=== PATIENT | female | born 1940 | race Caucasian/White ===

== ENCOUNTER 2017-03-03 08:24 | Inpatient (IN) | payer MEDICARE, BC ==
[2017-03-03] MEDS ORDERED: Sodium Chloride 0.9% 10 ML Syringe FLUSH PRN (08:52)
--- NOTE | 2017-03-03 08:55 | EDM.PDOC ---
ED HPI GENERAL MEDICAL PROBLEM - General Chief Complaint: Syncope Stated Complaint: DIZZY,NAUSEA,UNSTABLE Time Seen by Provider: 03/03/17 08:50 Source of Information: Reports: Patient History Limitations: Reports: No Limitations - History of Present Illness INITIAL COMMENTS - FREE TEXT/NARRATIVE: 76-year-old female presents to the ED due to increasing shortness of breath and dizziness. Started about 3 days ago. She developed right shoulder pain with inspiration over the last day. No cough or sputum production. He is running a low-grade fever but 11 in the ED. Denies any genitourinary complaints other than frequency which is normal for her. She was up most of the night due to dyspnea. She has not taken her normal meds today yet. No change in her medications recently. On arrival O2 sats were in the low 80s and even on 4 L she 's only 91%. Feeling very weak and dizzy and near-syncopal when she stands up. Reports she has been eating and drinking not too badly. Onset: Gradual (Over the last 3-4 days per) Onset Date: 02/28/17 Duration: Day(s): Location: Reports: Chest (Right shoulder discomfort shortness of breath) Quality: Reports: Other (No chest pain.) Severity: Moderate Improves with: Reports: None Worsens with: Reports: Other (Standing and movement make things worse.) Context: Denies: Activity, Exercise, Lifting, Sick Contact, Trauma, Other Associated Symptoms: Reports: Chest Pain (Right shoulder pain), Cough, Fever/ Chills (Fever appreciated at 11), Loss of Appetite, Malaise, Shortness of Breath , Weakness (Generalized the). 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.) Right Shoulder Pain Score (Numeric/FACES): 5 - Related Data Allergies Allergy/AdvReac Type Severity Reaction Status Date / Time codeine Allergy Hives Verified 03/03/17 09:04 moxifloxacin [From Avelox] Allergy Itching Verified 03/03/17 09:04 Penicillins Allergy Hives Verified 03/03/17 09:04 Home Meds: Home Meds Albuterol [Ventolin HFA] 2 puff INH Q4HR PRN 03/03/17 [History] Bisacodyl [Dulcolax] 5 mg PO DAILY PRN 03/03/17 [History] Calcium Carbonate/Vitamin D3 [Calcium 500 + Vit D 400] 2 tab PO BID 03/03/17 [ History] Clemastine Fumarate 1 tab PO BID 03/03/17 [History] Fluticasone/Salmeterol [Advair Diskus 500-50] 1 puff INH BID 03/03/17 [History] Furosemide [Lasix] 40 mg PO ASDIRECTED PRN 03/03/17 [History] Ibuprofen 600 mg PO TID 03/03/17 [History] Levothyroxine [Synthroid] 100 mcg PO QAM 03/03/17 [History] Magnesium Oxide 500 mg PO BID 03/03/17 [History] Montelukast [Singulair] 10 mg PO QAM 03/03/17 [History] Omeprazole 20 mg PO QAM 03/03/17 [History] Valsartan/Hydrochlorothiazide [Valsartan-Hctz 80-12.5 mg Tab] 1 tab PO QAM 03/03 [History] Zolpidem [Ambien] 5 mg PO QPM 03/03/17 [History] amLODIPine [Norvasc] 5 mg PO QAM 03/03/17 [History] traMADol [Ultram] 50 mg PO Q4HR PRN 03/03/17 [History] Past Medical History Cardiovascular History: Reports: Heart Failure, SOB on Exertion Respiratory History: Reports: Asthma, COPD Genitourinary History: Reports: Urinary Incontinence (Urge incontinence) - Past Surgical History HEENT Surgical History: Reports: Adenoidectomy, Tonsillectomy GI Surgical History: Reports: Cholecystectomy Female Surgical History: Reports: Hysterectomy, Salpingo-Oophorectomy Social & Family History - Living Situation & Occupation Living situation: Reports: Single 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 Denies: Weight Loss Respiratory: Reports: Shortness of Breath, Wheezing, Cough. Denies: Pleuritic Chest Pain, Sputum, Hemoptysis, Other Cardiovascular: Reports: Blood Pressure Problem, Dyspnea on Exertion, Lightheadedness, Orthopnea, Palpitations. Denies: Chest Pain, Claudication ( Usually runs a little low.), Edema Endocrine: Reports: Fatigue (Occasional.) GI/Abdominal: Denies: Abdominal Pain : Reports: Frequency, Urgency Musculoskeletal: Reports: Joint Pain Skin: Reports: No Symptoms (Sometimes knees hips and low back.) Neurological: Reports: Dizziness, Difficulty Walking, Weakness. Denies: Headache (Often feels like she's going to pass out the last few days when she standing.), Numbness, Paresthesia, Pre-Existing Deficit, Seizure, Syncope, Tingling, Tremors, Trouble Speaking, Change in Speech Psychiatric: Reports: No Symptoms Hematologic/Lymphatic: Reports: No Symptoms Immunologic: Reports: No Symptoms ED EXAM, DIZZINESS - Physical Exam Exam: See Below Exam Limited By: No Limitations General Appearance: Alert, WD/WN, Mild Distress Eye Exam: Bilateral Eye: Normal Inspection Ears: Normal External Exam, Normal Canal, Hearing Grossly Normal Nose: Normal Inspection, Normal Mucosa Throat/Mouth: Normal Inspection, Normal Lips, Normal Oropharynx Head Exam: Atraumatic, Normocephalic Neck: Normal Inspection, Supple, Non-Tender, Full Range of Motion, Other ( Increased jugular venous pulsations.). No: Lymphadenopathy (L), Lymphadenopathy (R) Respiratory/Chest: Respiratory Distress (Mild tachypnea), Crackles (Both bases worse on the right as compared to the left.), Wheezing (Scattered wheezes.) Cardiovascular: Normal Peripheral Pulses, Regular Rate, Rhythm, No Edema, No Gallop, No Murmur, No Rub, JVD (3 cm from the angle of the mandible.) GI/Abdominal: Normal Bowel Sounds, Soft, Non-Tender, No Organomegaly, Distended (Tympany to percussion upper abdomen compatible with aerophagia.) Neurological: Alert, Normal Mood/Affect, Normal Dorsiflexion, CN II-XII Intact, Normal Plantar Flexion, Oriented x 3. No: Normal Gait Back Exam: Normal Inspection, Full Range of Motion Extremities: Normal Inspection, Normal Range of Motion, Non-Tender, No Pedal Edema, Normal Capillary Refill Psychiatric: Normal Affect, Normal Mood Skin Exam: Warm, Dry, Intact, Normal Color, No Rash EKG INTERPRETATION EKG Date: 03/03/17 Time: 08:55 Rhythm: NSR Rate (beats/min): 98 [place]: LAD-left axis deviation (mild LAD -5 degrees.) P-wave: present QRS: other (There are Q waves in leads 3 and aVF questionable old inferior wall myocardial infarction. Decreased both in short the limb leads.) ST-T: other (T waves are flat inverted in one and aVL.) QT: prolonged (Mildly prolonged at 393.) Course - Vital Signs Last Recorded V/S: Last Vital Signs Temp 38.1 C 03/03/17 08:47 Pulse 102 H 03/03/17 08:47 Resp 18 03/03/17 08:47 BP 93/46 L 03/03/17 08:47 Pulse Ox 91 L 03/03/17 09:27 Orthostatic Blood Pressure [ 110/50 Standing] Orthostatic Blood Pressure [ 102/48 Sitting] Orthostatic Blood Pressure [ 96/46 Supine] - Orders/Labs/Meds Orders: Active Orders 24 hr Category Date Time Status EKG Documentation Completion [RC] STAT Care 03/03/17 08:50 Active Orthostatic Vital Signs [RC] ASDIRECTED Care 03/03/17 08:55 Active Oxygen Therapy [RC] ASDIRECTED Care 03/03/17 08:51 Active Peripheral IV Care [RC] . DIRECTED Care 03/03/17 08:53 Active RT Aerosol Therapy [RC] ASDIRECTED Care 03/03/17 09:03 Active Chest 1V Frontal [CR] Stat Exams 03/03/17 08:50 Taken CULTURE BLOOD [BC] Stat Lab 03/03/17 09:12 Received CULTURE BLOOD [BC] Stat Lab 03/03/17 09:19 Received Azithromycin [Zithromax] 500 mg Med 03/03/17 10:42 Ordered Sodium Chloride 0.9% [Normal Saline] 250 ml IV ONETIME Sodium Chloride 0.9% [Saline Flush] Med 03/03/17 08:52 Active 10 ml FLUSH ASDIRECTED PRN cefTRIAXone [Rocephin] 2 gm Med 03/03/17 10:30 Active Sodium Chloride 0.9% [Normal Saline] 100 ml IV Q24H Blood Culture x2 Reflex Set [OM.PC] Stat Oth 03/03/17 08:53 Ordered Peripheral IV Insertion Adult [OM.PC] Stat Oth 03/03/17 08:53 Ordered Medication Orders Ceftriaxone Sodium 2 gm/ (Sodium Chloride) 100 mls @ 200 mls/hr IV Q24H [facility] Last Admin: 03/03/17 10:29 Dose: 200 mls/hr Sodium Chloride (Saline Flush) 10 ml FLUSH ASDIRECTED PRN PRN Reason: Keep Vein Open Last Admin: 03/03/17 09:59 Dose: 10 ml Labs: Laboratory Tests 03/03/17 03/03/17 03/03/17 Range/Units 08:51 09:05 09:05 WBC 26.67 H (3.98-10.04) K/mm3 RBC 4.87 (3.98-5.22) M/mm3 Hgb 12.8 (11.2-15.7) gm/L Hct 39.8 (34.1-44.9) % MCV 81.7 (79.4-94.8) fl MCH 26.3 (25.6-32.2) pg MCHC 32.2 (32.2-35.5) g/dl RDW Std Deviation 45.1 (36.4-46.3) fL Plt Count 249 (182-369) K/mm3 MPV 11.0 (9.4-12.3) fl Neutrophils % (Manual) 87 H (40-60) % Band Neutrophils % 0 (0-10) % Lymphocytes % (Manual) 8 L (20-40) % Atypical Lymphs % 0 % Monocytes % (Manual) 4 (2-10) % Eosinophils % (Manual) 1 (0.7-5.8) % Basophils % (Manual) 0 L (0.1-1.2) Platelet Estimate Adequate RBC Morph Comment Normal PT 13.3 H (8.0-13.0) SECONDS INR 1.21 Puncture Site Rt radial ABG pH 7.43 (7.35-7.45) ABG pCO2 36.3 (35.0-45.0) mmHg ABG pO2 55.0 L (80.0-100.0) mmHg ABG HCO3 23.7 (22.0-26.0) meq/L ABG O2 Saturation 92.2 L (96.0-97.0) % ABG Base Excess 0.3 (-2-2.0) Lei Test Positive A-a Gradient 130 mmHg O2 Delivery Device Nasal cannula Oxygen Flow Rate 4.0 FiO2 36.00 (21.00-100.00) % Sodium (136-145) mEq/L Potassium (3.5-5.1) mEq/L Chloride (98-107) mEq/L Carbon Dioxide (21-32) mEq/L Anion Gap (5-15) BUN (7-18) mg/dL Creatinine (0.55-1.02) mg/dL Est Cr Clr Drug Dosing mL/min Estimated GFR (MDRD) (>60) mL/min BUN/Creatinine Ratio (14-18) Glucose (83-115) mg/dL Calcium (8.5-10.1) mg/dL Magnesium (1.8-2.4) mg/dl Total Bilirubin (0.2-1.0) mg/dL AST (15-37) U/L ALT (14-59) U/L Alkaline Phosphatase (46-116) U/L CK-MB (CK-2) (0-3.6) ng/ml Troponin I (0.00-0.056) ng/mL C-Reactive Protein (<1.0) mg/dL B-Natriuretic Peptide (0-100) pg/mL Total Protein (6.4-8.2) g/dl Albumin (3.4-5.0) g/dl Globulin gm/dL Albumin/Globulin Ratio (1-2) Urine Color (Yellow) Urine Appearance (Clear) Urine pH (5.0-8.0) Ur Specific [place] (1.005-1.030) Urine Protein (Negative) Urine Glucose (UA) (Negative) Urine Ketones (Negative) Urine Occult Blood (Negative) Urine Nitrite (Negative) Urine Bilirubin (Negative) Urine Urobilinogen (0.2-1.0) Ur Leukocyte Esterase (Negative) Urine RBC (0-5) /hpf Urine WBC (0-5) /hpf Ur Epithelial Cells (0-5) /hpf Urine Bacteria (FEW) /hpf Hyaline Casts (0-5) /lpf Urine Mucus (FEW) /hpf 03/03/17 03/03/17 03/03/17 Range/Units 09:05 09:05 09:50 WBC (3.98-10.04) K/mm3 RBC (3.98-5.22) M/mm3 Hgb (11.2-15.7) gm/L Hct (34.1-44.9) % MCV (79.4-94.8) fl MCH (25.6-32.2) pg MCHC (32.2-35.5) g/dl RDW Std Deviation (36.4-46.3) fL Plt Count (182-369) K/mm3 MPV (9.4-12.3) fl Neutrophils % (Manual) (40-60) % Band Neutrophils % (0-10) % Lymphocytes % (Manual) (20-40) % Atypical Lymphs % % Monocytes % (Manual) (2-10) % Eosinophils % (Manual) (0.7-5.8) % Basophils % (Manual) (0.1-1.2) Platelet Estimate RBC Morph Comment PT (8.0-13.0) SECONDS INR Puncture Site ABG pH (7.35-7.45) ABG pCO2 (35.0-45.0) mmHg ABG pO2 (80.0-100.0) mmHg ABG HCO3 (22.0-26.0) meq/L ABG O2 Saturation (96.0-97.0) % ABG Base Excess (-2-2.0) Lei Test A-a Gradient mmHg O2 Delivery Device Oxygen Flow Rate FiO2 (21.00-100.00) % Sodium 137 (136-145) mEq/L Potassium 3.7 (3.5-5.1) mEq/L Chloride 101 (98-107) mEq/L Carbon Dioxide 25 (21-32) mEq/L Anion Gap 14.7 (5-15) BUN 30 H (7-18) mg/dL Creatinine 1.2 H (0.55-1.02) mg/dL Est Cr Clr Drug Dosing 38.18 mL/min Estimated GFR (MDRD) 44 (>60) mL/min BUN/Creatinine Ratio 25.0 H (14-18) Glucose 109 (83-115) mg/dL Calcium 8.2 L (8.5-10.1) mg/dL Magnesium 1.8 (1.8-2.4) mg/dl Total Bilirubin 1.0 (0.2-1.0) mg/dL AST 17 (15-37) U/L ALT 16 (14-59) U/L Alkaline Phosphatase 69 (46-116) U/L CK-MB (CK-2) 0.6 (0-3.6) ng/ml Troponin I < 0.017 (0.00-0.056) ng/mL C-Reactive Protein 37.4 H* (<1.0) mg/dL B-Natriuretic Peptide 600 H (0-100) pg/mL Total Protein 6.1 L (6.4-8.2) g/dl Albumin 3.0 L (3.4-5.0) g/dl Globulin 3.1 gm/dL Albumin/Globulin Ratio 1.0 (1-2) Urine Color Dark yellow (Yellow) Urine Appearance Clear (Clear) Urine pH 6.0 (5.0-8.0) Ur Specific [place] 1.025 (1.005-1.030) Urine Protein 1+ H (Negative) Urine Glucose (UA) Negative (Negative) Urine Ketones Negative (Negative) Urine Occult Blood Negative (Negative) Urine Nitrite Negative (Negative) Urine Bilirubin 1+ H (Negative) Urine Urobilinogen 0.2 (0.2-1.0) Ur Leukocyte Esterase Trace H (Negative) Urine RBC 0-5 (0-5) /hpf Urine WBC 5-10 H (0-5) /hpf Ur Epithelial Cells 0-5 (0-5) /hpf Urine Bacteria Few (FEW) /hpf Hyaline Casts 0-5 (0-5) /lpf Urine Mucus Moderate H (FEW) /hpf Meds: Medications Generic Name Dose Route Start Last Admin Trade Name Maris PRN Reason Stop Dose Admin Ceftriaxone Sodium 2 gm/ 100 mls @ 200 mls/hr 03/03/17 10:30 03/03/17 10:29 Sodium Chloride IV 200 mls/hr Q24H [facility] Administration Sodium Chloride 10 ml 03/03/17 08:52 03/03/17 09:59 Saline Flush FLUSH 10 ml ASDIRECTED PRN Administration Keep Vein Open Discontinued Medications Generic Name Dose Route Start Last Admin Trade Name Freq PRN Reason Stop Dose Admin Albuterol/Ipratropium 3 ml 03/03/17 09:03 03/03/17 09:26 Duoneb 3.0-0.5 Mg/3 Ml NEB 03/03/17 09:04 3 ml ONETIME ONE Administration Furosemide 40 mg 03/03/17 09:04 03/03/17 09:59 Lasix IVPUSH 03/03/17 09:05 40 mg NOW ONE Administration - Radiology Interpretation Free Text/Narrative:: 76-year-old nazia Eason presents the ED due to gradually worsening dyspnea over the last 2-3 days with a nonproductive cough. She was found to be febrile in the ED which was new to her. She is complaining of pain in her right shoulder and being very dizzy and lightheaded when she standing. BP at rest was 93/54. Heart rate is sinus. She does have a temperature 100. Crackles heard in both bases worse on the right as compared to the left. O2 sats were only 82% on room air. On 4 L she is 91-92%. She does have a history of COPD/asthma. She of congestive failure. No recent changes to her medications. Clinically has experienced an exacerbation of congestive failure. Fever needs to be investigated and blood cultures x2 were ordered. Possible infection in lower right lobe of lung. - Re-Assessments/Exams Free Text/Narrative Re-Assessment/Exam: 03/03/17 10:09 portable chest x-ray reveals right-sided pleural effusion with irregularities in the base of the lung suggestive of likely infection as well. There is an infiltrate in the right lower lobe compatible with a pneumonia. Will go ahead and start her on Rocephin 2 g IV and she will also require Zithromax 500mg IV as well. She has an allergy listed to moxifloxacin and therefore Levaquin is relatively contraindicated. She also lists an allergy to penicillin but she did not have any anaphylaxis and was more rash.. 03/03/17 10:12 labs reveal a markedly elevated white count at 26.67 with 87% neutrophils and no band cells reported hemoglobin 12.8 hematocrit 39.8. Platelets were normal at 249,000. Chemistry shows a sodium of 137 potassium of 3.7 anion gap is 14.7. BUN is mildly elevated at 30 creatinine is 1.2 EGFR is 44. Blood gases revealed a pH of 7.43 with a PCO2 of 36.3. PO2 of 55%. Bicarbonate is elevated at 36.3 indicating she is a CO2 retainer. Sats are 92%. Glucose was 109 BNP is elevated at 600. Coags reveal a PT of 13.3 and INR of 1.21. Of note her med list is not suggests she's on any Coumadin. Reason for auto anticoagulation is unclear. 03/03/17 10:30: Case discussed with Dr. Love and she will see the patient in the ED with a view to admission to the hospital med surgery on telemetry. Departure - Departure Time of Disposition: 10:46 Disposition: Admitted As Inpatient 65 Condition: fair Clinical Impression: Hypoxia Acute exacerbation of congestive heart failure Qualifiers: Congestive heart failure type: unspecified congestive heart failure type Qualified Code(s): I50.9 - Heart failure, unspecified Pneumonia Qualifiers: Pneumonia type: due to unspecified organism Laterality: right Lung location: lower lobe of lung Qualified Code(s): J18.1 - Lobar pneumonia, unspecified organism Hypotension Qualifiers: Hypotension type: unspecified hypotension type Qualified Code(s): I95.9 - Hypotension, unspecified - Discharge Information Referrals: Zuleyma Birmingham NP [Primary Care Provider] - - My Orders Last 24 Hours: My Active Orders 03/03/17 08:50 EKG Documentation Completion [RC] STAT Chest 1V Frontal [CR] Stat 03/03/17 08:51 Oxygen Therapy [RC] ASDIRECTED 03/03/17 08:52 Sodium Chloride 0.9% [Saline Flush] 10 ml FLUSH ASDIRECTED PRN 03/03/17 08:53 Peripheral IV Care [RC] . DIRECTED Blood Culture x2 Reflex Set [OM.PC] Stat Peripheral IV Insertion Adult [OM.PC] Stat 03/03/17 08:55 Orthostatic Vital Signs [RC] ASDIRECTED 03/03/17 09:03 RT Aerosol Therapy [RC] ASDIRECTED 03/03/17 09:12 CULTURE BLOOD [BC] Stat 03/03/17 09:19 CULTURE BLOOD [BC] Stat 03/03/17 10:30 cefTRIAXone [Rocephin] 2 gm Sodium Chloride 0.9% [Normal Saline] 100 ml IV Q24H 03/03/17 10:42 Azithromycin [Zithromax] 500 mg Sodium Chloride 0.9% [Normal Saline] 250 ml IV ONETIME - Assessment/Plan Last 24 Hours: My Active Orders 03/03/17 08:50 EKG Documentation Completion [RC] STAT Chest 1V Frontal [CR] Stat 03/03/17 08:51 Oxygen Therapy [RC] ASDIRECTED 03/03/17 08:52 Sodium Chloride 0.9% [Saline Flush] 10 ml FLUSH ASDIRECTED PRN 03/03/17 08:53 Peripheral IV Care [RC] . DIRECTED Blood Culture x2 Reflex Set [OM.PC] Stat Peripheral IV Insertion Adult [OM.PC] Stat 03/03/17 08:55 Orthostatic Vital Signs [RC] ASDIRECTED 03/03/17 09:03 RT Aerosol Therapy [RC] ASDIRECTED 03/03/17 09:12 CULTURE BLOOD [BC] Stat 03/03/17 09:19 CULTURE BLOOD [BC] Stat 03/03/17 10:30 cefTRIAXone [Rocephin] 2 gm Sodium Chloride 0.9% [Normal Saline] 100 ml IV Q24H 03/03/17 10:42 Azithromycin [Zithromax] 500 mg Sodium Chloride 0.9% [Normal Saline] 250 ml IV ONETIME
[2017-03-03] MEDS ORDERED: Albuterol/Ipratropium 3.0-0.5 MG/3 ML Neb Soln NEB ONE (09:03)
[2017-03-03] MEDS ORDERED: Furosemide 40 MG/4 ML VIAL IVPUSH ONE (09:04)
[2017-03-03] MEDS ORDERED: cefTRIAXone 2 GM in Sodium Chloride 0.9% 100 ML IV SCH (10:30)
[2017-03-03] MEDS ORDERED: Azithromycin 500 MG in Sodium Chloride 0.9% 250 ML IV ONE (10:42)
[2017-03-03] MEDS ORDERED: Pneumococcal Polyvalent-23 Vaccine 0.5 ML SDV IM ONE (12:20)
--- NOTE | 2017-03-03 13:24 | PCM.HP ---
H&P History of Present Illness - General Date of Service: 03/03/17 Admit Problem/Dx: Admission Diagnosis/Problem Admission Diagnosis/Problem Pneumonia Source of Information: Patient, Provider History Limitations: Reports: No Limitations - History of Present Illness Initial Comments - Free Text/Narative: 76 year old female with history of COPD, presents shortness of breath that is associated with minimal cough. She had pleritic chest pain, and a low grade fever. Difficulty sleeping was noted without orthopnea. On arrival to the ED, the patient was hypoxic, after 4 liters via NC, the saturation increased to 91% . Vital signs on initial evaluation in the ED: HR 102, RR 18, BP 93/46, pulse ox 91%. Onset of Symptoms: Reports: Gradual Symptom Onset Date: 02/28/17 Duration of Symptoms: Reports: Day(s):, Getting Worse Location: Reports: Chest, Generalized Quality: Reports: Same as Previous Episode Severity: Moderate Worsens with: Reports: Breathing Associated Symptoms: Reports: Cough, Shortness of Breath, Weakness Right Shoulder Pain Score (Numeric/FACES): 3 - Related Data Allergies/Adverse Reactions: Allergies Allergy/AdvReac Type Severity Reaction Status Date / Time codeine Allergy Hives Verified 03/03/17 12:22 moxifloxacin [From Avelox] Allergy Itching Verified 03/03/17 12:22 Penicillins Allergy Hives Verified 03/03/17 12:22 Home Medications: Home Meds Albuterol [Ventolin HFA] 2 puff INH Q4HR PRN 03/03/17 [History] Bisacodyl [Dulcolax] 5 mg PO DAILY PRN 03/03/17 [History] Calcium Carbonate/Vitamin D3 [Calcium 500 + Vit D 400] 2 tab PO BID 03/03/17 [ History] Clemastine Fumarate 1 tab PO BID 03/03/17 [History] Fluticasone/Salmeterol [Advair Diskus 500-50] 1 puff INH BID 03/03/17 [History] Furosemide [Lasix] 40 mg PO ASDIRECTED PRN 03/03/17 [History] Ibuprofen 600 mg PO TID 03/03/17 [History] Levothyroxine [Synthroid] 100 mcg PO QAM 03/03/17 [History] Magnesium Oxide 500 mg PO BID 03/03/17 [History] Montelukast [Singulair] 10 mg PO QAM 03/03/17 [History] Omeprazole 20 mg PO QAM 03/03/17 [History] Valsartan/Hydrochlorothiazide [Valsartan-Hctz 80-12.5 mg Tab] 1 tab PO QAM 03/03 [History] Zolpidem [Ambien] 5 mg PO QPM 03/03/17 [History] amLODIPine [Norvasc] 5 mg PO QAM 03/03/17 [History] traMADol [Ultram] 50 mg PO Q4HR PRN 03/03/17 [History] Past Medical History Cardiovascular History: Reports: Heart Failure, Hypertension, SOB on Exertion Respiratory History: Reports: Asthma, COPD Gastrointestinal History: Reports: Hiatal Hernia Genitourinary History: Reports: Urinary Incontinence (Urge incontinence) Musculoskeletal History: Reports: Arthritis Endocrine/Metabolic History: Reports: Hypothyroidism Dermatologic History: Reports: Eczema - Infectious Disease History Infectious Disease History: Reports: Chicken Pox, Measles, Mumps, Shingles - Past Surgical History HEENT Surgical History: Reports: Adenoidectomy, Tonsillectomy Cardiovascular Surgical History: Reports: None Respiratory Surgical History: Reports: Other (See Below) Other Respiratory Surgeries/Procedures: Removed phlem from lung, post pneumonia GI Surgical History: Reports: Cholecystectomy, Hernia, Abdominal Female Surgical History: Reports: Hysterectomy, Salpingo-Oophorectomy Endocrine Surgical History: Reports: None Neurological Surgical History: Reports: Laminectomy, Other (See Below) Other Neurological Surgeries/Procedures: mata, and six screws in back 2016 Musculoskeletal Surgical History: Reports: Hip Replacement, Knee Replacement Other Musculoskeletal Surgeries/Procedures:: problems with left hip dislocations , R-knee, and bilat hip Dermatological Surgical History: Reports: None Social & Family History - Family History Family Medical History: Noncontributory - Tobacco Use Smoking Status *Q: Never Smoker Second Hand Smoke Exposure: No - Caffeine Use Caffeine Use: Reports: Coffee Other Caffeine Use: 4 cups a day - Recreational Drug Use Recreational Drug Use: No - Living Situation & Occupation Living situation: Reports: Single 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.) H&P Review of Systems - Review of Systems: Review Of Systems: See Below General: Reports: Fever, Chills, Malaise, Weakness HEENT: Reports: No Symptoms Pulmonary: Reports: Shortness of Breath, Wheezing, Pleuritic Chest Pain Cardiovascular: Reports: No Symptoms Gastrointestinal: Reports: No Symptoms Genitourinary: Reports: No Symptoms Musculoskeletal: Reports: No Symptoms Skin: Reports: No Symptoms Psychiatric: Reports: No Symptoms Neurological: Reports: No Symptoms Hematologic/Lymphatic: Reports: No Symptoms Immunologic: Reports: No Symptoms Exam - Exam Exam: See Below - Vital Signs Vital Signs: Last Vital Signs Temp 36.8 C 03/03/17 11:39 Pulse 93 03/03/17 11:39 Resp 21 H 03/03/17 11:39 BP 109/45 L 03/03/17 11:39 Pulse Ox 93 L 03/03/17 11:39 Weight: 72.303 kg - Exam Quality Assessment: Supplemental Oxygen General: Alert, Oriented, Cooperative HEENT: Conjunctiva Clear, Nares Patent, Normal Nasal Septum, Pupils Equal, Pupils Reactive Neck: Supple, Trachea Midline Lungs: Normal Respiratory Effort Cardiovascular: Regular Rate, Regular Rhythm Abdomen: Normal Bowel Sounds, Soft (Female) Exam: Deferred Rectal (Female) Exam: Deferred Back Exam: Normal Inspection Extremities: Normal Pulses Skin: Warm Neurological: Cranial Nerves Intact Neuro Extensive - Mental Status: Alert, Oriented x3, Normal Mood/Affect, Normal Cognition, Memory Intact Neuro Extensive - Motor, Sensory, Reflexes: CN II-XII Intact Psychiatric: Alert, Normal Affect, Normal Mood - Patient Data Result Diagrams: 03/03/17 09:05 03/03/17 09:05 *Q Meaningful Use (ADM) - VTE *Q VTE Criteria *Q: - Stroke *Q Stroke Criteria *Q: - AMI *Q AMI Criteria *Q: - Problem List (1) Acute exacerbation of congestive heart failure SNOMED Code(s): 36624142 ICD Code: I50.9 - HEART FAILURE, UNSPECIFIED Status: Acute Current Visit : Yes Qualifiers: Congestive heart failure type: unspecified congestive heart failure type Qualified Code(s): I50.9 - Heart failure, unspecified (2) Hypotension SNOMED Code(s): 04275509 ICD Code: I95.9 - HYPOTENSION, UNSPECIFIED Status: Acute Current Visit: Yes Qualifiers: Hypotension type: unspecified hypotension type Qualified Code(s): I95.9 - Hypotension, unspecified (3) Hypoxia SNOMED Code(s): 154200202, 217014314 ICD Code: R09.02 - HYPOXEMIA Status: Acute Current Visit: Yes (4) Pneumonia SNOMED Code(s): 552347287 ICD Code: J18.9 - PNEUMONIA, UNSPECIFIED ORGANISM Status: Acute Current Visit: Yes Qualifiers: Pneumonia type: due to unspecified organism Laterality: right Lung location: lower lobe of lung Qualified Code(s): J18.1 - Lobar pneumonia, unspecified organism Problem List Initiated/Reviewed/Updated: Yes Orders Last 24hrs: Active Orders 24 hr Category Date Time Status Clear Liquid Diet [DIET] Diet 03/03/17 Dinner Active Pneumococcal Polyvalent-23 Vac [Pneumovax 23] Med 03/03/17 12:20 Pending 0.5 ml IM .ONCE ONE Medication Orders Ceftriaxone Sodium 2 gm/ (Sodium Chloride) 100 mls @ 200 mls/hr IV Q24H [facility] Last Admin: 03/03/17 10:29 Dose: 200 mls/hr Pneumococcal Polyvalent Vaccine (Pneumovax 23) 0.5 ml IM .ONCE ONE Stop: 03/03/17 12:21 Sodium Chloride (Saline Flush) 10 ml FLUSH ASDIRECTED PRN PRN Reason: Keep Vein Open Last Admin: 03/03/17 09:59 Dose: 10 ml Assessment/Plan Comment:: Impression: CAP, no recent exposure Hypoxic Febrile Marked elevation of CRP/WBCs History of COPD Chronic CHF, unknown HTN Plan: IVF Zithromax/Rocephin Nebs Home meds IV Steroids DVT/GI prophylaxis Consult SW/PT/OT
[2017-03-03] MEDS: methylPREDNISolone Sodium Succinate 40 MG/1 ML SDV IVPUSH SCH (14:49)
[2017-03-03] MEDS: traMADol 50 MG Tab PO PRN (14:49)
[2017-03-03] MEDS: Sodium Chloride 0.9% 1,000 ML IV SCH (16:05)
[2017-03-03] MEDS ORDERED: Zolpidem 5 MG Tab PO SCH (18:00)
[2017-03-03] MEDS: Fluticasone/Salmeterol 500-50 MCG Inhalation Powder 14/Diskus INH SCH (20:17)
[2017-03-03] MEDS: Magnesium Oxide 400 MG Tab PO SCH (20:27)
[2017-03-03] MEDS: Zolpidem 5 MG Tab PO SCH (20:27)
[2017-03-03] MEDS: Bisacodyl 5 MG Tab PO PRN (20:27)
[2017-03-04] MEDS: diphenhydrAMINE 25 MG Cap PO SCH ×3 (01:26→10:41)
[2017-03-04] MEDS ORDERED: Diltiazem 125 MG in Sodium Chloride 0.9% 100 ML IV SCH (02:00)
[2017-03-04] MEDS ORDERED: Sodium Chloride 0.9% 100 ML ONE (02:05)
[2017-03-04] MEDS: Levothyroxine 100 MCG Tab PO SCH (05:30)
[2017-03-04] MEDS: Sodium Chloride 0.9% 1,000 ML IV SCH (05:30)
[2017-03-04] MEDS: Pantoprazole 40 MG Tab.CR PO SCH (06:20)
[2017-03-04] MEDS: Calcium Carbonate/Vitamin D3 1500 MG-200 Units Tab PO SCH ×3 (07:26→21:25)
[2017-03-04] MEDS ORDERED: Sodium Chloride 0.9% 10 ML Syringe FLUSH PRN (07:34)
--- NOTE | 2017-03-04 07:50 | CR ---
Chest: Portable view of the chest was obtained. Comparison: No previous study. Increased density within the right base is seen. Minimal atelectasis within the left base is noted. Upper lungs are clear. Heart size and mediastinum are normal. Degenerative change is noted within both shoulders. Impression: 1. Increased density within right lung base most likely representing pneumonia. 2. Other findings which are felt to be incidental as described above. Diagnostic code #3
[2017-03-04] MEDS: Montelukast 10 MG Tab PO SCH (08:00)
[2017-03-04] MEDS: Magnesium Oxide 400 MG Tab PO SCH ×2 (08:00→21:26)
[2017-03-04] MEDS: Hydrochlorothiazide 12.5 MG Cap PO SCH (08:00)
[2017-03-04] MEDS: methylPREDNISolone Sodium Succinate 40 MG/1 ML SDV IVPUSH SCH (08:01)
[2017-03-04] MEDS: Losartan 25 MG Tab PO SCH (08:18)
[2017-03-04] MEDS: amLODIPine 5 MG Tab PO SCH (08:18)
[2017-03-04] MEDS: Fluticasone/Salmeterol 500-50 MCG Inhalation Powder 14/Diskus INH SCH ×2 (08:23→20:24)
[2017-03-04] MEDS ORDERED: Azithromycin 500 MG in Sodium Chloride 0.9% 250 ML IV SCH (09:00)
[2017-03-04] MEDS ORDERED: Enoxaparin 40 MG/0.4 ML Syringe SUBCUT SCH (09:00)
[2017-03-04] MEDS ORDERED: cefTRIAXone 2 GM in Sodium Chloride 0.9% 100 ML IV SCH (10:30)
[2017-03-04] MEDS: Saccharomyces Boulardii (Probiotic) 250 MG Cap PO SCH ×2 (10:39→21:25)
[2017-03-04] MEDS: Levofloxacin/Dextrose 5%-Water 750 MG in Premix Bag 1 BAG IV SCH (13:01)
[2017-03-04] MEDS: Metoprolol Tartrate 25 MG Tab PO SCH ×2 (13:01→21:43)
[2017-03-04] MEDS: Potassium Chloride 10% 20 MEQ/15 ML Soln 30 ML UD Cup PO SCH ×2 (13:01→21:25)
--- NOTE | 2017-03-04 19:35 | PCM.PN ---
- General Info Date of Service: 03/04/17 Functional Status: Reports: tolerating diet, ambulating - Review of Systems General: Reports: No Symptoms HEENT: Reports: no symptoms Pulmonary: Reports: shortness of breath (improved) Cardiovascular: Reports: No Symptoms Gastrointestinal: Reports: No symptoms Genitourinary: Reports: no symptoms Musculoskeletal: Reports: no symptoms Skin: Reports: no symptoms Neurological: Reports: No Symptoms Psychiatric: Reports: no symptoms - Patient Data Vitals - most recent: Last Vital Signs Temp 36.2 C 03/04/17 16:00 Pulse 75 03/04/17 13:01 Resp 14 03/04/17 16:00 BP 102/57 L 03/04/17 16:00 Pulse Ox 2 L 03/04/17 16:00 Weight - most recent: 72.983 kg I&O - last 24 hours: Intake & Output 03/04/17 03/04/17 03/04/17 06:59 14:59 22:59 Intake Total 696 1976 Output Total 300 500 Balance 396 1476 Lab Results last 24 hrs: Laboratory Results - last 24 hr 03/04/17 03/04/17 Range/Units 06:25 06:25 WBC 22.05 H (3.98-10.04) K/mm3 RBC 4.47 (3.98-5.22) M/mm3 Hgb 11.7 (11.2-15.7) gm/L Hct 36.6 (34.1-44.9) % MCV 81.9 (79.4-94.8) fl MCH 26.2 (25.6-32.2) pg MCHC 32.0 L (32.2-35.5) g/dl RDW Std Deviation 43.8 (36.4-46.3) fL Plt Count 229 (182-369) K/mm3 MPV 11.3 (9.4-12.3) fl Neut % (Auto) 95.4 H (34.0-71.1) % Lymph % (Auto) 1.6 L (19.3-51.7) % Blaine % (Auto) 2.2 L (4.7-12.5) % Eos % (Auto) 0 L (0.7-5.8) Baso % (Auto) 0.1 (0.1-1.2) % Neut # (Auto) 21.03 H (1.56-6.13) K/mm3 Lymph # (Auto) 0.36 L (1.18-3.74) K/mm3 Blaine # (Auto) 0.49 H (0.24-0.36) K/mm3 Eos # (Auto) 0.00 L (0.04-0.36) K/mm3 Baso # (Auto) 0.02 (0.01-0.08) K/mm3 Manual Slide Review Abnormal smear Sodium 138 (136-145) mEq/L Potassium 3.4 L (3.5-5.1) mEq/L Chloride 104 (98-107) mEq/L Carbon Dioxide 27 (21-32) mEq/L Anion Gap 10.4 (5-15) BUN 34 H (7-18) mg/dL Creatinine 0.9 (0.55-1.02) mg/dL Est Cr Clr Drug Dosing 50.90 mL/min Estimated GFR (MDRD) > 60 (>60) mL/min BUN/Creatinine Ratio 37.8 H (14-18) Glucose 156 H (83-115) mg/dL Calcium 7.9 L (8.5-10.1) mg/dL Magnesium 2.2 (1.8-2.4) mg/dl C-Reactive Protein 38.4 H* (<1.0) mg/dL Mycoplasma pneumon IgM Negative (NEGATIVE) Med Orders - Current: Current Medications Amlodipine Besylate (Norvasc) 5 mg PO QAM [facility] Last Admin: 03/04/17 08:18 Dose: Not Given Bisacodyl (Dulcolax) 5 mg PO DAILY PRN PRN Reason: Constipation Last Admin: 03/03/17 20:27 Dose: 5 mg Calcium Carbonate (Calcium Carbonate/Vitamin D 1500 Mg-200 Unit) 1 tab PO BID [facility] Last Admin: 03/04/17 08:00 Dose: 1 tab Enoxaparin Sodium (Lovenox) 40 mg SUBCUT DAILY [facility] Last Admin: 03/04/17 08:01 Dose: 40 mg Hydrochlorothiazide (Hydrochlorothiazide) 12.5 mg PO QAM [facility] Last Admin: 03/04/17 08:00 Dose: 12.5 mg Diltiazem HCl 125 mg/ Sodium (Chloride) 125 mls @ 5 mls/hr IV TITRATE [facility]; 5 MG /HR PRN Reason: Protocol Last Titration: 03/04/17 11:23 Dose: 0 mg/hr, 0 mls/hr Levofloxacin/Dextrose 750 mg/ (Premix) 150 mls @ 100 mls/hr IV Q24H [facility] Last Admin: 03/04/17 13:01 Dose: 100 mls/hr Levothyroxine Sodium (Synthroid) 100 mcg PO ACBREAKFAST [facility] Last Admin: 03/04/17 05:30 Dose: 100 mcg Losartan Potassium (Cozaar) 50 mg PO QAM [facility] Last Admin: 03/04/17 08:18 Dose: Not Given Magnesium Oxide (Magnesium Oxide) 400 mg PO BID [facility] Last Admin: 03/04/17 08:00 Dose: 400 mg Methylprednisolone Sodium Succinate (Solu-Medrol) 40 mg IVPUSH DAILY [facility] Last Admin: 03/04/17 08:01 Dose: 40 mg Metoprolol Tartrate (Lopressor) 12.5 mg PO Q8H [facility] Last Admin: 03/04/17 13:01 Dose: 12.5 mg Montelukast Sodium (Singulair) 10 mg PO QAM [facility] Last Admin: 03/04/17 08:00 Dose: 10 mg Pantoprazole Sodium (Protonix) 40 mg PO DAILY@0700 [facility] Last Admin: 03/04/17 06:20 Dose: 40 mg Potassium Chloride (Potassium Chloride) 40 meq PO BID [facility] Stop: 03/04/17 21:01 Last Admin: 03/04/17 13:01 Dose: 40 meq Saccharomyces Boulardii (Florastor) 250 mg PO BID [facility] Last Admin: 03/04/17 10:39 Dose: 250 mg Fluticasone/Salmeterol (Advair Diskus 500-50) 1 puff INH BID [facility] Last Admin: 03/04/17 08:23 Dose: 1 puff Sodium Chloride (Saline Flush) 10 ml FLUSH ASDIRECTED PRN PRN Reason: Keep Vein Open Tramadol HCl (Ultram) 50 mg PO Q4HR PRN PRN Reason: Pain Last Admin: 03/03/17 14:49 Dose: 50 mg Zolpidem Tartrate (Ambien) 5 mg PO BEDTIME [facility] Last Admin: 03/03/17 20:27 Dose: 5 mg Discontinued Medications Albuterol/Ipratropium (Duoneb 3.0-0.5 Mg/3 Ml) 3 ml NEB ONETIME ONE Stop: 03/03/17 09:04 Last Admin: 03/03/17 09:26 Dose: 3 ml Diphenhydramine HCl (Benadryl) 25 mg PO Q6H [facility] Last Admin: 03/04/17 10:41 Dose: Not Given Furosemide (Lasix) 40 mg IVPUSH NOW ONE Stop: 03/03/17 09:05 Last Admin: 03/03/17 09:59 Dose: 40 mg Ceftriaxone Sodium 2 gm/ (Sodium Chloride) 100 mls @ 200 mls/hr IV Q24H [facility] Last Admin: 03/03/17 10:29 Dose: 200 mls/hr Azithromycin 500 mg/ Sodium (Chloride) 250 mls @ 250 mls/hr IV ONETIME ONE Stop: 03/03/17 11:41 Last Admin: 03/03/17 11:01 Dose: 250 mls/hr Azithromycin 500 mg/ Sodium (Chloride) 250 mls @ 250 mls/hr IV Q24H [facility] Last Admin: 03/04/17 08:01 Dose: 250 mls/hr Sodium Chloride (Normal Saline) 1,000 mls @ 75 mls/hr IV ASDIRECTED [facility] Last Admin: 03/04/17 05:30 Dose: 75 mls/hr Sodium Chloride (Normal Saline) Confirm Administered Dose 100 mls @ as directed .ROUTE .STK-MED ONE Stop: 03/04/17 02:06 Last Admin: 03/04/17 02:43 Dose: Not Given Ceftriaxone Sodium 2 gm/ (Sodium Chloride) 100 mls @ 200 mls/hr IV Q24H [facility] Last Admin: 03/04/17 10:39 Dose: 200 mls/hr Pneumococcal Polyvalent Vaccine (Pneumovax 23) 0.5 ml IM .ONCE ONE Stop: 03/03/17 12:21 Sodium Chloride (Saline Flush) 10 ml FLUSH ASDIRECTED PRN PRN Reason: Keep Vein Open Last Admin: 03/03/17 09:59 Dose: 10 ml Zolpidem Tartrate (Ambien) 5 mg PO QPM [facility] - Exam Quality Assessment: supplemental oxygen, DVT prophylaxis General: alert, oriented, cooperative HEENT: Pupils equal, Pupils reactive, EOMI Neck: supple, trachea midline, no JVD Lungs: Normal respiratory effort Cardiovascular: Regular Rate, Irregular Rhythm Abdomen: bowel sounds present, soft, no tenderness, no distension (Female) Exam: Deferred Back Exam: Normal Inspection Extremities: normal pulses Skin: warm Neurological: no new focal deficit Psy/Mental Status: alert, normal affect, normal mood - Problem List & Annotations (1) Acute exacerbation of congestive heart failure SNOMED Code(s): 59600113 Status: Acute Current Visit: Yes Qualifiers: Qualified Code(s): I50.9 - Heart failure, unspecified (2) Hypotension SNOMED Code(s): 40930867 Status: Acute Current Visit: Yes Qualifiers: Qualified Code(s): I95.9 - Hypotension, unspecified (3) Hypoxia SNOMED Code(s): 065956653, 982226264 Status: Acute Current Visit: Yes (4) Pneumonia SNOMED Code(s): 717440547 Status: Acute Current Visit: Yes Qualifiers: Qualified Code(s): J18.1 - Lobar pneumonia, unspecified organism - Problem List Review Problem List Initiated/Reviewed/Updated: Yes - My Orders Last 24 Hours: My Active Orders 03/03/17 21:00 Calcium Carbonate/Vitamin D3 [Calcium Carbonate/Vitamin D 1500 MG-200 Unit] 1 tab PO BID Fluticasone/Salmeterol [Advair Diskus 500-50] 1 puff INH BID Magnesium Oxide 400 mg PO BID Zolpidem [Ambien] 5 mg PO BEDTIME 03/04/17 01:49 Patient Status [ADT] Routine 03/04/17 02:00 Diltiazem 125 mg Sodium Chloride 0.9% [Normal Saline] 100 ml IV TITRATE 03/04/17 06:00 Levothyroxine [Synthroid] 100 mcg PO ACBREAKFAST 03/04/17 07:00 Pantoprazole [ProTONIX] 40 mg PO DAILY@0700 03/04/17 07:34 Sodium Chloride 0.9% [Saline Flush] 10 ml FLUSH ASDIRECTED PRN 03/04/17 08:00 Consult to Physical Therapy [PT Evaluation and Treatment] [CONS] Routine Hydrochlorothiazide 12.5 mg PO QAM Losartan [Cozaar] 50 mg PO QAM Montelukast [Singulair] 10 mg PO QAM amLODIPine [Norvasc] 5 mg PO QAM 03/04/17 09:00 Consult to Occupational Therapy [OT Evaluation and Treatment] [CONS] Routine Enoxaparin [Lovenox] 40 mg SUBCUT DAILY 03/04/17 09:20 Acapella [RT Chest Physiotherapy] [RC] .PRN 03/04/17 10:30 Saccharomyces Boulardii [Florastor] 250 mg PO BID 03/04/17 12:15 Levofloxacin/Dextrose 5%-Water [Levaquin in D5W 750 MG/150 ML] 750 mg Premix Bag 1 bag IV Q24H 03/04/17 12:45 Metoprolol Tartrate [Lopressor] 12.5 mg PO Q8H Potassium Chloride 40 meq PO BID 03/04/17 Lunch Heart Healthy Diet [DIET] 03/05/17 05:00 BASIC METABOLIC PANEL,BMP [CHEM] DAILY CBC WITH AUTO DIFF [HEME] DAILY CRP [C-REACTIVE PROTEIN] [CHEM] DAILY MAGNESIUM [CHEM] DAILY 03/05/17 15:01 CXR [Chest 2V] [CR] Routine 03/06/17 05:00 BASIC METABOLIC PANEL,BMP [CHEM] DAILY CBC WITH AUTO DIFF [HEME] DAILY CRP [C-REACTIVE PROTEIN] [CHEM] DAILY MAGNESIUM [CHEM] DAILY 03/07/17 05:00 BASIC METABOLIC PANEL,BMP [CHEM] DAILY CBC WITH AUTO DIFF [HEME] DAILY CRP [C-REACTIVE PROTEIN] [CHEM] DAILY MAGNESIUM [CHEM] DAILY 03/07/17 07:00 CBC W/O DIFF,HEMOGRAM [HEME] MOTH@0700 03/11/17 07:00 CBC W/O DIFF,HEMOGRAM [HEME] MOTH@0700 03/14/17 07:00 CBC W/O DIFF,HEMOGRAM [HEME] MOTH@0700 03/18/17 07:00 CBC W/O DIFF,HEMOGRAM [HEME] MOTH@0700 03/21/17 07:00 CBC W/O DIFF,HEMOGRAM [HEME] MOTH@0700 - Plan Plan:: Impression: CAP, no recent exposure Hypoxic Febrile Marked elevation of CRP/WBCs History of COPD PAF, transferred to ICU on cardizem gtt Chronic CHF, unknown HTN Plan: IVF Zithromax/Rocephin Nebs Home meds IV Steroids Start Lovenox today, coumadin 03/05/17 DVT/GI prophylaxis Consult SW/PT/OT LOS<96 hours expected, will need Lovenox bridge if not therapeutic. (Is very comfortable with coumadin therapy; required for Hip as well as PE in the past).
[2017-03-04] MEDS ORDERED: Furosemide 40 MG Tab PO PRN (19:36)
[2017-03-04] MEDS ORDERED: Fluticasone/Salmeterol 250-50 MCG Inhalation Powder 14/Diskus INH SCH (21:00)
[2017-03-04] MEDS: Docusate Sodium 100 MG Cap PO SCH (21:25)
[2017-03-04] MEDS: Zolpidem 5 MG Tab PO SCH (21:25)
[2017-03-04] MEDS: Enoxaparin 80 MG/0.8 ML Syringe SUBCUT SCH (21:26)
[2017-03-05] MEDS: Bisacodyl 5 MG Tab PO PRN (05:54)
[2017-03-05] MEDS: Levothyroxine 100 MCG Tab PO SCH (05:54)
[2017-03-05] MEDS: Metoprolol Tartrate 25 MG Tab PO SCH ×3 (05:54→20:51)
[2017-03-05] MEDS: Pantoprazole 40 MG Tab.CR PO SCH (05:59)
[2017-03-05] MEDS: Fluticasone/Salmeterol 500-50 MCG Inhalation Powder 14/Diskus INH SCH ×2 (08:40→20:42)
[2017-03-05] MEDS: amLODIPine 5 MG Tab PO SCH (08:50)
[2017-03-05] MEDS: Docusate Sodium 100 MG Cap PO SCH ×2 (08:50→20:50)
[2017-03-05] MEDS: Saccharomyces Boulardii (Probiotic) 250 MG Cap PO SCH ×2 (08:50→20:49)
[2017-03-05] MEDS: Magnesium Oxide 400 MG Tab PO SCH (08:50)
[2017-03-05] MEDS: Montelukast 10 MG Tab PO SCH (08:50)
[2017-03-05] MEDS: Hydrochlorothiazide 12.5 MG Cap PO SCH (08:51)
[2017-03-05] MEDS: Calcium Carbonate/Vitamin D3 1500 MG-200 Units Tab PO SCH ×2 (08:51→20:50)
[2017-03-05] MEDS: Losartan 25 MG Tab PO SCH (08:51)
[2017-03-05] MEDS: methylPREDNISolone Sodium Succinate 40 MG/1 ML SDV IVPUSH SCH (08:52)
[2017-03-05] MEDS: Enoxaparin 80 MG/0.8 ML Syringe SUBCUT SCH ×2 (08:54→20:54)
--- NOTE | 2017-03-05 09:13 | PCM.PN ---
- General Info Date of Service: 03/05/17 Admission Dx/Problem (Free Text): Admission Diagnosis/Problem Admission Diagnosis/Problem Pneumonia Subjective Update: Follow Up Functional Status: Reports: pain controlled, tolerating diet, ambulating, urinating, new symptoms (She did nto sleep well due to restless leg overnight) - Review of Systems General: Denies: Fever, Fatigue, Chills HEENT: Reports: no symptoms Pulmonary: Reports: cough, sputum. Denies: shortness of breath Cardiovascular: Denies: Chest Pain Gastrointestinal: Denies: Abdominal pain, Nausea, Vomiting Genitourinary: Reports: no symptoms Musculoskeletal: Reports: no symptoms Skin: Denies: mottled, pruritis, rash Neurological: Denies: Dizziness, Difficulty Walking, Weakness, Gait Disturbance Psychiatric: Denies: depression, anxiety, hallucinations Systems Review Comment:: No overnight or acute issues. She feels better. She still coughing up yellowish sputum (brownish in color yesterday). - Patient Data Vitals - most recent: Last Vital Signs Temp 36.7 C 03/05/17 07:39 Pulse 68 03/05/17 07:39 Resp 20 03/05/17 07:39 BP 116/71 03/05/17 08:51 Pulse Ox 95 03/05/17 08:40 Weight - most recent: 74.208 kg I&O - last 24 hours: Intake & Output 03/04/17 03/05/17 03/05/17 22:59 06:59 14:59 Intake Total 2056 175 Output Total 500 Balance 1556 175 Lab Results last 24 hrs: Laboratory Results - last 24 hr 03/05/17 03/05/17 Range/Units 06:07 06:07 WBC 18.22 H (3.98-10.04) K/mm3 RBC 4.29 (3.98-5.22) M/mm3 Hgb 11.3 (11.2-15.7) gm/L Hct 35.0 (34.1-44.9) % MCV 81.6 (79.4-94.8) fl MCH 26.3 (25.6-32.2) pg MCHC 32.3 (32.2-35.5) g/dl RDW Std Deviation 43.5 (36.4-46.3) fL Plt Count 226 (182-369) K/mm3 MPV 11.9 (9.4-12.3) fl Neut % (Auto) 93.5 H (34.0-71.1) % Lymph % (Auto) 2.0 L (19.3-51.7) % [place] % (Auto) 4.0 L (4.7-12.5) % Eos % (Auto) 0 L (0.7-5.8) Baso % (Auto) 0.1 (0.1-1.2) % Neut # (Auto) 17.04 H (1.56-6.13) K/mm3 Lymph # (Auto) 0.37 L (1.18-3.74) K/mm3 [place] # (Auto) 0.73 H (0.24-0.36) K/mm3 Eos # (Auto) 0.00 L (0.04-0.36) K/mm3 Baso # (Auto) 0.01 (0.01-0.08) K/mm3 Manual Slide Review Abnormal smear Sodium 138 (136-145) mEq/L Potassium 4.5 (3.5-5.1) mEq/L Chloride 106 (98-107) mEq/L Carbon Dioxide 24 (21-32) mEq/L Anion Gap 12.5 (5-15) BUN 32 H (7-18) mg/dL Creatinine 0.8 (0.55-1.02) mg/dL Est Cr Clr Drug Dosing 57.27 mL/min Estimated GFR (MDRD) > 60 (>60) mL/min BUN/Creatinine Ratio 40.0 H (14-18) Glucose 162 H (83-115) mg/dL Calcium 8.5 (8.5-10.1) mg/dL Magnesium 2.3 (1.8-2.4) mg/dl C-Reactive Protein 19.0 H* (<1.0) mg/dL [place] Results last 24 hrs: Microbiology 03/03/17 15:00 Streptococcus pneumoniae Antigen (M - Final Urine - Clean Catch Midstream Med Orders - Current: Current Medications Amlodipine Besylate (Norvasc) 5 mg PO QAM [facility] Last Admin: 03/05/17 08:50 Dose: 5 mg Bisacodyl (Dulcolax) 5 mg PO DAILY PRN PRN Reason: Constipation Last Admin: 03/05/17 05:54 Dose: 5 mg Calcium Carbonate (Calcium Carbonate/Vitamin D 1500 Mg-200 Unit) 1 tab PO BID [facility] Last Admin: 03/05/17 08:51 Dose: 1 tab Docusate Sodium (Colace) 100 mg PO BID [facility] Last Admin: 03/05/17 08:50 Dose: 100 mg Enoxaparin Sodium (Lovenox) 70 mg SUBCUT Q12HR [facility] Last Admin: 03/05/17 08:54 Dose: 70 mg Furosemide (Lasix) 40 mg PO DAILY PRN PRN Reason: Edema Hydrochlorothiazide (Hydrochlorothiazide) 12.5 mg PO QAM [facility] Last Admin: 03/05/17 08:51 Dose: 12.5 mg Levofloxacin/Dextrose 750 mg/ (Premix) 150 mls @ 100 mls/hr IV Q24H [facility] Last Admin: 03/04/17 13:01 Dose: 100 mls/hr Levothyroxine Sodium (Synthroid) 100 mcg PO ACBREAKFAST [facility] Last Admin: 03/05/17 05:54 Dose: 100 mcg Losartan Potassium (Cozaar) 50 mg PO QAM [facility] Last Admin: 03/05/17 08:51 Dose: 50 mg Magnesium Oxide (Magnesium Oxide) 400 mg PO BID [facility] Last Admin: 03/05/17 08:50 Dose: 400 mg Methylprednisolone Sodium Succinate (Solu-Medrol) 40 mg IVPUSH DAILY [facility] Last Admin: 03/05/17 08:52 Dose: 40 mg Metoprolol Tartrate (Lopressor) 12.5 mg PO Q8H [facility] Last Admin: 03/05/17 05:54 Dose: 12.5 mg Montelukast Sodium (Singulair) 10 mg PO QAM [facility] Last Admin: 03/05/17 08:50 Dose: 10 mg Pantoprazole Sodium (Protonix) 40 mg PO DAILY@0700 [facility] Last Admin: 03/05/17 05:59 Dose: 40 mg Saccharomyces Boulardii (Florastor) 250 mg PO BID [facility] Last Admin: 03/05/17 08:50 Dose: 250 mg Fluticasone/Salmeterol (Advair Diskus 500-50) 1 puff INH BID [facility] Last Admin: 03/05/17 08:40 Dose: 1 puff Sodium Chloride (Saline Flush) 10 ml FLUSH ASDIRECTED PRN PRN Reason: Keep Vein Open Tramadol HCl (Ultram) 50 mg PO Q4HR PRN PRN Reason: Pain Last Admin: 03/03/17 14:49 Dose: 50 mg Zolpidem Tartrate (Ambien) 5 mg PO BEDTIME [facility] Last Admin: 03/04/17 21:25 Dose: 5 mg Discontinued Medications Albuterol/Ipratropium (Duoneb 3.0-0.5 Mg/3 Ml) 3 ml NEB ONETIME ONE Stop: 03/03/17 09:04 Last Admin: 03/03/17 09:26 Dose: 3 ml Diphenhydramine HCl (Benadryl) 25 mg PO Q6H [facility] Last Admin: 03/04/17 10:41 Dose: Not Given Enoxaparin Sodium (Lovenox) 40 mg SUBCUT DAILY [facility] Last Admin: 03/04/17 08:01 Dose: 40 mg Furosemide (Lasix) 40 mg IVPUSH NOW ONE Stop: 03/03/17 09:05 Last Admin: 03/03/17 09:59 Dose: 40 mg Ceftriaxone Sodium 2 gm/ (Sodium Chloride) 100 mls @ 200 mls/hr IV Q24H [facility] Last Admin: 03/03/17 10:29 Dose: 200 mls/hr Azithromycin 500 mg/ Sodium (Chloride) 250 mls @ 250 mls/hr IV ONETIME ONE Stop: 03/03/17 11:41 Last Admin: 03/03/17 11:01 Dose: 250 mls/hr Azithromycin 500 mg/ Sodium (Chloride) 250 mls @ 250 mls/hr IV Q24H [facility] Last Admin: 03/04/17 08:01 Dose: 250 mls/hr Sodium Chloride (Normal Saline) 1,000 mls @ 75 mls/hr IV ASDIRECTED [facility] Last Admin: 03/04/17 05:30 Dose: 75 mls/hr Diltiazem HCl 125 mg/ Sodium (Chloride) 125 mls @ 5 mls/hr IV TITRATE [facility]; 5 MG /HR PRN Reason: Protocol Last Titration: 03/04/17 11:23 Dose: 0 mg/hr, 0 mls/hr Sodium Chloride (Normal Saline) Confirm Administered Dose 100 mls @ as directed .ROUTE .STK-MED ONE Stop: 03/04/17 02:06 Last Admin: 03/04/17 02:43 Dose: Not Given Ceftriaxone Sodium 2 gm/ (Sodium Chloride) 100 mls @ 200 mls/hr IV Q24H [facility] Last Admin: 03/04/17 10:39 Dose: 200 mls/hr Levothyroxine Sodium (Levothyroxine) 112 mcg PO ACBRK [facility] Alendronate 70mg 70 mg PO Q7D@0600 [facility] Pneumococcal Polyvalent Vaccine (Pneumovax 23) 0.5 ml IM .ONCE ONE Stop: 03/03/17 12:21 Potassium Chloride (Potassium Chloride) 40 meq PO BID [facility] Stop: 03/04/17 21:01 Last Admin: 03/04/17 21:25 Dose: 40 meq Fluticasone/Salmeterol (Advair Diskus 250-50) 1 puff INH BID [facility] Sodium Chloride (Saline Flush) 10 ml FLUSH ASDIRECTED PRN PRN Reason: Keep Vein Open Last Admin: 03/03/17 09:59 Dose: 10 ml Zolpidem Tartrate (Ambien) 5 mg PO QPM [facility] - Exam Quality Assessment: No: supplemental oxygen General: alert, oriented, cooperative, no acute distress HEENT: Pupils equal, Pupils reactive, EOMI, Mucous membr. moist/pink Neck: supple, trachea midline, no JVD, no thyromegaly Lungs: Normal respiratory effort, Decreased breath sounds Cardiovascular: Irregular Rhythm Abdomen: bowel sounds present, soft, no tenderness, no distension (Female) Exam: Deferred Back Exam: Normal Inspection, Decreased Range of Motion Extremities: no edema, normal pulses, no tenderness/swelling, no clubbing, no cyanosis, no calf tenderness Peripheral Pulses: 2+: Dorsalis Pedis (L), Dorsalis Pedis (R) Skin: warm, dry, intact Neurological: no new focal deficit Psy/Mental Status: alert, normal affect, normal mood - Problem List Review Problem List Initiated/Reviewed/Updated: Yes - Plan Plan:: Assessment/Plan: Community Acquired Pneumonia - Mycoplasma Ag Neg - Continue IV Levaquin 750 mg daily - IS/FV use as directed - Check for Strep - Serial CXR Bacteremia - Strep Species x 1 bottle - Staph Coag Negative- likely contamination - Will repeat Blood Culture in AM Paroxysmal Atrial Fibrillation - S/p transferred to ICU on cardizem gtt - Currently on SR - Currently om Metoprolol 12.5 po Q8, will change to BID - Lovenox Sub Q for Stroke Prophylaxis - CHAsDS2-VASc Score: 4 (High risk and carries 4% yearly risk of stroke) - On Warfarin protocol for stroke prophylaxis Resolved: S/p Hypoxic S/p Febrile Chronic ? CHF, unknown-pending 2D echo HTN COPD HLD Constipation Seasonal Allergies/AR Hypothyroidism Plan: She feels much better Still coughing up phlegm Continue current treatment Restoril PRN for Insomnia Aspiration precaution Mucinex 1200 BID first dose now Now on IV Levaquin 750 mg daily DVT/GI prophylaxis Continue RT/PT/OT LOS<96 hours expected, will need Lovenox bridge if not therapeutic. (Is very comfortable with coumadin therapy; required for Hip as well as PE in the past).
--- NOTE | 2017-03-05 09:38 | CR ---
Chest: Two views of the chest were obtained. Comparison: Previous chest x-ray of 03/03/17. Patchy areas of increased density within both lung bases, worse on the right side. Mild increased density appearing more mass-like noted within the left upper lung. Heart size appears within normal limits. Tortuous thoracic aorta is seen. Scoliosis noted within the spine. Impression: 1. Slight decreasing density within the right lung base. Mild increasing density within the left base. Increasing density within the left upper lung is also seen. Findings could represent areas of worsening pneumonia versus scattered areas of increased atelectasis. 2. Area of presumed pneumonia within the right base seen on prior study shows improvement on current exam. Diagnostic code #3
[2017-03-05] MEDS ORDERED: Bisacodyl 10 MG Supp RECTAL ONE (10:28)
[2017-03-05] MEDS: Levothyroxine 112 MCG Tab PO SCH (12:22)
[2017-03-05] MEDS: Levofloxacin/Dextrose 5%-Water 750 MG in Premix Bag 1 BAG IV SCH (12:30)
[2017-03-05] MEDS ORDERED: Metoprolol Tartrate 5 MG/5 ML SDV IVPUSH PRN (15:14)
[2017-03-05] MEDS ORDERED: hydrALAZINE 20 MG/ML SDV IVPUSH PRN (15:14)
[2017-03-05] MEDS: Temazepam 7.5 MG Cap PO PRN (20:50)
[2017-03-05] MEDS: guaiFENesin 600 MG Tab.ER PO SCH (20:51)
[2017-03-06] MEDS: Pantoprazole 40 MG Tab.CR PO SCH (06:34)
[2017-03-06] MEDS: Levothyroxine 100 MCG Tab PO SCH (06:34)
[2017-03-06] MEDS: Fluticasone/Salmeterol 500-50 MCG Inhalation Powder 14/Diskus INH SCH ×2 (08:11→20:27)
[2017-03-06] MEDS: methylPREDNISolone Sodium Succinate 40 MG/1 ML SDV IVPUSH SCH (08:54)
[2017-03-06] MEDS: Saccharomyces Boulardii (Probiotic) 250 MG Cap PO SCH ×2 (08:54→20:49)
[2017-03-06] MEDS: Enoxaparin 80 MG/0.8 ML Syringe SUBCUT SCH ×2 (08:55→20:50)
[2017-03-06] MEDS: guaiFENesin 600 MG Tab.ER PO SCH ×2 (08:55→20:49)
[2017-03-06] MEDS: Calcium Carbonate/Vitamin D3 1500 MG-200 Units Tab PO SCH ×2 (08:55→20:49)
[2017-03-06] MEDS: Docusate Sodium 100 MG Cap PO SCH ×2 (08:56→20:49)
[2017-03-06] MEDS: Montelukast 10 MG Tab PO SCH (08:56)
[2017-03-06] MEDS: amLODIPine 5 MG Tab PO SCH (08:56)
[2017-03-06] MEDS: Hydrochlorothiazide 12.5 MG Cap PO SCH (08:56)
[2017-03-06] MEDS: Losartan 25 MG Tab PO SCH (08:56)
[2017-03-06] MEDS: Rosuvastatin 10 MG Tab PO SCH (08:56)
[2017-03-06] MEDS: Metoprolol Tartrate 25 MG Tab PO SCH ×2 (08:57→20:50)
[2017-03-06] MEDS: Linaclotide [Linzess] 145 MCG PO SCH (08:57)
[2017-03-06] MEDS: Levofloxacin/Dextrose 5%-Water 750 MG in Premix Bag 1 BAG IV SCH (11:39)
[2017-03-06] MEDS: Magnesium Oxide 400 MG Tab PO SCH (12:28)
--- NOTE | 2017-03-06 14:14 | PCM.PN ---
- General Info Date of Service: 03/06/17 Admission Dx/Problem (Free Text): Admission Diagnosis/Problem Admission Diagnosis/Problem Pneumonia Patient is seen this afternoon. Doing very well. No concerns. Denies pain, palpitations, SOB, CP, dizziness, cough is minimal. Afebrile, no n/v/d. She is on coumadin now for paroxysmal afib; has converted to NSR, tele continues with NSR. Functional Status: Reports: pain controlled, tolerating diet, ambulating, urinating. Denies: new symptoms - Review of Systems General: Reports: No Symptoms. Denies: Fever HEENT: Reports: no symptoms Pulmonary: Reports: no symptoms, cough (minimal--improved). Denies: shortness of breath, pleuritic chest pain Cardiovascular: Reports: No Symptoms. Denies: Chest Pain, Palpitations, Dyspnea on Exertion, Edema, Lightheadedness Gastrointestinal: Reports: No symptoms Genitourinary: Reports: no symptoms Musculoskeletal: Reports: no symptoms Skin: Reports: no symptoms Neurological: Reports: No Symptoms Psychiatric: Reports: no symptoms - Patient Data Vitals - most recent: Last Vital Signs Temp 98.6 F 03/06/17 12:24 Pulse 69 03/06/17 12:24 Resp 14 03/06/17 12:24 BP 109/58 L 03/06/17 12:24 Pulse Ox 95 03/06/17 12:24 Weight - most recent: 161 lb 4.8 oz I&O - last 24 hours: Intake & Output 03/05/17 03/06/17 03/06/17 22:59 06:59 14:59 Intake Total 1190 350 200 Output Total 1500 Balance -310 350 200 Lab Results last 24 hrs: Laboratory Results - last 24 hr 03/06/17 03/06/17 03/06/17 Range/Units 06:19 06:19 06:19 WBC 11.97 H (3.98-10.04) K/mm3 RBC 4.64 (3.98-5.22) M/mm3 Hgb 12.1 (11.2-15.7) gm/L Hct 37.5 (34.1-44.9) % MCV 80.8 (79.4-94.8) fl MCH 26.1 (25.6-32.2) pg MCHC 32.3 (32.2-35.5) g/dl RDW Std Deviation 43.3 (36.4-46.3) fL Plt Count 241 (182-369) K/mm3 MPV 11.6 (9.4-12.3) fl Neut % (Auto) 87.0 H (34.0-71.1) % Lymph % (Auto) 4.3 L (19.3-51.7) % [place] % (Auto) 7.9 (4.7-12.5) % Eos % (Auto) 0.1 L (0.7-5.8) Baso % (Auto) 0.1 (0.1-1.2) % Neut # (Auto) 10.41 H (1.56-6.13) K/mm3 Lymph # (Auto) 0.52 L (1.18-3.74) K/mm3 [place] # (Auto) 0.95 H (0.24-0.36) K/mm3 Eos # (Auto) 0.01 L (0.04-0.36) K/mm3 Baso # (Auto) 0.01 (0.01-0.08) K/mm3 Manual Slide Review Abnormal smear PT 10.3 (8.0-13.0) SECONDS INR 0.95 Sodium 142 (136-145) mEq/L Potassium 3.6 (3.5-5.1) mEq/L Chloride 107 (98-107) mEq/L Carbon Dioxide 26 (21-32) mEq/L Anion Gap 12.6 (5-15) BUN 23 H (7-18) mg/dL Creatinine 0.7 (0.55-1.02) mg/dL Est Cr Clr Drug Dosing 65.45 mL/min Estimated GFR (MDRD) > 60 (>60) mL/min BUN/Creatinine Ratio 32.9 H (14-18) Glucose 99 (83-115) mg/dL Calcium 8.5 (8.5-10.1) mg/dL Magnesium 1.7 L (1.8-2.4) mg/dl C-Reactive Protein 8.1 H* (<1.0) mg/dL Med Orders - Current: Current Medications Amlodipine Besylate (Norvasc) 5 mg PO [facility] Last Admin: 03/06/17 08:56 Dose: 5 mg Bisacodyl (Dulcolax) 5 mg PO DAILY PRN PRN Reason: Constipation Last Admin: 03/05/17 05:54 Dose: 5 mg Calcium Carbonate (Calcium Carbonate/Vitamin D 1500 Mg-200 Unit) 1 tab PO BID [facility] Last Admin: 03/06/17 08:55 Dose: 1 tab Docusate Sodium (Colace) 100 mg PO BID [facility] Last Admin: 03/06/17 08:56 Dose: 100 mg Enoxaparin Sodium (Lovenox) 70 mg SUBCUT Q12HR [facility] Last Admin: 03/06/17 08:55 Dose: 70 mg Furosemide (Lasix) 40 mg PO DAILY PRN PRN Reason: Edema Guaifenesin (Mucinex) 1,200 mg PO BID [facility] Last Admin: 03/06/17 08:55 Dose: 1,200 mg Hydralazine HCl (Apresoline) 20 mg IVPUSH Q4H PRN PRN Reason: Hypertension Hydrochlorothiazide (Hydrochlorothiazide) 12.5 mg PO QAM [facility] Last Admin: 03/06/17 08:56 Dose: 12.5 mg Levofloxacin/Dextrose 750 mg/ (Premix) 150 mls @ 100 mls/hr IV Q24H [facility] Last Admin: 03/06/17 11:39 Dose: 100 mls/hr Levothyroxine Sodium (Synthroid) 100 mcg PO ACBREAKFAST [facility] Last Admin: 03/06/17 06:34 Dose: 100 mcg Losartan Potassium (Cozaar) 50 mg PO QAM [facility] Last Admin: 03/06/17 08:56 Dose: 50 mg Magnesium Oxide (Magnesium Oxide) 400 mg PO DAILY [facility] Last Admin: 03/06/17 12:28 Dose: 400 mg Metoprolol Tartrate (Lopressor) 5 mg IVPUSH Q4H PRN PRN Reason: Tachycardia Metoprolol Tartrate (Lopressor) 25 mg PO Q12HR [facility] Last Admin: 03/06/17 08:57 Dose: 25 mg [facility]el[facility]) [facility] Admin: 03/06/17 08:56 Dose: 10 mg Pantoprazole Sodium (Protonix) 40 mg PO DAILY@0700 [facility] Last Admin: 03/06/17 06:34 Dose: 40 mg Linaclotide [Linzess (] 145 Mcg) 0 each PO DAILY [facility] Last Admin: 03/06/17 08:57 Dose: Not Given Prednisone (Prednisone) 40 mg PO DAILY [facility] Stop: 03/09/17 09:01 Prednisone (Prednisone) 30 mg PO DAILY [facility] Stop: 03/12/17 09:01 Prednisone (Prednisone) 20 mg PO DAILY [facility] Stop: 03/15/17 09:01 Prednisone (Prednisone) 10 mg PO DAILY [facility] Stop: 03/18/17 09:01 Rosuvastatin Calcium (Crestor) 5 mg PO DAILY [facility] Last Admin: 03/06/17 08:56 Dose: 5 mg Saccharomyces Boulardii (Florastor) 250 mg PO BID [facility] Last Admin: 03/06/17 08:54 Dose: 250 mg Fluticasone/Salmeterol (Advair Diskus 500-50) 1 puff INH BID [facility] Last Admin: 03/06/17 08:11 Dose: 1 puff Sodium Chloride (Saline Flush) 10 ml FLUSH ASDIRECTED PRN PRN Reason: Keep Vein Open Temazepam (Restoril) 7.5 mg PO BEDTIME PRN PRN Reason: Insomnia Last Admin: 03/05/17 20:50 Dose: 7.5 mg Tramadol HCl (Ultram) 50 mg PO Q4HR PRN PRN Reason: Pain Last Admin: 03/03/17 14:49 Dose: 50 mg Warfarin Sodium (Pharmacy To Dose - Warfarin) 1 dose .XX ASDIRECTED [facility] Warfarin Sodium (Coumadin) 5 mg PO ONETIME@1800 ONE Stop: 03/06/17 18:01 Discontinued Medications Albuterol/Ipratropium (Duoneb 3.0-0.5 Mg/3 Ml) 3 ml NEB ONETIME [facility] Stop: 03/03/17 09:04 Last Admin: 03/03/17 09:26 Dose: 3 ml Bisacodyl (Dulcolax) 10 mg RECTAL ONETIME ONE Stop: 03/05/17 10:29 Last Admin: 03/05/17 12:30 Dose: 10 mg Diphenhydramine HCl (Benadryl) 25 mg PO Q6H [facility] Last Admin: 03/04/17 10:41 Dose: Not Given Enoxaparin Sodium (Lovenox) 40 mg SUBCUT DAILY [facility] Last Admin: 03/04/17 08:01 Dose: 40 mg Furosemide (Lasix) 40 mg IVPUSH NOW ONE Stop: 03/03/17 09:05 Last Admin: 03/03/17 09:59 Dose: 40 mg Ceftriaxone Sodium 2 gm/ (Sodium Chloride) 100 mls @ 200 mls/hr IV Q24H [facility] Last Admin: 03/03/17 10:29 Dose: 200 mls/hr Azithromycin 500 mg/ Sodium (Chloride) 250 mls @ 250 mls/hr IV ONETIME ONE Stop: 03/03/17 11:41 Last Admin: 03/03/17 11:01 Dose: 250 mls/hr Azithromycin 500 mg/ Sodium (Chloride) 250 mls @ 250 mls/hr IV Q24H [facility] Last Admin: 03/04/17 08:01 Dose: 250 mls/hr Sodium Chloride (Normal Saline) 1,000 mls @ 75 mls/hr IV ASDIRECTED [facility] Last Admin: 03/04/17 05:30 Dose: 75 mls/hr Diltiazem HCl 125 mg/ Sodium (Chloride) 125 mls @ 5 mls/hr IV TITRATE [facility]; 5 MG /HR PRN Reason: Protocol Last Titration: 03/04/17 11:23 Dose: 0 mg/hr, 0 mls/hr Sodium Chloride (Normal Saline) Confirm Administered Dose 100 mls @ as directed .ROUTE .STK-MED [facility] Stop: 03/04/17 02:06 Last Admin: 03/04/17 02:43 Dose: Not Given Ceftriaxone Sodium 2 gm/ (Sodium Chloride) 100 mls @ 200 mls/hr IV Q24H [facility] Last Admin: 03/04/17 10:39 Dose: 200 mls/hr Levothyroxine Sodium (Levothyroxine) 112 mcg PO ACBRK [facility] Last Admin: 03/05/17 12:22 Dose: Not Given Magnesium Oxide (Magnesium Oxide) 400 mg PO BID [facility] Last Admin: 03/05/17 08:50 Dose: 400 mg Methylprednisolone Sodium Succinate (Solu-Medrol) 40 mg IVPUSH DAILY [facility] Last Admin: 03/06/17 08:54 Dose: 40 mg Metoprolol Tartrate (Lopressor) 12.5 mg PO Q8H [facility] Last Admin: 03/05/17 20:51 Dose: 12.5 mg Alendronate 70mg 70 mg PO Q7D@0600 [facility] Pneumococcal Polyvalent Vaccine (Pneumovax 23) 0.5 ml IM .ONCE [facility] Stop: 03/03/17 12:21 Potassium Chloride (Potassium Chloride) 40 meq PO BID [facility] Stop: 03/04/17 21:01 Last Admin: 03/04/17 21:25 Dose: 40 meq Fluticasone/Salmeterol (Advair Diskus 250-50) 1 puff INH BID [facility] Sodium Chloride (Saline Flush) 10 ml FLUSH ASDIRECTED PRN PRN Reason: Keep Vein Open Last Admin: 03/03/17 09:59 Dose: 10 ml Warfarin Sodium (Coumadin Sliding Scale) 1 each PO DAILY [facility] Zolpidem Tartrate (Ambien) 5 mg PO QPM [facility] Zolpidem Tartrate (Ambien) 5 mg PO BEDTIME [facility] Last Admin: 03/04/17 21:25 Dose: 5 mg - Exam Quality Assessment: DVT prophylaxis. No: supplemental oxygen General: alert, oriented, cooperative, no acute distress HEENT: Pupils equal, Pupils reactive, EOMI, Mucous membr. moist/pink Neck: supple Lungs: Clear to auscultation, Normal respiratory effort Cardiovascular: Regular Rate, Regular Rhythm Abdomen: bowel sounds present, soft, no tenderness, no distension (Female) Exam: Deferred Extremities: no edema, no calf tenderness Peripheral Pulses: 1+: Dorsalis Pedis (L), Dorsalis Pedis (R) Neurological: no new focal deficit Psy/Mental Status: alert, normal affect, normal mood - Problem List & Annotations (1) Pneumonia SNOMED Code(s): 432479393 Status: Acute Priority: High Current Visit: Yes Qualifiers: Laterality: right Lung location: lower lobe of lung Qualified Code(s): J18.1 - Lobar pneumonia, unspecified organism (2) Paroxysmal a-fib SNOMED Code(s): 275369147 Code(s): I48.0 - PAROXYSMAL ATRIAL FIBRILLATION Status: Resolved Priority : High Current Visit: Yes (3) Hypotension SNOMED Code(s): 77164178 Status: Resolved Priority: High Current Visit: Yes Qualifiers: Qualified Code(s): I95.9 - Hypotension, unspecified (4) Hypoxia SNOMED Code(s): 180851565, 967505814 Status: Resolved Priority: High Current Visit: Yes - Problem List Review Problem List Initiated/Reviewed/Updated: Yes - My Orders Last 24 Hours: My Active Orders 03/06/17 13:00 Magnesium Oxide 400 mg PO DAILY 03/06/17 13:58 CULTURE BLOOD [BC] Stat CULTURE BLOOD [BC] Stat Blood Culture x2 Reflex Set [OM.PC] Stat 03/07/17 09:00 predniSONE 40 mg PO DAILY 03/10/17 09:00 predniSONE 30 mg PO DAILY 03/13/17 09:00 predniSONE 20 mg PO DAILY 03/16/17 09:00 predniSONE 10 mg PO DAILY - Plan Plan:: Assessment/Plan: Community Acquired Pneumonia -S.Pneumonia + - Mycoplasma Ag Neg - Continue IV Levaquin 750 mg daily - IS/FV use as directed - Serial CXR Bacteremia - Strep Species x 1 bottle - Staph Coag Negative- likely contamination - Will repeat Blood Culture today Paroxysmal Atrial Fibrillation - S/p transferred to ICU on cardizem gtt - Currently in SR - Currently on Metoprolol 12.5 po Q8, will change to BID - Lovenox Sub Q for Stroke Prophylaxis, until Coumadin therapeutic- INR 0.95 today - CHAsDS2-VASc Score: 4 (High risk and carries 4% yearly risk of stroke) Resolved: S/p Hypoxic S/p Febrile Chronic ? CHF, unknown-pending 2D echo HTN COPD HLD Constipation Seasonal Allergies/AR Hypothyroidism Plan: She feels much better Still coughing up phlegm Continue current treatment Restoril PRN for Insomnia Aspiration precaution Mucinex 1200 BID first dose now Now on IV Levaquin 750 mg daily DVT/GI prophylaxis Continue RT/PT/OT LOS<96 hours expected, will need Lovenox bridge if not therapeutic. (Is very comfortable with coumadin therapy; required for Hip as well as PE in the past) and pending repeat BC.
[2017-03-06] MEDS: traMADol 50 MG Tab PO PRN ×2 (15:13→21:02)
[2017-03-06] MEDS ORDERED: Warfarin Sliding Scale PO SCH (18:00)
[2017-03-06] MEDS ORDERED: Warfarin 5 MG Tab PO ONE (18:00)
[2017-03-06] MEDS: Temazepam 7.5 MG Cap PO PRN (21:02)
[2017-03-07] MEDS: Levothyroxine 100 MCG Tab PO SCH (06:14)
[2017-03-07] MEDS: Pantoprazole 40 MG Tab.CR PO SCH (06:14)
[2017-03-07] MEDS: Fluticasone/Salmeterol 500-50 MCG Inhalation Powder 14/Diskus INH SCH ×2 (08:14→20:24)
[2017-03-07] MEDS: Montelukast 10 MG Tab PO SCH (09:13)
[2017-03-07] MEDS: guaiFENesin 600 MG Tab.ER PO SCH ×2 (09:13→20:11)
[2017-03-07] MEDS: Magnesium Oxide 400 MG Tab PO SCH (09:13)
[2017-03-07] MEDS: Saccharomyces Boulardii (Probiotic) 250 MG Cap PO SCH ×2 (09:13→20:10)
[2017-03-07] MEDS: Calcium Carbonate/Vitamin D3 1500 MG-200 Units Tab PO SCH ×2 (09:13→20:11)
[2017-03-07] MEDS: Docusate Sodium 100 MG Cap PO SCH ×2 (09:13→20:11)
[2017-03-07] MEDS: Hydrochlorothiazide 12.5 MG Cap PO SCH (09:14)
[2017-03-07] MEDS: Rosuvastatin 10 MG Tab PO SCH (09:14)
[2017-03-07] MEDS: Metoprolol Tartrate 25 MG Tab PO SCH ×2 (09:14→20:11)
[2017-03-07] MEDS: predniSONE 20 MG Tab PO SCH (09:14)
[2017-03-07] MEDS: Losartan 25 MG Tab PO SCH (09:14)
[2017-03-07] MEDS: amLODIPine 5 MG Tab PO SCH (09:15)
[2017-03-07] MEDS: Enoxaparin 80 MG/0.8 ML Syringe SUBCUT SCH ×2 (09:16→20:12)
[2017-03-07] MEDS: Linaclotide [Linzess] 145 MCG PO SCH (09:16)
--- NOTE | 2017-03-07 10:31 | PCM.PN ---
- General Info Date of Service: 03/07/17 Admission Dx/Problem (Free Text): Admission Diagnosis/Problem Admission Diagnosis/Problem Pneumonia Patient is seen this morning; ambulating in the hallway with PT. Doing very well. No concerns. Denies pain, palpitations, SOB, CP, dizziness, cough is minimal. Afebrile, no n/v/d. She is on coumadin now for paroxysmal afib; has converted to NSR, tele continues with NSR. Awaiting repeat BC prior to DC home. Functional Status: Reports: pain controlled - Review of Systems General: Reports: No Symptoms. Denies: Weakness (resolving) HEENT: Reports: no symptoms Pulmonary: Reports: cough (minimal). Denies: shortness of breath (resolved), sputum (nonproductive; sputum is clear) Cardiovascular: Reports: No Symptoms Gastrointestinal: Reports: No symptoms Genitourinary: Reports: no symptoms Neurological: Reports: No Symptoms Psychiatric: Reports: no symptoms - Patient Data Vitals - most recent: Last Vital Signs Temp 98.2 F 03/07/17 07:42 Pulse 61 03/07/17 09:14 Resp 14 03/07/17 07:42 BP 125/62 03/07/17 09:14 Pulse Ox 95 03/07/17 08:14 Weight - most recent: 159 lb 8 oz I&O - last 24 hours: Intake & Output 03/06/17 03/07/17 03/07/17 22:59 06:59 14:59 Intake Total 950 550 420 Balance 950 550 420 Lab Results last 24 hrs: Laboratory Results - last 24 hr 03/07/17 03/07/17 03/07/17 Range/Units 06:25 06:30 06:30 WBC 7.01 (3.98-10.04) K/mm3 RBC 4.67 (3.98-5.22) M/mm3 Hgb 12.2 (11.2-15.7) gm/L Hct 37.6 (34.1-44.9) % MCV 80.5 (79.4-94.8) fl MCH 26.1 (25.6-32.2) pg MCHC 32.4 (32.2-35.5) g/dl RDW Std Deviation 42.7 (36.4-46.3) fL Plt Count 257 (182-369) K/mm3 MPV 11.4 (9.4-12.3) fl Neut % (Auto) 75.6 H (34.0-71.1) % Lymph % (Auto) 10.6 L (19.3-51.7) % [place] % (Auto) 11.8 (4.7-12.5) % Eos % (Auto) 0.9 (0.7-5.8) Baso % (Auto) 0.0 L (0.1-1.2) % Neut # (Auto) 5.30 (1.56-6.13) K/mm3 Lymph # (Auto) 0.74 L (1.18-3.74) K/mm3 [place] # (Auto) 0.83 H (0.24-0.36) K/mm3 Eos # (Auto) 0.06 (0.04-0.36) K/mm3 Baso # (Auto) 0.00 L (0.01-0.08) K/mm3 PT 10.6 (8.0-13.0) SECONDS INR 0.97 Sodium 141 (136-145) mEq/L Potassium 3.6 (3.5-5.1) mEq/L Chloride 105 (98-107) mEq/L Carbon Dioxide 26 (21-32) mEq/L Anion Gap 13.6 (5-15) BUN 21 H (7-18) mg/dL Creatinine 0.7 (0.55-1.02) mg/dL Est Cr Clr Drug Dosing 65.45 mL/min Estimated GFR (MDRD) > 60 (>60) mL/min BUN/Creatinine Ratio 30.0 H (14-18) Glucose 83 (83-115) mg/dL Calcium 8.3 L (8.5-10.1) mg/dL Magnesium 1.7 L (1.8-2.4) mg/dl C-Reactive Protein 3.9 H* (<1.0) mg/dL Med Orders - Current: Current Medications Amlodipine Besylate (Norvasc) 5 mg PO QAM [facility] Last Admin: 03/07/17 09:15 Dose: Not Given Bisacodyl (Dulcolax) 5 mg PO DAILY PRN PRN Reason: Constipation Last Admin: 03/05/17 05:54 Dose: 5 mg Calcium Carbonate (Calcium Carbonate/Vitamin D 1500 Mg-200 Unit) 1 tab PO BID [facility] Last Admin: 03/07/17 09:13 Dose: 1 tab Docusate Sodium (Colace) 100 mg PO BID [facility] Last Admin: 03/07/17 09:13 Dose: 100 mg Enoxaparin Sodium (Lovenox) 70 mg SUBCUT Q12HR [facility] Last Admin: 03/07/17 09:16 Dose: 70 mg Furosemide (Lasix) 40 mg PO DAILY PRN PRN Reason: Edema Guaifenesin (Mucinex) 1,200 mg PO BID [facility] Last Admin: 03/07/17 09:13 Dose: 1,200 mg Hydralazine HCl (Apresoline) 20 mg IVPUSH Q4H PRN PRN Reason: Hypertension Hydrochlorothiazide (Hydrochlorothiazide) 12.5 mg PO QAM [facility] Last Admin: 03/07/17 09:14 Dose: 12.5 mg Levofloxacin/Dextrose 750 mg/ (Premix) 150 mls @ 100 mls/hr IV Q24H [facility] Last Admin: 03/06/17 11:39 Dose: 100 mls/hr Levothyroxine Sodium (Synthroid) 100 mcg PO ACBREAKFAST [facility] Last Admin: 03/07/17 06:14 Dose: 100 mcg Losartan Potassium (Cozaar) [facility] [place] Admin: 03/07/17 09:14 Dose: 25 mg Magnesium Oxide (Magnesium Oxide) 400 mg PO DAILY [facility] Last Admin: 03/07/17 09:13 Dose: 400 mg Metoprolol Tartrate (Lopressor) 5 mg IVPUSH Q4H PRN PRN Reason: Tachycardia Metoprolol Tartrate (Lopressor) 25 mg PO Q12HR [facility] Last Admin: 03/07/17 09:14 Dose: 25 mg Montelukast Sodium (Singulair) 10 mg PO QAM [facility] Last Admin: 03/07/17 09:13 Dose: 10 mg Pantoprazole Sodium (Protonix) 40 mg PO DAILY@0700 [facility] Last Admin: 03/07/17 06:14 Dose: 40 mg Linaclotide [Linzess (] 145 Mcg) 0 each PO DAILY [facility] Last Admin: 03/07/17 09:16 Dose: Not Given Prednisone (Prednisone) 40 mg PO DAILY [facility] Stop: 03/09/17 09:01 Last Admin: 03/07/17 09:14 Dose: 40 mg Prednisone (Prednisone) 30 mg PO DAILY [facility] Stop: 03/12/17 09:01 Prednisone (Prednisone) 20 mg PO DAILY [facility] Stop: 03/15/17 09:01 Prednisone (Prednisone) 10 mg PO DAILY [facility] Stop: 03/18/17 09:01 Rosuvastatin Calcium (Crestor) 5 mg PO DAILY [facility] Last Admin: 03/07/17 09:14 Dose: 5 mg Saccharomyces Boulardii (Florastor) 250 mg PO BID [facility] Last Admin: 03/07/17 09:13 Dose: 250 mg Fluticasone/Salmeterol (Advair Diskus 500-50) 1 puff INH BID [facility] Last Admin: 03/07/17 08:14 Dose: 1 puff Sodium Chloride (Saline Flush) 10 ml FLUSH ASDIRECTED PRN PRN Reason: Keep Vein Open Temazepam (Restoril) 7.5 mg PO BEDTIME PRN PRN Reason: Insomnia Last Admin: 03/06/17 21:02 Dose: 7.5 mg Tramadol HCl (Ultram) 50 mg PO Q4HR PRN PRN Reason: Pain Last Admin: 03/06/17 21:02 Dose: 50 mg Warfarin Sodium (Pharmacy To Dose - Warfarin) 1 dose .XX ASDIRECTED [facility] Warfarin Sodium (Coumadin) 5 mg PO ONETIME@1800 ONE Stop: 03/07/17 18:01 Discontinued Medications Albuterol/Ipratropium (Duoneb 3.0-0.5 Mg/3 Ml) 3 ml NEB ONETIME ONE Stop: 03/03/17 09:04 Last Admin: 03/03/17 09:26 Dose: 3 ml Bisacodyl (Dulcolax) 10 mg RECTAL ONETIME ONE Stop: 03/05/17 10:29 Last Admin: 03/05/17 12:30 Dose: 10 mg Diphenhydramine HCl (Benadryl) 25 mg PO Q6H [facility] Last Admin: 03/04/17 10:41 Dose: Not Given Enoxaparin Sodium (Lovenox) 40 mg SUBCUT DAILY [facility] Last Admin: 03/04/17 08:01 Dose: 40 mg Furosemide (Lasix) 40 mg IVPUSH NOW ONE Stop: 03/03/17 09:05 Last Admin: 03/03/17 09:59 Dose: 40 mg Ceftriaxone Sodium 2 gm/ (Sodium Chloride) 100 mls @ 200 mls/hr IV Q24H [facility] Last Admin: 03/03/17 10:29 Dose: 200 mls/hr Azithromycin 500 mg/ Sodium (Chloride) 250 mls @ 250 mls/hr IV ONETIME ONE Stop: 03/03/17 11:41 Last Admin: 03/03/17 11:01 Dose: 250 mls/hr Azithromycin 500 mg/ Sodium (Chloride) 250 mls @ 250 mls/hr IV Q24H [facility] Last Admin: 03/04/17 08:01 Dose: 250 mls/hr Sodium Chloride (Normal Saline) 1,000 mls @ 75 mls/hr IV ASDIRECTED [facility] Last Admin: 03/04/17 05:30 Dose: 75 mls/hr Diltiazem HCl 125 mg/ Sodium (Chloride) 125 mls @ 5 mls/hr IV TITRATE JUSTICE; 5 MG /HR PRN Reason: Protocol Last Titration: 03/04/17 11:23 Dose: 0 mg/hr, 0 mls/hr Sodium Chloride (Normal Saline) Confirm Administered Dose 100 mls @ as directed .ROUTE .STK-MED ONE Stop: 03/04/17 02:06 Last Admin: 03/04/17 02:43 Dose: Not Given Ceftriaxone Sodium 2 gm/ (Sodium Chloride) 100 mls @ 200 mls/hr IV Q24H [facility] Last Admin: 03/04/17 10:39 Dose: 200 mls/hr Levothyroxine Sodium (Levothyroxine) 112 mcg PO ACBRK [facility] Last Admin: 03/05/17 12:22 Dose: Not Given Magnesium Oxide (Magnesium Oxide) 400 mg PO BID [facility] Last Admin: 03/05/17 08:50 Dose: 400 mg Methylprednisolone Sodium Succinate (Solu-Medrol) 40 mg IVPUSH DAILY [facility] Last Admin: 03/06/17 08:54 Dose: 40 mg Metoprolol Tartrate (Lopressor) 12.5 mg PO Q8H [facility] Last Admin: 03/05/17 20:51 Dose: 12.5 mg Alendronate 70mg 70 mg PO Q7D@0600 [facility] Pneumococcal Polyvalent Vaccine (Pneumovax 23) 0.5 ml IM .ONCE ONE Stop: 03/03/17 12:21 Potassium Chloride (Potassium Chloride) 40 meq PO BID [facility] Stop: 03/04/17 21:01 Last Admin: 03/04/17 21:25 Dose: 40 meq Fluticasone/Salmeterol (Advair Diskus 250-50) 1 puff INH BID [facility] Sodium Chloride (Saline Flush) 10 ml FLUSH ASDIRECTED PRN PRN Reason: Keep Vein Open Last Admin: 03/03/17 09:59 Dose: 10 ml Warfarin Sodium (Coumadin Sliding Scale) 1 each PO DAILY [facility] Warfarin Sodium (Coumadin) 5 mg PO ONETIME@1800 ONE Stop: 03/06/17 18:01 Last Admin: 03/06/17 17:51 Dose: 5 mg Zolpidem Tartrate (Ambien) 5 mg PO QPM [facility] Zolpidem Tartrate (Ambien) 5 mg PO BEDTIME [facility] Last Admin: 03/04/17 21:25 Dose: 5 mg - Exam Quality Assessment: DVT prophylaxis General: alert, oriented, cooperative, no acute distress HEENT: Pupils equal, Pupils reactive, EOMI, Mucous membr. moist/pink Neck: supple Lungs: Clear to auscultation, Normal respiratory effort, Wheezing (scattered on expiration; much improved) Cardiovascular: Regular Rate, Regular Rhythm Abdomen: bowel sounds present, soft, no tenderness, no distension (Female) Exam: Deferred Back Exam: Normal Inspection Extremities: no edema, no calf tenderness Peripheral Pulses: 1+: Dorsalis Pedis (L), Dorsalis Pedis (R) Skin: warm, dry, intact Neurological: no new focal deficit Psy/Mental Status: alert, normal affect, normal mood - Problem List & Annotations (1) Pneumonia SNOMED Code(s): 162442998 Status: Acute Priority: High Current Visit: Yes Qualifiers: Laterality: right Lung location: lower lobe of lung Qualified Code(s): J18.1 - Lobar pneumonia, unspecified organism (2) Paroxysmal a-fib SNOMED Code(s): 729230318 Code(s): I48.0 - PAROXYSMAL ATRIAL FIBRILLATION Status: Resolved Priority : High Current Visit: Yes (3) Hypotension SNOMED Code(s): 65280060 Status: Resolved Priority: High Current Visit: Yes Qualifiers: Qualified Code(s): I95.9 - Hypotension, unspecified (4) Hypoxia SNOMED Code(s): 837273833, 856867956 Status: Resolved Priority: High Current Visit: Yes - Problem List Review Problem List Initiated/Reviewed/Updated: Yes - My Orders Last 24 Hours: My Active Orders 03/06/17 13:00 Magnesium Oxide 400 mg PO DAILY 03/06/17 13:58 Blood Culture x2 Reflex Set [OM.PC] Stat 03/06/17 14:15 CULTURE BLOOD [BC] Stat 03/06/17 14:30 CULTURE BLOOD [BC] Stat 03/07/17 06:24 Communication Order [RC] ASDIRECTED 03/07/17 09:00 predniSONE 40 mg PO DAILY 03/10/17 09:00 predniSONE 30 mg PO DAILY 03/13/17 09:00 predniSONE 20 mg PO DAILY 03/16/17 09:00 predniSONE 10 mg PO DAILY - Plan Plan:: Assessment/Plan: Community Acquired Pneumonia -S.Pneumonia + - Mycoplasma Ag Neg - Continue IV Levaquin 750 mg daily - IS/FV use as directed; RT to continue Bacteremia - Strep Species x 1 bottle - Staph Coag Negative- likely contamination - Will repeat Blood Culture--results pending---pending normal BC for discharge Paroxysmal Atrial Fibrillation-- now in [facility]- rates in the 70's. - S/p transferred to ICU on cardizem gtt - Currently in [facility] - Currently on Metoprolol 12.5 po Q8, will change to BID - Lovenox Sub Q for Stroke Prophylaxis, until Coumadin therapeutic- INR 0.97 today - CHAsDS2-VASc Score: 4 (High risk and carries 4% yearly risk of stroke)-- decision to start Coumadin (has been on in the past) Resolved: S/p Hypoxic S/p Febrile Chronic ? CHF-- echo obtained: EF of 50-55%; rt ventricle mildly enlarged, mild aortic sclerosis HTN COPD HLD Constipation Seasonal Allergies/AR Hypothyroidism Plan: Continue current treatment Restoril PRN for Insomnia Aspiration precaution Mucinex 1200 BID first dose now Now on IV Levaquin 750 mg daily DVT/GI prophylaxis Continue RT/PT/OT LOS<96 hours expected, will need Lovenox bridge if not therapeutic. (Is very comfortable with coumadin therapy; required for Hip as well as PE in the past) and pending repeat BC.
[2017-03-07] MEDS: Levofloxacin/Dextrose 5%-Water 750 MG in Premix Bag 1 BAG IV SCH (12:21)
[2017-03-07] MEDS ORDERED: Pneumococcal 13-Valent Conjugate Vaccine 0.5 ML Syringe IM ONE (13:15)
[2017-03-07] MEDS: traMADol 50 MG Tab PO PRN ×2 (13:58→20:11)
[2017-03-07] MEDS ORDERED: Warfarin 5 MG Tab PO ONE (18:00)
[2017-03-07] MEDS: Temazepam 7.5 MG Cap PO PRN (20:11)
[2017-03-08] MEDS: Levothyroxine 100 MCG Tab PO SCH (06:29)
[2017-03-08] MEDS: Pantoprazole 40 MG Tab.CR PO SCH (06:29)
[2017-03-08] MEDS: traMADol 50 MG Tab PO PRN (06:29)
[2017-03-08] MEDS: Saccharomyces Boulardii (Probiotic) 250 MG Cap PO SCH (08:02)
[2017-03-08] MEDS: Enoxaparin 80 MG/0.8 ML Syringe SUBCUT SCH (08:02)
[2017-03-08] MEDS: Calcium Carbonate/Vitamin D3 1500 MG-200 Units Tab PO SCH (08:02)
[2017-03-08] MEDS: Losartan 25 MG Tab PO SCH (08:03)
[2017-03-08] MEDS: amLODIPine 5 MG Tab PO SCH (08:03)
[2017-03-08] MEDS: predniSONE 20 MG Tab PO SCH (08:03)
[2017-03-08] MEDS: guaiFENesin 600 MG Tab.ER PO SCH (08:04)
[2017-03-08] MEDS: Montelukast 10 MG Tab PO SCH (08:04)
[2017-03-08] MEDS: Docusate Sodium 100 MG Cap PO SCH (08:04)
[2017-03-08] MEDS: Metoprolol Tartrate 25 MG Tab PO SCH (08:04)
[2017-03-08] MEDS: Magnesium Oxide 400 MG Tab PO SCH (08:04)
[2017-03-08] MEDS: Hydrochlorothiazide 12.5 MG Cap PO SCH (08:05)
[2017-03-08] MEDS: Rosuvastatin 10 MG Tab PO SCH (08:05)
[2017-03-08 08:07] VITALS: BP 153/64
[2017-03-08] MEDS: Linaclotide [Linzess] 145 MCG PO SCH (08:54)
[2017-03-08] MEDS: Fluticasone/Salmeterol 500-50 MCG Inhalation Powder 14/Diskus INH SCH (09:01)
--- NOTE | 2017-03-08 09:02 | PCM.DCSUM1 ---
Discharge Summary - Hospital Course Free Text/Narrative:: 76 year old female with history of COPD, presents shortness of breath that is associated with minimal cough. She had pleritic chest pain, and a low grade fever. Difficulty sleeping was noted without orthopnea. On arrival to the ED, the patient was hypoxic, after 4 liters via NC, the saturation increased to 91% . Vital signs on initial evaluation in the ED: HR 102, RR 18, BP 93/46, pulse ox 91%. CXR revealed right middle lobe pneumonia. Hospitalist service is consulted for admission for pneumonia. She is admitted, hydrated with IVF and started on IV abx of Rocephin and Zithromax initially, then switched to Levaquin. Repeat CXR showed improvement to RLL PNA. Strep pneumonia returned positive. BC initially were positive for staphylococcus coag negative streptococcus species. Repeat BC were negative. She was weaned from supplemental with good oxygen saturations on RA. Cough is improved, now nonproductive and minimal. Energy is improved, she continues to work with PT. She is afebrile. CXR on day of discharge with improving areas of pneumonia noted. WBC is WNL on day of discharge; CRP is much improved. Renal function WNL, electrolytes WNL on day of discharge. She had documented paroxysmal atrial fib with RVR during her stay which converted to NSR with cardizem drip. She is now rate controlled and remains in NSR with repeat EKGs and no further arrhythmias on telemetry. She is started on Coumadin with lovenox bridge. INR on day of discharge is 1.04. She will have recheck INR on Saturday with PCP, JUSTIN Mora and follow up appointment in 1 week. - Discharge Data Discharge Date: 03/08/17 (admit date 03/03/17) Discharge Disposition: Home, Self-Care 01 Condition: Good - Discharge Diagnosis/Problem(s) (1) Pneumonia SNOMED Code(s): 546941712 Status: Acute Priority: High Current Visit: Yes Qualifiers: Laterality: right Lung location: lower lobe of lung (2) Paroxysmal a-fib SNOMED Code(s): 474481017 ICD Code: I48.0 - PAROXYSMAL ATRIAL FIBRILLATION Status: Resolved Priority: High Current Visit: Yes (3) Hypotension SNOMED Code(s): 52855021 Status: Resolved Priority: High Current Visit: Yes (4) Hypoxia SNOMED Code(s): 808580047, 903464111 Status: Resolved Priority: High Current Visit: Yes - Patient Summary/Data Operative Procedure(s) Performed: None Complications: None Consults: Consultations 03/03/17 14:17 Consult to Case Management [CONS] Routine 03/04/17 08:00 Consult to Physical Therapy [PT Evaluation and Treatment] [CONS] Routine 03/04/17 09:00 Consult to Occupational Therapy [OT Evaluation and Treatment] [CONS] Routine Labs Pending at D/C: None Recommended Follow-up Testing/Procedures: INR recheck on Saturday03/11/17 with results to PCP, Zuleyma Birmingham Recheck with PCP within 1 week of discharge Planned Operative Procedure(s) after DC: None Hospital Course: As above - Patient Instructions Diet: Heart Healthy Diet Activity: As Tolerated (continue PT as outpatinet) Showering/Bathing: May Shower Notify Provider of: Fever, Increased Pain, Swelling and Redness, Nausea and/or Vomiting (palpitations, chest pain, shortness of breath, return or worsening of cough) - Discharge Plan Prescriptions/Med Rec: Metoprolol Tartrate [Lopressor] 12.5 mg PO Q12HR #30 tablet Docusate Sodium [Colace] 100 mg PO BID #30 cap Levofloxacin [Levaquin] 750 mg PO DAILY #7 tablet Prednisone [IJD: Prednisone] 10 mg PO DAILY #9 tab Warfarin [Coumadin] 5 mg PO DAILY #30 tablet Home Medications: Home Meds Albuterol [Ventolin HFA] 2 puff INH Q4HR PRN 03/03/17 [History] Bisacodyl [Dulcolax] 5 mg PO DAILY PRN 03/03/17 [History] Calcium Carbonate/Vitamin D3 [Calcium 500 + Vit D 400] 2 tab PO BID 03/03/17 [ History] Clemastine Fumarate 1 tab PO BID 03/03/17 [History] Fluticasone/Salmeterol [Advair Diskus 500-50] 1 puff INH BID 03/03/17 [History] Furosemide [Lasix] 40 mg PO ASDIRECTED PRN 03/03/17 [History] Ibuprofen 600 mg PO TID 03/03/17 [History] Levothyroxine [Synthroid] 100 mcg PO QAM 03/03/17 [History] Magnesium Oxide 500 mg PO BID 03/03/17 [History] Montelukast [Singulair] 10 mg PO QAM 03/03/17 [History] Omeprazole 20 mg PO QAM 03/03/17 [History] Valsartan/Hydrochlorothiazide [Valsartan-Hctz 80-12.5 mg Tab] 1 tab PO QAM 03/03 [History] Zolpidem [Ambien] 5 mg PO QPM 03/03/17 [History] amLODIPine [Norvasc] 5 mg PO QAM 03/03/17 [History] traMADol [Ultram] 50 mg PO Q4HR PRN 03/03/17 [History] Linaclotide [Linzess] 145 mcg PO DAILY 03/05/17 [History] Rosuvastatin [Crestor] 5 mg PO DAILY 03/05/17 [History] Docusate Sodium [Colace] 100 mg PO BID #30 cap 03/08/17 [Rx] Levofloxacin [Levaquin] 750 mg PO DAILY #7 tablet 03/08/17 [Rx] Metoprolol Tartrate [Lopressor] 12.5 mg PO Q12HR #30 tablet 03/08/17 [Rx] Prednisone [IJD: Prednisone] 10 mg PO DAILY #9 tab 03/08/17 [Rx] Warfarin [Coumadin] 5 mg PO DAILY #30 tablet 03/08/17 [Rx] Patient Handouts: Warfarin: What You Need to Know, Heart Failure, [id number] , Community-Acquired Pneumonia, Adult, [id number] Forms: ED Department Discharge Referrals: Zuleyma Birmingham NP [Primary Care Provider] - - Discharge Summary/Plan Comment DC Time >30 min.: Yes (40 minutes) - General Info Date of Service: 03/08/17 Admission Dx/Problem (Free Text: Admission Diagnosis/Problem Admission Diagnosis/Problem Pneumonia Patient is seen this morning. Doing very well. No concerns. Denies pain, palpitations, SOB, CP, dizziness, cough is minimal. Afebrile, no n/v/d. She is on coumadin now for paroxysmal afib; has converted to NSR, tele continues with NSR. Functional Status: Reports: pain controlled, tolerating diet, ambulating, urinating. Denies: new symptoms - Review of Systems General: Reports: No Symptoms, Weakness (improved to resolved). Denies: Fever HEENT: Reports: no symptoms Pulmonary: Reports: cough (minimal to much improved). Denies: shortness of breath Cardiovascular: Reports: No Symptoms. Denies: Chest Pain, Palpitations, Dyspnea on Exertion, Edema, Lightheadedness Gastrointestinal: Reports: No symptoms Genitourinary: Reports: no symptoms Musculoskeletal: Reports: no symptoms Skin: Reports: no symptoms Neurological: Reports: No Symptoms Psychiatric: Reports: no symptoms - Patient Data Vitals - Most Recent: Last Vital Signs Temp 98.4 F 03/08/17 08:01 Pulse 55 L 03/08/17 08:04 Resp 16 03/08/17 08:01 BP 153/64 H 03/08/17 08:04 Pulse Ox 91 L 03/08/17 08:01 Weight - Most Recent: 158 lb 8 oz I&O - Last 24 hours: Intake & Output 03/07/17 03/08/17 03/08/17 22:59 06:59 14:59 Intake Total 1160 200 Output Total 750 Balance 410 200 Lab Results - Last 24 hrs: Laboratory Results - last 24 hr 03/08/17 03/08/17 03/08/17 Range/Units 06:02 06:02 06:02 WBC 7.01 (3.98-10.04) K/mm3 RBC 4.92 (3.98-5.22) M/mm3 Hgb 12.6 (11.2-15.7) gm/L Hct 39.3 (34.1-44.9) % MCV 79.9 (79.4-94.8) fl MCH 25.6 (25.6-32.2) pg MCHC 32.1 L (32.2-35.5) g/dl RDW Std Deviation 42.7 (36.4-46.3) fL Plt Count 204 (182-369) K/mm3 MPV 11.9 (9.4-12.3) fl Neut % (Auto) 70.3 (34.0-71.1) % Lymph % (Auto) 13.6 L (19.3-51.7) % Tate % (Auto) 11.8 (4.7-12.5) % Eos % (Auto) 1.1 (0.7-5.8) Baso % (Auto) 0.1 (0.1-1.2) % Neut # (Auto) 4.92 (1.56-6.13) K/mm3 Lymph # (Auto) 0.95 L (1.18-3.74) K/mm3 Tate # (Auto) 0.83 H (0.24-0.36) K/mm3 Eos # (Auto) 0.08 (0.04-0.36) K/mm3 Baso # (Auto) 0.01 (0.01-0.08) K/mm3 PT 11.4 (8.0-13.0) SECONDS INR 1.04 Sodium 141 (136-145) mEq/L Potassium 3.9 (3.5-5.1) mEq/L Chloride 105 (98-107) mEq/L Carbon Dioxide 28 (21-32) mEq/L Anion Gap 11.9 (5-15) BUN 18 (7-18) mg/dL Creatinine 0.7 (0.55-1.02) mg/dL Est Cr Clr Drug Dosing 65.45 mL/min Estimated GFR (MDRD) > 60 (>60) mL/min BUN/Creatinine Ratio 25.7 H (14-18) Glucose 82 L (83-115) mg/dL Calcium 8.2 L (8.5-10.1) mg/dL Magnesium 1.7 L (1.8-2.4) mg/dl JEM Results - Last 24 hrs: Microbiology 03/06/17 14:15 Aerobic Blood Culture - Preliminary Blood - Venous NO GROWTH AFTER 1 DAY Anaerobic Blood Culture - Preliminary NO GROWTH AFTER 1 DAY 03/06/17 14:30 Aerobic Blood Culture - Preliminary Blood - Venous - Lab Draw NO GROWTH AFTER 1 DAY Anaerobic Blood Culture - Preliminary NO GROWTH AFTER 1 DAY Med Orders - Current: Current Medications Amlodipine Besylate (Norvasc) 5 mg PO QAM [facility] Last Admin: 03/08/17 08:03 Dose: 5 mg Bisacodyl (Dulcolax) 5 mg PO DAILY PRN PRN Reason: Constipation Last Admin: 03/05/17 05:54 Dose: 5 mg Calcium Carbonate (Calcium Carbonate/Vitamin D 1500 Mg-200 Unit) 1 tab PO BID [facility] Last Admin: 03/08/17 08:02 Dose: 1 tab Docusate Sodium (Colace) 100 mg PO BID [facility] Last Admin: 03/08/17 08:04 Dose: 100 mg Enoxaparin Sodium (Lovenox) 70 mg SUBCUT Q12HR [facility] Last Admin: 03/08/17 08:02 Dose: 70 mg Furosemide (Lasix) 40 mg PO DAILY PRN PRN Reason: Edema Guaifenesin (Mucinex) 1,200 mg PO BID [facility] Last Admin: 03/08/17 08:04 Dose: 1,200 mg Hydralazine HCl (Apresoline) 20 mg IVPUSH Q4H PRN PRN Reason: Hypertension Hydrochlorothiazide (Hydrochlorothiazide) 12.5 mg PO QAM [facility] Last Admin: 03/08/17 08:05 Dose: 12.5 mg Levofloxacin/Dextrose 750 mg/ (Premix) 150 mls @ 100 mls/hr IV Q24H [facility] Last Admin: 03/07/17 12:21 Dose: 100 mls/hr Levothyroxine Sodium (Synthroid) 100 mcg PO ACBREAKFAST [facility] Last Admin: 03/08/17 06:29 Dose: 100 mcg Losartan Potassium (Cozaar) 50 mg PO QAM [facility] Last Admin: 03/08/17 08:03 Dose: 50 mg Magnesium Oxide (Magnesium Oxide) 400 mg PO DAILY [facility] Last Admin: 03/08/17 08:04 Dose: 400 mg Metoprolol Tartrate (Lopressor) 5 mg IVPUSH Q4H PRN PRN Reason: Tachycardia Metoprolol Tartrate (Lopressor) 25 mg PO Q12HR [facility] Last Admin: 03/08/17 08:04 Dose: 25 mg [facility]elukast [facility]) [facility] Admin: 03/08/17 08:04 Dose: 10 mg Pantoprazole Sodium (Protonix) 40 mg PO DAILY@0700 [facility] Last Admin: 03/08/17 06:29 Dose: 40 mg Linaclotide [Linzess (] 145 Mcg) 0 each PO DAILY [facility] Last Admin: 03/08/17 08:54 Dose: Not Given Prednisone (Prednisone) 40 mg PO DAILY [facility] Stop: 03/09/17 09:01 Last Admin: 03/08/17 08:03 Dose: 40 mg Prednisone (Prednisone) 30 mg PO DAILY [facility] Stop: 03/12/17 09:01 Prednisone (Prednisone) 20 mg PO DAILY [facility] Stop: 03/15/17 09:01 Prednisone (Prednisone) 10 mg PO DAILY [facility] Stop: 03/18/17 09:01 Rosuvastatin Calcium (Crestor) 5 mg PO DAILY [facility] Last Admin: 03/08/17 08:05 Dose: 5 mg Saccharomyces Boulardii (Florastor) 250 mg PO BID [facility] Last Admin: 03/08/17 08:02 Dose: 250 mg Fluticasone/Salmeterol (Advair Diskus 500-50) 1 puff INH BID [facility] Last Admin: 03/07/17 20:24 Dose: 1 puff Sodium Chloride (Saline Flush) 10 ml FLUSH ASDIRECTED PRN PRN Reason: Keep Vein Open Temazepam (Restoril) 7.5 mg PO BEDTIME PRN PRN Reason: Insomnia Last Admin: 03/07/17 20:11 Dose: 7.5 mg Tramadol HCl (Ultram) 50 mg PO Q4HR PRN PRN Reason: Pain Last Admin: 03/08/17 06:29 Dose: 50 mg Warfarin Sodium (Pharmacy To Dose - Warfarin) 1 dose .XX ASDIRECTED [facility] Warfarin Sodium (Coumadin) 5 mg PO ONETIME ONE Stop: 03/08/17 18:01 Discontinued Medications Albuterol/Ipratropium (Duoneb 3.0-0.5 Mg/3 Ml) 3 ml NEB ONETIME ONE Stop: 03/03/17 09:04 Last Admin: 03/03/17 09:26 Dose: 3 ml Bisacodyl (Dulcolax) 10 mg RECTAL ONETIME ONE Stop: 03/05/17 10:29 Last Admin: 03/05/17 12:30 Dose: 10 mg Diphenhydramine HCl (Benadryl) 25 mg PO Q6H [facility] Last Admin: 03/04/17 10:41 Dose: Not Given Enoxaparin Sodium (Lovenox) 40 mg SUBCUT DAILY [facility] Last Admin: 03/04/17 08:01 Dose: 40 mg Furosemide (Lasix) 40 mg IVPUSH NOW ONE Stop: 03/03/17 09:05 Last Admin: 03/03/17 09:59 Dose: 40 mg Ceftriaxone Sodium 2 gm/ (Sodium Chloride) 100 mls @ 200 mls/hr IV Q24H [facility] Last Admin: 03/03/17 10:29 Dose: 200 mls/hr Azithromycin 500 mg/ Sodium (Chloride) 250 mls @ 250 mls/hr IV ONETIME ONE Stop: 03/03/17 11:41 Last Admin: 03/03/17 11:01 Dose: 250 mls/hr Azithromycin 500 mg/ Sodium (Chloride) 250 mls @ 250 mls/hr IV Q24H [facility] Last Admin: 03/04/17 08:01 Dose: 250 mls/hr Sodium Chloride (Normal Saline) 1,000 mls @ 75 mls/hr IV ASDIRECTED [facility] Last Admin: 03/04/17 05:30 Dose: 75 mls/hr Diltiazem HCl 125 mg/ Sodium (Chloride) 125 mls @ 5 mls/hr IV TITRATE [facility]; 5 MG /HR PRN Reason: Protocol Last Titration: 03/04/17 11:23 Dose: 0 mg/hr, 0 mls/hr Sodium Chloride (Normal Saline) Confirm Administered Dose 100 mls @ as directed .ROUTE .STK-MED ONE Stop: 03/04/17 02:06 Last Admin: 03/04/17 02:43 Dose: Not Given Ceftriaxone Sodium 2 gm/ (Sodium Chloride) 100 mls @ 200 mls/hr IV Q24H [facility] Last Admin: 03/04/17 10:39 Dose: 200 mls/hr Levothyroxine Sodium (Levothyroxine) 112 mcg PO ACBRK [facility] Last Admin: 03/05/17 12:22 Dose: Not Given Magnesium Oxide (Magnesium Oxide) 400 mg PO BID [facility] Last Admin: 03/05/17 08:50 Dose: 400 mg Methylprednisolone Sodium Succinate (Solu-Medrol) 40 mg IVPUSH DAILY [facility] Last Admin: 03/06/17 08:54 Dose: 40 mg Metoprolol Tartrate (Lopressor) 12.5 mg PO Q8H [facility] Last Admin: 03/05/17 20:51 Dose: 12.5 mg Alendronate 70mg 70 mg PO Q7D@0600 [facility] Pneumococcal 13-Valent Conj Vacc (Prevnar 13) 0.5 ml IM .ONCE ONE Stop: 03/07/17 13:16 Potassium Chloride (Potassium Chloride) 40 meq PO BID [facility] Stop: 03/04/17 21:01 Last Admin: 03/04/17 21:25 Dose: 40 meq Fluticasone/Salmeterol (Advair Diskus 250-50) 1 puff INH BID [facility] Sodium Chloride (Saline Flush) 10 ml FLUSH ASDIRECTED PRN PRN Reason: Keep Vein Open Last Admin: 03/03/17 09:59 Dose: 10 ml Warfarin Sodium (Coumadin Sliding Scale) 1 each PO DAILY [facility] Warfarin Sodium (Coumadin) 5 mg PO ONETIME@1800 ONE Stop: 03/06/17 18:01 Last Admin: 03/06/17 17:51 Dose: 5 mg Warfarin Sodium (Coumadin) 5 mg PO ONETIME@1800 ONE Stop: 03/07/17 18:01 Last Admin: 03/07/17 17:51 Dose: 5 mg Zolpidem Tartrate (Ambien) 5 mg PO QPM [facility] Zolpidem Tartrate (Ambien) 5 mg PO BEDTIME [facility] Last Admin: 03/04/17 21:25 Dose: 5 mg - Exam Quality Assessment: Reports: DVT prophylaxis General: Reports: alert, oriented, cooperative, no acute distress HEENT: Reports: Pupils equal, Pupils reactive, EOMI, Mucous membr. moist/pink Neck: Reports: supple Lungs: Reports: Clear to auscultation, Normal respiratory effort Cardiovascular: Reports: Regular Rate, Regular Rhythm Abdomen: Reports: bowel sounds present, soft, no tenderness, no distension (Female) Exam: Deferred Rectal (Female) Exam: Deferred Back Exam: Reports: Normal Inspection Extremities: Reports: no edema, normal pulses Skin: Reports: warm, dry Neurological: Reports: no new focal deficit Psy/Mental Status: Reports: alert, normal affect, normal mood *Q Meaningful Use (DIS) - VTE *Q VTE Criteria *Q: - Stroke *Q Stroke Criteria *Q: - AMI *Q AMI Criteria *Q:
--- NOTE | 2017-03-08 10:06 | CR ---
Chest: Two views of the chest are obtained. Comparison: Previous chest x-ray of 03/05/17. Improving infiltrates on both sides. Lucency seen outside the chest on the left side. Difficult to exclude a small area of lung herniation through the chest wall. This is noted on previous studies performed earlier on the same day. Slight areas of atelectasis seen. Heart size is normal. Tortuous thoracic aorta is seen. Slight degenerative change scattered within the spine. Previous lower lumbar spine surgery is noted. Impression: 1. Improving chest x-ray. 2. Lucency outside the lower left chest wall possibly due to lung herniation. This is similar to most recent exams. Chest CT would be needed to confirm or rule out this possibility if clinically indicated. 3. Other incidental findings. Diagnostic code #3
[2017-03-08] MEDS ORDERED: Levofloxacin 750 MG Tab PO ONE (12:30)
[2017-03-08] MEDS ORDERED: Warfarin 5 MG Tab PO ONE (18:00)
[2017-03-10] MEDS ORDERED: predniSONE 10 MG Tab PO SCH (09:00)
[2017-03-13] MEDS ORDERED: predniSONE 20 MG Tab PO SCH (09:00)
[2017-03-16] MEDS ORDERED: predniSONE 10 MG Tab PO SCH (09:00)
== END 2017-03-08 13:01 | disposition home or self-care (01) | DRG 195 ==
LOC: JD.ED 08:24 → JD.MS 10:44 → MERGE 10:44 → JD.ICU 03-04 01:57 → JD.MS 03-04 18:14
PROVIDERS: ADMIT Internal Medicine Cardiovascular Disease; ATTEND Internal Medicine Cardiovascular Disease
DX: J18.9 Pneumonia, unspecified organism (principal); R09.02 Hypoxemia; I11.0 Hypertensive heart disease with heart failure; I50.9 Heart failure, unspecified; I95.9 Hypotension, unspecified; J44.9 Chronic obstructive pulmonary disease, unspecified; I48.0 Paroxysmal atrial fibrillation; E78.5 Hyperlipidemia, unspecified; K59.00 Constipation, unspecified; J30.2 Other seasonal allergic rhinitis; M19.90 Unspecified osteoarthritis, unspecified site; E03.9 Hypothyroidism, unspecified; K44.9 Diaphragmatic hernia without obstruction or gangrene; N39.41 Urge incontinence; L30.9 Dermatitis, unspecified; Z96.643 Presence of artificial hip joint, bilateral; Z96.651 Presence of right artificial knee joint; Z79.899 Other long term (current) drug therapy; Z88.0 Allergy status to penicillin; Z88.8 Allergy status to other drugs, medicaments and biological substances; Z23 Encounter for immunization
CPT/HCPCS: 36415; 36600; 71010; 80053; 81001; 82553; 82803; 83735; 83880; 84484; 85025; 85610; 86140; 87040 ×2; 93005; 94664; 96365; 96375; 99285; J0696; J1940; J7030; J7050; 71020; 71020-26; 80048; 86738; 87899; 90670; 93306; 94640; 94667; 94668; 94760; 94761; 96367; 97110-GP; 97112-GP; 97116-GP; 97161-GP; 97165-GO; A9270-GY; G0009; J0456; J1650; J1956; J2920; J7040

== ENCOUNTER 2017-04-09 01:50 | Emergency (ER) | payer MEDICARE, BC ==
[2017-04-09 01:53] VITALS: BP 152/70
[2017-04-09] MEDS ORDERED: HYDROmorphone 0.5 MG/0.5 ML Syringe IVPUSH ONE (02:12)
[2017-04-09] MEDS ORDERED: Ondansetron 4 MG/2 ML SDV IVPUSH ONE (02:12)
[2017-04-09] MEDS ORDERED: Sodium Chloride 0.9% 1,000 ML IV SCH (02:15)
--- NOTE | 2017-04-09 02:19 | EDM.PDOC ---
ED HPI GENERAL MEDICAL PROBLEM - General Chief Complaint: Lower Extremity Injury/Pain Stated Complaint: [facility] Time Seen by Provider: 04/09/17 01:53 Source of Information: Reports: Patient, RN Notes Reviewed History Limitations: Reports: No Limitations - History of Present Illness INITIAL COMMENTS - FREE TEXT/NARRATIVE: The patient states that she returned from the bathroom, sat on her bed, raised both of her legs up to swing them in to bed, when her left hip dislocated with a "clunk". The patient originally had a left total hip arthroplasty around 1989, but has had several revisions. Her current left hip arthroplasty was about 3 years ago, with a subsequent cap around that time, per Dr. Don. The patient states that this is the fourth time that her hip has dislocated in the past 6 weeks. Due to the frequency of her dislocations, she is being referred to [facility]. Of note, the patient is on Zaroxolyn for paroxysmal atrial fibrillation. The patient's PCP is Dr. Scherer. Her orthopedic surgeon is Dr. Don. Left Hip Pain Score (Numeric/FACES): 9 - Related Data Allergies Allergy/AdvReac Type Severity Reaction Status Date / Time atorvastatin calcium Allergy Cannot Verified 04/09/17 01:53 [From Lipitor] Remember codeine Allergy Hives Verified 04/09/17 01:53 eucalyptol Allergy Cannot Verified 04/09/17 01:53 [From Listerine Antiseptic] Remember ezetimibe [From Zetia] Allergy Cannot Verified 04/09/17 01:53 Remember lidocaine Allergy Cannot Verified 04/09/17 01:53 Remember menthol Allergy Cannot Verified 04/09/17 01:53 [From Listerine Antiseptic] Remember methyl salicylate Allergy Cannot Verified 04/09/17 01:53 [From Listerine Antiseptic] Remember morphine Allergy Cannot Verified 04/09/17 01:53 Remember moxifloxacin [From Avelox] Allergy Itching Verified 04/09/17 01:53 Penicillins Allergy Hives Verified 04/09/17 01:53 pravastatin sodium Allergy Cannot Verified 04/09/17 01:53 [From Pravachol] Remember silver sulfadiazine Allergy Cannot Verified 04/09/17 01:53 [From Silvadene] Remember sucralose Allergy Cannot Verified 04/09/17 01:53 [From Splenda (sucralose)] Remember Sulfa (Sulfonamide Allergy Cannot Verified 04/09/17 01:53 Antibiotics) Remember thymol Allergy Cannot Verified 04/09/17 01:53 [From Listerine Antiseptic] Remember wool Allergy Cannot Uncoded 04/09/17 01:53 Remember Home Meds: Home Meds Albuterol [Ventolin HFA] 2 puff INH Q4HR PRN 03/03/17 [History] Bisacodyl [Dulcolax] 5 mg PO DAILY PRN 03/03/17 [History] Calcium Carbonate/Vitamin D3 [Calcium 500 + Vit D 400] 2 tab PO BID 03/03/17 [ History] Clemastine Fumarate 1 tab PO BID 03/03/17 [History] Fluticasone/Salmeterol [Advair Diskus 500-50] 1 puff INH BID 03/03/17 [History] Furosemide [Lasix] 40 mg PO ASDIRECTED PRN 03/03/17 [History] Ibuprofen 600 mg PO TID 03/03/17 [History] Levothyroxine [Synthroid] 100 mcg PO QAM 03/03/17 [History] Magnesium Oxide 500 mg PO BID 03/03/17 [History] Montelukast [Singulair] 10 mg PO QAM 03/03/17 [History] Omeprazole 20 mg PO QAM 03/03/17 [History] Valsartan/Hydrochlorothiazide [Valsartan-Hctz 80-12.5 mg Tab] 1 tab PO QAM 03/03 [History] Zolpidem [Ambien] 5 mg PO QPM 03/03/17 [History] amLODIPine [Norvasc] 5 mg PO QAM 03/03/17 [History] traMADol [Ultram] 50 mg PO Q4HR PRN 03/03/17 [History] Linaclotide [Linzess] 145 mcg PO DAILY 03/05/17 [History] Docusate Sodium [Colace] 100 mg PO BID #30 cap 03/08/17 [Rx] Metoprolol Tartrate [Lopressor] 25 mg PO BID 04/09/17 [History] Rivaroxaban [Xarelto] 20 mg PO DAILY 04/09/17 [History] Past Medical History Cardiovascular History: Reports: Afib (paroxysmal), Blood Clots/VTE/DVT, Heart Failure, Hypertension Respiratory History: Reports: COPD, PE Gastrointestinal History: Reports: GERD Musculoskeletal History: Reports: Arthritis, Osteoporosis Endocrine/Metabolic History: Reports: Hypothyroidism Dermatologic History: Reports: Eczema - Infectious Disease History Infectious Disease History: Reports: Chicken Pox, Measles, Mumps, Shingles - Past Surgical History HEENT Surgical History: Reports: Adenoidectomy, Tonsillectomy GI Surgical History: Reports: Appendectomy, Cholecystectomy, Hernia, Abdominal Female Surgical History: Reports: Hysterectomy, Salpingo-Oophorectomy Neurological Surgical History: Reports: Lumbar Spine (2016) Musculoskeletal Surgical History: Reports: Hip Replacement (bilateral, with revisions), Knee Replacement (right) Social & Family History - Family History Family Medical History: Noncontributory - Tobacco Use Smoking Status *Q: Never Smoker Second Hand Smoke Exposure: No - Caffeine Use Caffeine Use: Reports: Coffee Other Caffeine Use: 4 cups a day - Alcohol Use Alcohol Use History: No - Recreational Drug Use Recreational Drug Use: No - Living Situation & Occupation Living situation: Reports: Single, Other ([facility] 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) Review of Systems - Review of Systems Review Of Systems: See Below Constitutional: Reports: No Symptoms Eyes: Reports: No Symptoms Ears: Reports: No Symptoms Nose: Reports: No Symptoms Mouth/Throat: Reports: No Symptoms Respiratory: Reports: No Symptoms Cardiovascular: Reports: No Symptoms GI/Abdominal: Reports: No Symptoms Genitourinary: Reports: No Symptoms Musculoskeletal: Reports: No Symptoms Skin: Reports: No Symptoms Neurological: Reports: No Symptoms Psychiatric: Reports: No Symptoms ED EXAM, GENERAL - Physical Exam Exam: See Below Exam Limited By: No Limitations General Appearance: Alert, WD/WN, No Apparent Distress Extremities: Other (There is significant for shortening of the left lower extremity, when compared to the right. There is a palpable bulge to the lateral aspect of the left hip. There is a well-healed scar on the left hip. Mild tenderness to palpation of the lateral left hip. Neurovascular status of the left lower extremity is intact.) ED TRAUMA EXTREMITY PROCEDURES - Joint Reduction Site: Hip (L) Sedation: Conscious Cedation Pre-Procedure NV Status: Normal Post-Procedure NV Status: Normal Technique: Traction/Counter Traction ([place]mil[place]o method) Number of Attempts: 2 (2nd per Dr. Cotton) Post-Reduction Imaging: Completely Reduced Joint Reduction Complications: No Course - Vital Signs Last Recorded V/S: Last Vital Signs Temp 36.6 C 04/09/17 02:50 Pulse 96 04/09/17 02:50 Resp 18 04/09/17 02:50 BP 152/70 H 04/09/17 02:50 Pulse Ox 96 04/09/17 02:50 - Orders/Labs/Meds Orders: Active Orders 24 hr Category Date Time Status Nothing per Oral Now Diet [DIET] Diet 04/09/17 Breakfast Active Hip Min 1V w Pelvis Lt [CR] Stat Exams 04/09/17 02:12 Taken Hip Min 1V w Pelvis Lt [CR] Stat Exams 04/09/17 03:33 Taken Pelvis 1V or 2V [CR] Stat Exams 04/09/17 03:04 Taken Sodium Chloride 0.9% [Normal Saline] 1,000 ml Med 04/09/17 02:15 Active IV ASDIRECTED Medication Orders Sodium Chloride (Normal Saline) 1,000 mls @ 100 mls/hr IV ASDIRECTED JUSTICE Last Admin: 04/09/17 02:20 Dose: 100 mls/hr Meds: Medications Generic Name Dose Route Start Last Admin Trade Name Freq PRN Reason Stop Dose Admin Sodium Chloride 1,000 mls @ 100 mls/hr 04/09/17 02:15 04/09/17 02:20 Normal Saline IV 100 mls/hr ASDIRECTED JUSTICE Administration Discontinued Medications Generic Name Dose Route Start Last Admin Trade Name Freq PRN Reason Stop Dose Admin Hydromorphone HCl 0.5 mg 04/09/17 02:12 04/09/17 02:20 Dilaudid IVPUSH 04/09/17 02:13 0.5 mg ONETIME ONE Administration Ondansetron HCl 4 mg 04/09/17 02:12 04/09/17 02:20 Zofran IVPUSH 04/09/17 02:13 4 mg ONETIME ONE Administration Propofol Confirm 04/09/17 03:06 Diprivan 20 Ml Administered 04/09/17 03:07 Dose 200 mg .ROUTE .STK-MED ONE - Radiology Interpretation Free Text/Narrative:: 3-view radiographs of the left hip and pelvis appears to demonstrate a posterior dislocation. No fracture identified. Pelvis is noted to be osteopenic. Formal read per the Radiologist pending. First post attempted reduction AP pelvis confirms unsuccessful reduction of the left hip dislocation. No fracture identified. Formal report of the Radiologist pending. Second post attempted reduction AP pelvis and lateral left hip confirm access for reduction of the left hip dislocation. No fracture identified. Formal read per the Radiologist pending. - Re-Assessments/Exams Free Text/Narrative Re-Assessment/Exam: 04/09/17 03:17 Following anesthesia with propofol per anesthesiology, I attempted left hip reduction per the [place] method, however, the left lower extremity remained foreshortened when compared with the right, suggesting unsuccessful reduction. After numerous attempts, the patient began to wake up, therefore efforts were stopped. Post attempted reduction radiograph confirms unsuccessful reduction. The case was discussed with Dr. Cotton at 03:15. He will come to the ED to attempt reduction. 04/09/17 03:33 Dr. Cotton came to the ED. After sedation with propofol per anesthesiology, he appears to have successfully reduced the patient's left hip per the Funmilayo method. Post reduction hip x-ray has been ordered. Departure - Departure Time of Disposition: 03:53 Disposition: Home, Self-Care 01 Condition: Fair Clinical Impression: Recurrent dislocation, left hip - Discharge Information Referrals: Savita Scherer [Primary Care Provider] - Kade Don MD [Ordering Only Provider] - Forms: ED Department Discharge Additional Instructions: You were seen in the emergency room after your artificial left hip dislocated. X-rays of your left hip confirmed dislocation. Your left hip was successfully reduced by the orthopedic surgeon Dr. Cotton. Continue to avoid left lower extremity positions that can cause hip dislocation , such as crossing your legs. Follow-up with your orthopedic surgeon, Dr. Don at the next available appointment. If any other problems, please do not hesitate to return to the ER. - My Orders Last 24 Hours: My Active Orders 04/09/17 02:12 Hip Min 1V w Pelvis Lt [CR] Stat 04/09/17 02:15 Sodium Chloride 0.9% [Normal Saline] 1,000 ml IV ASDIRECTED 04/09/17 03:04 Pelvis 1V or 2V [CR] Stat 04/09/17 03:33 Hip Min 1V w Pelvis Lt [CR] Stat 04/09/17 Breakfast Nothing per Oral Now Diet [DIET] - Assessment/Plan Last 24 Hours: My Active Orders 04/09/17 02:12 Hip Min 1V w Pelvis Lt [CR] Stat 04/09/17 02:15 Sodium Chloride 0.9% [Normal Saline] 1,000 ml IV ASDIRECTED 04/09/17 03:04 Pelvis 1V or 2V [CR] Stat 04/09/17 03:33 Hip Min 1V w Pelvis Lt [CR] Stat 04/09/17 Breakfast Nothing per Oral Now Diet [DIET]
--- NOTE | 2017-04-09 02:51 | PCM.PREANE ---
Preanesthetic Assessment - Anesthesia/Transfusion/Family Hx Anesthesia History: Prior Anesthesia Without Reaction Family History of Anesthesia Reaction: No Transfusion History: No Prior Transfusion(s) - Review of Systems General: No Symptoms Pulmonary: No Symptoms Cardiovascular: No Symptoms Gastrointestinal: No symptoms Neurological: No Symptoms Other: Reports: Thyroid Problems - Physical Assessment NPO Status Date: 04/08/17 NPO Status Time: 17:30 Pulse: 96 O2 Sat by Pulse Oximetry: 96 Respiratory Rate: 18 Blood Pressure: 152/70 Temperature: 36.6 C Vital Signs: Last Vital Signs Temp 36.6 C 04/09/17 01:51 Pulse 63 04/09/17 01:51 Resp 18 04/09/17 01:51 BP 152/70 H 04/09/17 01:51 Pulse Ox 96 04/09/17 01:51 Height: 1.7 m Weight: 70.307 kg ASA Class: 3E Mental Status: Alert & Oriented x3 Airway Class: Mallampati = 1 Dentition: Reports: Normal Dentition Thyro-Mental Finger Breadths: 3 Mouth Opening Finger Breadths: 3 ROM/Head Extension: Full Lungs: Clear to auscultation, Normal respiratory effort Cardiovascular: Regular Rate, Regular Rhythm, No Murmurs - Allergies Allergies/Adverse Reactions: Allergies Allergy/AdvReac Type Severity Reaction Status Date / Time atorvastatin calcium Allergy Cannot Verified 04/09/17 01:53 [From Lipitor] Remember codeine Allergy Hives Verified 04/09/17 01:53 eucalyptol Allergy Cannot Verified 04/09/17 01:53 [From Listerine Antiseptic] Remember ezetimibe [From Zetia] Allergy Cannot Verified 04/09/17 01:53 Remember lidocaine Allergy Cannot Verified 04/09/17 01:53 Remember menthol Allergy Cannot Verified 04/09/17 01:53 [From Listerine Antiseptic] Remember methyl salicylate Allergy Cannot Verified 04/09/17 01:53 [From Listerine Antiseptic] Remember morphine Allergy Cannot Verified 04/09/17 01:53 Remember moxifloxacin [From Avelox] Allergy Itching Verified 04/09/17 01:53 Penicillins Allergy Hives Verified 04/09/17 01:53 pravastatin sodium Allergy Cannot Verified 04/09/17 01:53 [From Pravachol] Remember silver sulfadiazine Allergy Cannot Verified 04/09/17 01:53 [From Silvadene] Remember sucralose Allergy Cannot Verified 04/09/17 01:53 [From Splenda (sucralose)] Remember Sulfa (Sulfonamide Allergy Cannot Verified 04/09/17 01:53 Antibiotics) Remember thymol Allergy Cannot Verified 04/09/17 01:53 [From Listerine Antiseptic] Remember wool Allergy Cannot Uncoded 04/09/17 01:53 Remember - Blood Blood Available: No Product(s) Available: None - Anesthesia Plan Pre-Op Medication Ordered: Beta Vinod Beta Vinod: Metoprolol Med Last Dose Date: 04/08/17 Med Last Dose Time: 20:00 - Acknowledgements Anesthesia Type Planned: MAC Pt an Appropriate Candidate for the Planned Anesthesia: Yes Alternatives and Risks of Anesthesia Discussed w Pt/Guardian: Yes Pt/Guardian Understands and Agrees with Anesthesia Plan: Yes PreAnesthesia Questionnaire Cardiovascular History: Reports: Afib (paroxysmal), Blood Clots/VTE/DVT, Heart Failure, Hypertension Respiratory History: Reports: COPD, PE Gastrointestinal History: Reports: GERD Genitourinary History: Reports: Urinary Incontinence Musculoskeletal History: Reports: Arthritis, Osteoporosis Endocrine/Metabolic History: Reports: Hypothyroidism Dermatologic History: Reports: Eczema - Infectious Disease History Infectious Disease History: Reports: Chicken Pox, Measles, Mumps, Shingles - Past Surgical History HEENT Surgical History: Reports: Adenoidectomy, Tonsillectomy GI Surgical History: Reports: Appendectomy, Cholecystectomy, Hernia, Abdominal Female Surgical History: Reports: Hysterectomy, Salpingo-Oophorectomy Neurological Surgical History: Reports: Lumbar Spine (2016) Musculoskeletal Surgical History: Reports: Hip Replacement (bilateral, with revisions), Knee Replacement (right) - SUBSTANCE USE Smoking Status *Q: Never Smoker Second Hand Smoke Exposure: No Recreational Drug Use History: No - HOME MEDS Home Medications: Home Meds Albuterol [Ventolin HFA] 2 puff INH Q4HR PRN 03/03/17 [History] Bisacodyl [Dulcolax] 5 mg PO DAILY PRN 03/03/17 [History] Calcium Carbonate/Vitamin D3 [Calcium 500 + Vit D 400] 2 tab PO BID 03/03/17 [ History] Clemastine Fumarate 1 tab PO BID 03/03/17 [History] Fluticasone/Salmeterol [Advair Diskus 500-50] 1 puff INH BID 03/03/17 [History] Furosemide [Lasix] 40 mg PO ASDIRECTED PRN 03/03/17 [History] Ibuprofen 600 mg PO TID 03/03/17 [History] Levothyroxine [Synthroid] 100 mcg PO QAM 03/03/17 [History] Magnesium Oxide 500 mg PO BID 03/03/17 [History] Montelukast [Singulair] 10 mg PO QAM 03/03/17 [History] Omeprazole 20 mg PO QAM 03/03/17 [History] Valsartan/Hydrochlorothiazide [Valsartan-Hctz 80-12.5 mg Tab] 1 tab PO QAM 03/03 [History] Zolpidem [Ambien] 5 mg PO QPM 03/03/17 [History] amLODIPine [Norvasc] 5 mg PO QAM 03/03/17 [History] traMADol [Ultram] 50 mg PO Q4HR PRN 03/03/17 [History] Linaclotide [Linzess] 145 mcg PO DAILY 03/05/17 [History] Docusate Sodium [Colace] 100 mg PO BID #30 cap 03/08/17 [Rx] Metoprolol Tartrate [Lopressor] 25 mg PO BID 04/09/17 [History] Rivaroxaban [Xarelto] 20 mg PO DAILY 04/09/17 [History] - CURRENT (IN HOUSE) MEDS Current Meds: Current Medications Sodium Chloride (Normal Saline) 1,000 mls @ 100 mls/hr IV ASDIRECTED JUSTICE Last Admin: 04/09/17 02:20 Dose: 100 mls/hr Discontinued Medications Hydromorphone HCl (Dilaudid) 0.5 mg IVPUSH ONETIME ONE Stop: 04/09/17 02:13 Last Admin: 04/09/17 02:20 Dose: 0.5 mg Ondansetron HCl (Zofran) 4 mg IVPUSH ONETIME ONE Stop: 04/09/17 02:13 Last Admin: 04/09/17 02:20 Dose: 4 mg
[2017-04-09] MEDS ORDERED: Propofol 200 MG/20 ML SDV ONE (03:06)
--- NOTE | 2017-04-09 09:06 | CR ---
Pelvis: AP view of the pelvis was obtained utilizing portable technique. Comparison: Previous pelvis study of 04/09/17 (2:23 AM). Continued dislocation of left hip prosthesis is seen. Other portions of the exam also remain stable. Impression: 1. Continued dislocation of left hip prosthesis. Diagnostic code #3
--- NOTE | 2017-04-09 09:06 | CR ---
Pelvis and left hip: AP view of the pelvis was obtained as well as lateral view of the left hip. Comparison: Previous studies performed earlier on same day. Previously noted dislocated hip prosthesis has been reduced. Stable right hip prosthesis is noted. Stable lumbar spine surgery is seen. Bony structures are osteopenic. No acute bony abnormality is identified. Impression: 1. Reduction of previously dislocated left hip prosthesis. 2. Other incidental findings which are stable. Diagnostic code #2
--- NOTE | 2017-04-09 09:06 | CR ---
Pelvis and left hip: AP view of the pelvis was obtained as well as AP and lateral views of the left hip. Left hip prosthesis is seen. Dislocation of the prosthesis is seen posteriorly and anteriorly in relation to the acetabular cup. Right hip prosthesis is seen which is normal in alignment. Previous lumbar spine surgery is noted. Bony structures are osteopenic. No acute bony abnormality is seen. Impression: 1. Dislocated hip prosthesis and other incidental findings. Diagnostic code #3
--- NOTE | 2017-04-16 08:28 | OR ---
DATE OF OPERATION: 04/09/2017 SURGEON: Kenneth Cotton MD OPERATION PERFORMED: Closed reduction of left posterior hip dislocation. PREOPERATIVE DIAGNOSIS: Left total joint posterior hip dislocation. POSTOPERATIVE DIAGNOSIS: Left total joint posterior hip dislocation. ANESTHESIA: MAC. ANESTHESIA PROVIDER: Iker Palumbo CRNA. COOLER WORKER: None. ESTIMATED BLOOD LOSS: Not applicable. COMPLICATIONS: None. CONDITION: Stable. DESCRIPTION OF PROCEDURE: The patient was identified in the [facility]. Proper site was marked and identified, and then the consent was signed previously. At this time, after MAC sedation, the patient's left lower extremity had traction, internal rotation, and adduction applied to the left lower extremity. At this time, there was a palpable reduction of the left total hip arthroplasty. Postoperative radiographs showed concentrically-reduced left hip. The patient tolerated this well and was placed in an abductor wedge. She will follow up in [place] for possible revision. ESEQUIEL /[id number]
--- NOTE | 2017-04-16 08:57 | CONS ---
CONSULTING PHYSICIAN: Kenneth Cotton MD DATE OF CONSULTATION: 04/09/2017 HISTORY OF PRESENT ILLNESS: This is a 76-year-old female, who is known to me previously, who is here for left posterior hip dislocation. The patient has had multiple dislocations to the left hip. She had a total hip arthroplasty done around 1989 and has had several revisions. Her most current one was done [address] Benz. The patient states this is the fourth time that her hip has dislocated in the past 6 weeks. Due to the frequency of dislocation, she has been referred to the [facility]. She denies any other injury or problems at this time. She states that she returned from the bathroom, sat on her bed, raised both of her of legs up to swing them into bed when her hip dislocated at this time. PAST MEDICAL HISTORY: Significant for atrial fibrillation, history of DVT, heart failure, hypertension, COPD, PE, GERD, arthritis, osteoporosis, hepatitis, and eczema. PAST SURGICAL HISTORY: Adenoidectomy, tonsillectomy, appendectomy, cholecystectomy, hernia, abdominal surgery, hysterectomy, salpingo-oophorectomy, lumbar spine surgery, and multiple left hip replacement and revisions. ALLERGIES: Atorvastatin, codeine, and lidocaine. MEDICATIONS: Please see attached list. FAMILY HISTORY: Noncontributory. REVIEW OF SYSTEMS: Reviewed. Please see the emergency room provider's notes. PHYSICAL EXAMINATION: GENERAL: Alert, in no acute distress. VITAL SIGNS: Stable. Afebrile. MUSCULOSKELETAL: Examination of the left lower extremity, it was shortened and internally rotated. The patient was able to dorsiflex, plantarflex. She had sensation intact to light touch in medial, lateral, plantar, dorsal, first dorsal web space, 2+ dorsalis pedis, posterior tibial pulses. SKIN: Otherwise intact. DIAGNOSTIC STUDY: Radiographs showed posterior hip dislocation of left hip. ASSESSMENT: Total hip arthroplasty of the left posterior hip dislocation. PLAN: At this time, I did discuss with the patient that she does need to be reduced. I will have her follow with [place]. She will be placed in an abductor wedge after the reduction. Risks, benefits, complications, and alternatives were discussed and she agrees for aforementioned procedure. MMODAL /[id number]
== END 2017-04-09 04:05 | disposition home or self-care (01) ==
LOC: JD.ED 01:50
PROC: 0SWBXJZ Revision of Synthetic Substitute in Left Hip Joint, External Approach (ICD-10-PCS; principal; 2017-04-09)
PROC: 0SWBXJZ Revision of Synthetic Substitute in Left Hip Joint, External Approach (ICD-10-PCS; 2017-04-09)
DX: T84.021A Dislocation of internal left hip prosthesis, initial encounter (principal); Z01.818 Encounter for other preprocedural examination; I11.0 Hypertensive heart disease with heart failure; I50.9 Heart failure, unspecified; I48.0 Paroxysmal atrial fibrillation; J44.9 Chronic obstructive pulmonary disease, unspecified
CPT/HCPCS: 27266; 36415; 71020; 72170; 73501; 81003; 85025; 87641; 96361; 96374; 96375; 99214; 99285; J1170; J2405; J7040; 01200; 27252; 99284; J2704

== ENCOUNTER 2017-04-16 06:54 | Day surgery (SDC) | payer MEDICARE, BC ==
[~2017-04-16 06:54] MED LIST: Lactated Ringers 1,000 ML IV SCH; Sodium Chloride 0.9% 10 ML Syringe FLUSH PRN
[2017-04-16] MEDS ORDERED: fentaNYL 100 MCG/2 ML SDV ONE (07:19)
[2017-04-16] MEDS ORDERED: Propofol 200 MG/20 ML SDV ONE (07:19)
[2017-04-16] MEDS ORDERED: Lidocaine 1% 4 ML ONE (07:19)
[2017-04-16] MEDS ORDERED: Clindamycin Phosphate 900 MG in Dextrose 5% in Water 100 ML IV ONE ×2 (07:30)
[2017-04-16] MEDS ORDERED: Bupivacaine 0.5% 30 ML SDV ONE (07:30)
[2017-04-16] MEDS ORDERED: Lidocaine 1% 30 ML SDV ONE (07:30)
[2017-04-16] MEDS ORDERED: Lidocaine 1%/Sod Bicarbonate in NS 8.4% 1 ML Syringe IV ONE (07:33)
--- NOTE | 2017-04-16 07:35 | PCM.PREANE ---
Preanesthetic Assessment - Anesthesia/Transfusion/Family Hx Anesthesia History: Prior Anesthesia Without Reaction Family History of Anesthesia Reaction: No Transfusion History: No Prior Transfusion(s) - Review of Systems General: No Symptoms Pulmonary: No Symptoms Cardiovascular: No Symptoms Gastrointestinal: No symptoms Neurological: No Symptoms Other: Reports: Easy Bruising, Thyroid Problems - Physical Assessment NPO Status Date: 04/15/17 NPO Status Time: 20:30 Pulse: 57 O2 Sat by Pulse Oximetry: 95 Respiratory Rate: 16 Blood Pressure: 158/79 Temperature: 96.9 F Height: 5 ft 7 in Weight: 70.307 kg ASA Class: 3 Mental Status: Alert & Oriented x3 Airway Class: Mallampati = 1 Dentition: Reports: Normal Dentition Thyro-Mental Finger Breadths: 3 Mouth Opening Finger Breadths: 3 ROM/Head Extension: Full Lungs: Normal respiratory effort, Wheezing (expiratory in bases- albuteral treatment ordered.) Cardiovascular: Regular Rate, Regular Rhythm - Lab Values: 04/09/17 Hgb 13.5 plt 351 - Imaging/EKG Impressions: NSR by Dr Love TL this am CXR 04/06 No significant change is seen from prior xray 03/06 EF 50-55% - Allergies Allergies/Adverse Reactions: Allergies Allergy/AdvReac Type Severity Reaction Status Date / Time atorvastatin calcium Allergy Cannot Verified 04/15/17 14:11 [From Lipitor] Remember codeine Allergy Hives Verified 04/15/17 14:11 eucalyptol Allergy Cannot Verified 04/15/17 14:11 [From Listerine Antiseptic] Remember ezetimibe [From Zetia] Allergy Cannot Verified 04/15/17 14:11 Remember lidocaine Allergy Cannot Verified 04/15/17 14:11 Remember menthol Allergy Cannot Verified 04/15/17 14:11 [From Listerine Antiseptic] Remember methyl salicylate Allergy Cannot Verified 04/15/17 14:11 [From Listerine Antiseptic] Remember morphine Allergy Cannot Verified 04/15/17 14:11 Remember moxifloxacin [From Avelox] Allergy Itching Verified 04/15/17 14:11 Penicillins Allergy Hives Verified 04/15/17 14:11 pravastatin sodium Allergy Cannot Verified 04/15/17 14:11 [From Pravachol] Remember silver sulfadiazine Allergy Cannot Verified 04/15/17 14:11 [From Silvadene] Remember sucralose Allergy Cannot Verified 04/15/17 14:11 [From Splenda (sucralose)] Remember Sulfa (Sulfonamide Allergy Cannot Verified 04/15/17 14:11 Antibiotics) Remember thymol Allergy Cannot Verified 04/15/17 14:11 [From Listerine Antiseptic] Remember wool Allergy Cannot Uncoded 04/15/17 14:11 Remember - Blood Blood Available: No - Anesthesia Plan Pre-Op Medication Ordered: Beta Vinod Beta Vinod: Metoprolol Med Last Dose Date: 04/16/17 Med Last Dose Time: 05:30 - Acknowledgements Anesthesia Type Planned: MAC Pt an Appropriate Candidate for the Planned Anesthesia: Yes Alternatives and Risks of Anesthesia Discussed w Pt/Guardian: Yes Pt/Guardian Understands and Agrees with Anesthesia Plan: Yes PreAnesthesia Questionnaire HEENT History: Reports: Allergic Rhinitis Cardiovascular History: Reports: Afib, Blood Clots/VTE/DVT, Heart Failure, High Cholesterol, Hypertension, SOB on Exertion Respiratory History: Reports: Asthma, COPD, PE Gastrointestinal History: Reports: Chronic Constipation, GERD, Hiatal Hernia, Other (See Below) Other Gastrointestinal History: stomach ulcer Genitourinary History: Reports: Urinary Incontinence TANNING WHEEL FILLER History: Reports: None Musculoskeletal History: Reports: Arthritis, Other (See Below) Other Musculoskeletal History: L foot painful hardware, osteoporosis, myalgias Endocrine/Metabolic History: Reports: Hypothyroidism Hematologic History: Reports: Other (See Below) Other Hematologic History: insomnia Immunologic History: Reports: None Oncologic (Cancer) History: Reports: None Dermatologic History: Reports: Eczema - Infectious Disease History Infectious Disease History: Reports: Chicken Pox, Measles, Mumps, Shingles - Past Surgical History Head Surgeries/Procedures: HEENT Surgical History: Reports: Adenoidectomy, Tonsillectomy Cardiovascular Surgical History: Reports: None Respiratory Surgical History: Reports: Other (See Below) Other Respiratory Surgeries/Procedures: Removed phlem from lung, post pneumonia GI Surgical History: Reports: Appendectomy, Cholecystectomy, Hernia, Abdominal Other GI Surgeries/Procedures: partial bowel obstrucions x2 which resolved on own. Female Surgical History: Reports: Hysterectomy, Salpingo-Oophorectomy Endocrine Surgical History: Reports: None Neurological Surgical History: Reports: Laminectomy, Other (See Below) Other Neurological Surgeries/Procedures: mata, and six screws in back 2015 Musculoskeletal Surgical History: Reports: Hip Replacement, Knee Replacement Other Musculoskeletal Surgeries/Procedures:: problems with left hip dislocations , R-knee, and bilat hip replacements Dermatological Surgical History: Reports: None - SUBSTANCE USE Smoking Status *Q: Never Smoker Tobacco Use Within Last Twelve Months: No Second Hand Smoke Exposure: No Days Per Week of Alcohol Use: 0 Recreational Drug Use History: No - HOME MEDS Home Medications: Home Meds Albuterol [Ventolin HFA] 2 puff INH Q4HR PRN 03/03/17 [History] Bisacodyl [Dulcolax] 5 mg PO DAILY PRN 03/03/17 [History] Calcium Carbonate/Vitamin D3 [Calcium 500 + Vit D 400] 2 tab PO BID 03/03/17 [ History] Clemastine Fumarate 1 tab PO BID 03/03/17 [History] Fluticasone/Salmeterol [Advair Diskus 500-50] 1 puff INH BID 03/03/17 [History] Furosemide [Lasix] 40 mg PO ASDIRECTED PRN 03/03/17 [History] Ibuprofen 600 mg PO TID 03/03/17 [History] Levothyroxine [Synthroid] 100 mcg PO QAM 03/03/17 [History] Magnesium Oxide 500 mg PO BID 03/03/17 [History] Montelukast [Singulair] 10 mg PO QAM 03/03/17 [History] Omeprazole 20 mg PO QAM 03/03/17 [History] Valsartan/Hydrochlorothiazide [Valsartan-Hctz 80-12.5 mg Tab] 1 tab PO QAM 03/03 [History] Zolpidem [Ambien] 5 mg PO QPM 03/03/17 [History] amLODIPine [Norvasc] 5 mg PO QAM 03/03/17 [History] traMADol [Ultram] 50 mg PO Q4HR PRN 03/03/17 [History] Linaclotide [Linzess] 145 mcg PO DAILY 03/05/17 [History] Docusate Sodium [Colace] 100 mg PO BID #30 cap 03/08/17 [Rx] Metoprolol Tartrate [Lopressor] 25 mg PO BID 04/09/17 [History] Rivaroxaban [Xarelto] 20 mg PO DAILY 04/09/17 [History] - CURRENT (IN HOUSE) MEDS Current Meds: Current Medications Lactated Ringer's (Ringers, Lactated) 1,000 mls @ 125 mls/hr IV ASDIRECTED JUSTICE Stop: 04/16/17 23:00 Clindamycin Phosphate 900 mg/ (Dextrose/Water) 106 mls @ 212 mls/hr IV ONETIME ONE Stop: 04/16/17 07:59 Sodium Chloride (Saline Flush) 10 ml FLUSH ASDIRECTED PRN PRN Reason: Keep Vein Open Stop: 04/16/17 18:00 Discontinued Medications Bupivacaine HCl (Marcaine 0.5%) Confirm Administered Dose 30 ml .ROUTE .STK-MED ONE Stop: 04/16/17 07:31 Lidocaine HCl (Xylocaine-Mpf 1%) Confirm Administered Dose 30 ml .ROUTE .STK- MED ONE Stop: 04/16/17 07:31
[2017-04-16] MEDS ORDERED: Albuterol 0.083% 2.5 MG/3 ML Neb Soln NEB ONE (07:37)
[2017-04-16] MEDS ORDERED: Ondansetron 4 MG/2 ML SDV IVPUSH PRN (08:20)
--- NOTE | 2017-04-16 08:57 | PCM48HPAN ---
Post Anesthesia Note - EVALUATION WITHIN 48HRS OF ANESTHETIC Vital Signs in Normal Range: Yes Patient Participated in Evaluation: Yes Respiratory Function Stable: Yes Airway Patent: Yes Cardiovascular Function Stable: Yes Hydration Status Stable: Yes Pain Control Satisfactory: Yes (denies pain) Nausea and Vomiting Control Satisfactory: Yes Mental Status Recovered: Yes
--- NOTE | 2017-04-16 09:05 | PCM.OPNOTE ---
- General Post-Op/Procedure Note Date of Surgery/Procedure: 04/16/17 Operative Procedure(s): Removal of Retained internal fixation hardware, screws, LEFT foot. Pre Op Diagnosis: Painful/Symptomatic internal fixation screws, LEFT foot. Post-Op Diagnosis: Same Anesthesia Technique: Local (Pre-Op: 10ccs 1:1 mixture 1% Lidocaine pl. + 0.5% Marcaine pl.), MAC Primary Surgeon: Darnell Matute II Anesthesia Provider: Linnette Ross Complications: None Condition: Good Free Text/Narrative:: Patient left the O.R. for recovery with her vital signs stable & vascular status intact to digits 1-5 LEFT foot.
[2017-04-16 09:25] VITALS: BP 147/77
--- NOTE | 2017-04-16 10:47 | CR ---
Left Foot: Three fluoroscopic spot views were obtained of the left distal foot. Study shows removal of a screw affixing previous fracture. No additional finding is appreciated. Fluoroscopy time not given at time of dictation. Impression: 1. Findings as noted above. Diagnostic code #2 MTDD
--- NOTE | 2017-04-16 12:55 | OR ---
DATE OF OPERATION: 04/16/2017 SURGEON: Darnell Matute II, DPM LOCATION: [facility]. ANESTHESIA: MAC with local block of the left foot. ANESTHESIA PROVIDER: Linnette Ross CRNA. HEMOSTASIS: Left pneumatic ankle tourniquet at 250 mmHg pressure. PREOPERATIVE DIAGNOSIS: Painful symptomatic retained orthopedic hardware screws, left foot. POSTOPERATIVE DIAGNOSIS: Painful symptomatic retained orthopedic hardware screws, left foot. OPERATION PERFORMED: Removal of retained orthopedic hardware screws, left foot. DESCRIPTION OF PROCEDURE: Upon arrival and admission to the hospital, the patient was examined and cleared for surgery by the assigned anesthesia provider. IV access was obtained in the preoperative area where prophylactic antibiotics consisting of 900 mg of clindamycin were dispensed IV piggyback. The patient was then brought to the OR via gurney and transferred to the operating room table in the supine position. The patient was given a combination of sedations and was adequately sedated before receiving 10 mL of 1:1 mixture of 1% lidocaine plain and 0.5% Marcaine plain in the form of local infiltrative block. Anesthesia was tested and found to be adequate. The left lower extremity was then wrapped with cotton Webril padding above the ankle joint in preparation for nonsterile pneumatic ankle tourniquet which was then draped with a sterile drape. The left lower extremity was then prepped and draped in the usual aseptic manner. The extremity was elevated and exsanguinated with the use of Esmarch bandage before inflating the pneumatic ankle tourniquet at 250 mmHg pressure. The Esmarch bandage was removed and the left lower extremity was placed back to the level of the operating room table. Attention was then directed over the dorsal lateral aspect of the left 5th metatarsal, where a previous incision for a tailor's bunionectomy had been performed, the incision was along this line measuring 4 cm in a linear fashion. This was controlled the skin incision, taken down to below the subcutaneous structures with care taken to retract the vital neurovascular structures with the area as well as cauterize and/or ligate all superficial bleeders as deemed necessary. Continued soft tissue dissection was then taken down to the level to the periosteal tissue overlying the 5th metatarsal. After this had been reflected, they were brought into exposure. The internal fixation screws 2.0 mm Asnis screws from the [employer] internal fixation cannulated set. I removed both screws. The wound was then copiously lavaged with sterile saline solution. Intraoperative fluoroscopy confirmed removal of all internal fixation hardware. The sutures were utilized in a 4-0 Vicryl manner for the deep closure. Skin was reapproximated using 4-0 nylon for running interlocking simple suture knots. Postoperative anesthesia consisted of another 10 mL of 0.5% Marcaine plain. Dressings were then consisted of Betadine-soaked Adaptic gauze, 4x4 gauze, Logan, and an Enmanuel bandage. Upon completion of the surgery, the left pneumatic ankle tourniquet was deflated and it was noted that digits 1 through 5 of the left foot became pink indicating normal vascular perfusion that had returned. The patient tolerated the procedure and anesthesia well and left the OR with her vital signs being stable vascular status intact digits 1 through 5 of the left foot. There were no apparent complications. In recovery, the patient received written and oral postop instructions as well as postoperative pain medication. The patient will ambulate partial weightbearing with an immobilization boot about her left foot. Estimated blood loss for this procedures was 10 mL and considered negligible. There were no apparent obvious complications. ESTIMATED BLOOD LOSS: 10ml MMODAL /[id number] FLORENCIO
== END 2017-04-16 09:45 | disposition home or self-care (01) ==
LOC: JD.SDS 06:54
PROVIDERS: ATTEND Podiatrist Foot & Ankle Surgery
DX: Z47.2 Encounter for removal of internal fixation device (principal); T84.84XA Pain due to internal orthopedic prosthetic devices, implants and grafts, initial encounter; J44.9 Chronic obstructive pulmonary disease, unspecified; K21.9 Gastro-esophageal reflux disease without esophagitis; I10 Essential (primary) hypertension; E78.00 Pure hypercholesterolemia, unspecified; E03.9 Hypothyroidism, unspecified; Z88.0 Allergy status to penicillin; Z88.2 Allergy status to sulfonamides; Z88.8 Allergy status to other drugs, medicaments and biological substances; Z91.09 Other allergy status, other than to drugs and biological substances; Z79.01 Long term (current) use of anticoagulants; Z79.899 Other long term (current) drug therapy; Z90.49 Acquired absence of other specified parts of digestive tract; Z90.710 Acquired absence of both cervix and uterus; Z96.659 Presence of unspecified artificial knee joint; Z96.649 Presence of unspecified artificial hip joint
CPT/HCPCS: 20680; 76000; 94664; J3010; J7120; 01480; J2704

== ENCOUNTER 2017-05-22 17:18 | Emergency (ER) | payer MEDICARE, BC ==
[2017-05-22] MEDS ORDERED: Sodium Chloride 0.9% 10 ML Syringe FLUSH PRN (17:35)
[2017-05-22] MEDS ORDERED: Ketamine 500 mg/10 ML MDV IV ONE (17:37)
[2017-05-22] MEDS ORDERED: Ondansetron 4 MG/2 ML SDV IVPUSH ONE (17:38)
[2017-05-22] MEDS ORDERED: HYDROmorphone 0.5 MG/0.5 ML Syringe IVPUSH ONE (17:41)
--- NOTE | 2017-05-22 17:54 | EDM.PDOC ---
ED HPI GENERAL MEDICAL PROBLEM - General Chief Complaint: Lower Extremity Injury/Pain Stated Complaint: [facility] Time Seen by Provider: 05/22/17 17:24 Source of Information: Reports: Patient History Limitations: Reports: No Limitations - History of Present Illness INITIAL COMMENTS - FREE TEXT/NARRATIVE: Patient is a 76-year-old female who presents to the ED complaining of dislocated left hip. Patient states she was sitting when the hip popped out. She has a history of recurrent hip dislocations with this being the ninth episode since December 2016. On Saturday she had a similar experience while rolling over in bed. She had to be transferred to [place] to have this reduced. She was discharged that evening with no complications. Pain is localized mild to moderate intensity. She has some tingling to her left foot otherwise no numbness present. She denies any additional complaints. Patient has a history of paroxysmal A. fib and is taking xarelto daily. She denies recent fall contributing to pain. Left Hip Pain Score (Numeric/FACES): 9 - Related Data Allergies Allergy/AdvReac Type Severity Reaction Status Date / Time atorvastatin calcium Allergy Cannot Verified 05/22/17 17:26 [From Lipitor] Remember codeine Allergy Hives Verified 05/22/17 17:26 eucalyptol Allergy Cannot Verified 05/22/17 17:26 [From Listerine Antiseptic] Remember ezetimibe [From Zetia] Allergy Cannot Verified 05/22/17 17:26 Remember lidocaine Allergy Cannot Verified 05/22/17 17:26 Remember menthol Allergy Cannot Verified 05/22/17 17:26 [From Listerine Antiseptic] Remember methyl salicylate Allergy Cannot Verified 05/22/17 17:26 [From Listerine Antiseptic] Remember morphine Allergy Cannot Verified 05/22/17 17:26 Remember moxifloxacin [From Avelox] Allergy Itching Verified 05/22/17 17:26 Penicillins Allergy Hives Verified 05/22/17 17:26 pravastatin sodium Allergy Cannot Verified 05/22/17 17:26 [From Pravachol] Remember silver sulfadiazine Allergy Cannot Verified 05/22/17 17:26 [From Silvadene] Remember sucralose Allergy Cannot Verified 05/22/17 17:26 [From Splenda (sucralose)] Remember Sulfa (Sulfonamide Allergy Cannot Verified 05/22/17 17:26 Antibiotics) Remember thymol Allergy Cannot Verified 05/22/17 17:26 [From Listerine Antiseptic] Remember wool Allergy Cannot Uncoded 05/22/17 17:26 Remember Home Meds: Home Meds Calcium Carbonate/Vitamin D3 [Calcium 500 + Vit D 400] 2 tab PO BID 03/03/17 [ History] Fluticasone/Salmeterol [Advair Diskus 500-50] 1 puff INH BID 03/03/17 [History] Furosemide [Lasix] 40 mg PO ASDIRECTED PRN 03/03/17 [History] Levothyroxine [Synthroid] 100 mcg PO QAM 03/03/17 [History] Magnesium Oxide 500 mg PO BID 03/03/17 [History] Montelukast [Singulair] 10 mg PO QAM 03/03/17 [History] Valsartan/Hydrochlorothiazide [Valsartan-Hctz 80-12.5 mg Tab] 1 tab PO QAM 03/03 [History] Zolpidem [Ambien] 5 mg PO QPM 03/03/17 [History] traMADol [Ultram] 50 mg PO Q4HR PRN 03/03/17 [History] Metoprolol Tartrate [Lopressor] 25 mg PO BID 04/09/17 [History] Rivaroxaban [Xarelto] 20 mg PO DAILY 04/09/17 [History] Omeprazole Magnesium [Prilosec Otc] 20 mg PO DAILY 05/22/17 [History] Past Medical History HEENT History: Reports: Allergic Rhinitis Cardiovascular History: Reports: Afib, Blood Clots/VTE/DVT, Heart Failure, High Cholesterol, Hypertension, SOB on Exertion Respiratory History: Reports: Asthma, COPD, PE Gastrointestinal History: Reports: Chronic Constipation, GERD, Hiatal Hernia, Other (See Below) Other Gastrointestinal History: stomach ulcer Genitourinary History: Reports: Urinary Incontinence COUNT ROOM CLERK History: Reports: None Musculoskeletal History: Reports: Arthritis, Other (See Below) Other Musculoskeletal History: L foot painful hardware, osteoporosis, myalgias Endocrine/Metabolic History: Reports: Hypothyroidism Hematologic History: Reports: Other (See Below) Other Hematologic History: insomnia Immunologic History: Reports: None Oncologic (Cancer) History: Reports: None Dermatologic History: Reports: Eczema - Infectious Disease History Infectious Disease History: Reports: Chicken Pox, Measles, Mumps, Shingles - Past Surgical History HEENT Surgical History: Reports: Adenoidectomy, Tonsillectomy Cardiovascular Surgical History: Reports: None Respiratory Surgical History: Reports: Other (See Below) Other Respiratory Surgeries/Procedures: Removed phlem from lung, post pneumonia GI Surgical History: Reports: Appendectomy, Cholecystectomy, Hernia, Abdominal Other GI Surgeries/Procedures: partial bowel obstrucions x2 which resolved on own. Female Surgical History: Reports: Hysterectomy, Salpingo-Oophorectomy Endocrine Surgical History: Reports: None Neurological Surgical History: Reports: Laminectomy, Other (See Below) Other Neurological Surgeries/Procedures: mata, and six screws in back 2016 Musculoskeletal Surgical History: Reports: Hip Replacement, Knee Replacement Other Musculoskeletal Surgeries/Procedures:: problems with left hip dislocations , R-knee, and bilat hip replacements Dermatological Surgical History: Reports: None Social & Family History - Family History Family Medical History: Noncontributory - Tobacco Use Smoking Status *Q: Never Smoker Second Hand Smoke Exposure: No - Caffeine Use Caffeine Use: Reports: Coffee Other Caffeine Use: 4 cups a day - Alcohol Use Days Per Week of Alcohol Use: 0 - Recreational Drug Use Recreational Drug Use: No - Living Situation & Occupation Living situation: Reports: Single 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 Denies: Numbness ED EXAM, GENERAL - Physical Exam Exam: See Below Exam Limited By: No Limitations General Appearance: Alert, WD/WN, No Apparent Distress Ears: Hearing Grossly Normal Nose: Normal Inspection Throat/Mouth: Normal Voice, No Airway Compromise Neck: Normal Inspection Respiratory/Chest: No Respiratory Distress, No Accessory Muscle Use Cardiovascular: Normal Peripheral Pulses, Regular Rate, Rhythm Peripheral Pulses: 2+: Posterior Tibial (L), Dorsalis Pedis (L) Extremities: No Pedal Edema, Normal Capillary Refill, Other (Pain to the left hip. Left leg is shortened and externally rotated. No sensory deficits distally. ) Neurological: Alert, Oriented, Normal Cognition, No Motor/Sensory Deficits Psychiatric: Normal Affect, Normal Mood Skin Exam: Warm, Dry, Intact, Normal Color Course - Vital Signs Last Recorded V/S: Last Vital Signs Temp 97.4 F 05/22/17 17:23 Pulse 78 05/22/17 20:00 Resp 16 05/22/17 20:00 BP 133/65 05/22/17 20:00 Pulse Ox 94 L 05/22/17 20:00 - Orders/Labs/Meds Meds: Medications Discontinued Medications Generic Name Dose Route Start Last Admin Trade Name Maris PRN Reason Stop Dose Admin Hydromorphone HCl 0.25 mg 05/22/17 17:41 05/22/17 17:47 Dilaudid IVPUSH 05/22/17 17:42 0.25 mg ONETIME ONE Administration Propofol Confirm 05/22/17 17:54 05/22/17 18:53 Diprivan 100 Ml Administered 05/22/17 17:55 Not Given Dose 100 mls @ as directed .ROUTE .STK-MED ONE Ketamine HCl 70 mg 05/22/17 17:37 05/22/17 18:24 Ketalar IV 05/22/17 17:38 70 mg ONETIME ONE Administration Ondansetron HCl 4 mg 05/22/17 17:38 05/22/17 17:47 Zofran IVPUSH 05/22/17 17:39 4 mg ONETIME ONE Administration Propofol 70 mg 05/22/17 17:37 05/22/17 20:15 Diprivan 20 Ml IVPUSH 05/22/17 17:38 Not Given ONETIME ONE Propofol 10 mg 05/22/17 18:24 05/22/17 18:24 Diprivan 20 Ml IVPUSH 05/22/17 18:25 10 mg ONETIME ONE Administration Propofol 20 mg 05/22/17 18:26 05/22/17 18:26 Diprivan 20 Ml IVPUSH 05/22/17 18:27 20 mg ONETIME ONE Administration Sodium Chloride 10 ml 05/22/17 17:35 05/22/17 17:45 Saline Flush FLUSH 10 ml ASDIRECTED PRN Administration Keep Vein Open - Re-Assessments/Exams Free Text/Narrative Re-Assessment/Exam: Patient on examination has shortened left leg with externally rotated. Presumably left hip is dislocated. Hip brace is in place. IV will be established and pain medications administered. X-ray of the left hip has been ordered along with Dilaudid 0.25 mg IVP, ketamine 70 mg, and propofol 70 mg. Ketamine and propofol at bedside. I have asked Dr. Hiwot Foss to help with reducing the hip dislocation since I do not have any experience with this. Hip x-ray reviewed: Total left hip replacement with dislocation present. 05/22/17 18:39 Patient underwent procedural sedation with ketamine 70mg IV and propofol 30 mgs. Post reduction film indicated let hip in proper anatomical position. Hip moved smoothly with PROM testing. Peripheral pulses remained intact. Skin pink warm and dry. Left hip brace placed after reduction. 1924 Reassessment, patient is alert with normotensive vital signs. Pain is minimal at this point. Hip remains in place. She has called for a ride. 1947 Reassessment, patients pain is minimal at this time. She is ready to be discharged home. Vital signs are stable. Will discharge patient home with instructions as documented. Departure - Departure Time of Disposition: 19:49 Disposition: Home, Self-Care 01 Condition: Good Clinical Impression: Recurrent dislocation, left hip - Discharge Information Instructions: Hip Dislocation Referrals: Savita Scherer [Primary Care Provider] - Forms: ED Department Discharge Additional Instructions: X-ray of the left hip indicated posterior dislocation. Under procedural sedation dislocation was reduced with minimal difficulty. Postreduction film revealed hip was back and anatomical position. You did receive sedative medications while in the ED. Be aware you will be at increased risk for falling due to these medications. Thus this evening suggest obtaining assistance with any standing or ambulation until drugs completely wear off which will occur over the next couple hours. Follow-up with orthopedic surgeon for definitive treatment for recurrent left hip dislocations. Return to the ED as needed for any new or worsening symptoms.
[2017-05-22] MEDS ORDERED: Propofol 200 MG/20 ML SDV IVPUSH ONE ×2 (18:24→18:26)
[2017-05-22] MEDS: Propofol 200 MG/20 ML SDV IVPUSH ONE ×2 (18:26→20:15)
[2017-05-22 21:34] VITALS: BP 133/65
--- NOTE | 2017-05-23 07:13 | CR ---
Left hip: AP and lateral views of the left hip were obtained. Comparison: Previous pelvis and left hip exam of 04/09/17. Dislocated left hip prosthesis is seen. Underlying bony structures are osteopenic but intact. Previous lower lumbar spine surgery is partially seen. Impression: 1. Dislocated left hip prosthesis. Diagnostic code #3
--- NOTE | 2017-05-23 07:13 | CR ---
Left hip: Single portable view of the left hip was obtained in AP projection. Comparison: Previous left hip study performed on the same day (5:58 PM). Previous dislocated left hip prosthesis is no longer seen with dislocation having been reduced. Right hip prosthesis is seen. Transpedicle screws are seen at L5-S1. Bony structures are osteopenic. No acute bony abnormality is identified. Impression: 1. Previous dislocation has been reduced. 2. Other incidental findings. Diagnostic code #2
== END 2017-05-22 20:00 | disposition home or self-care (01) ==
LOC: JD.ED 17:18
DX: M24.452 Recurrent dislocation, left hip (principal); I11.0 Hypertensive heart disease with heart failure; I50.9 Heart failure, unspecified; I48.91 Unspecified atrial fibrillation; E78.00 Pure hypercholesterolemia, unspecified; J45.909 Unspecified asthma, uncomplicated; J44.9 Chronic obstructive pulmonary disease, unspecified; K21.9 Gastro-esophageal reflux disease without esophagitis; M19.90 Unspecified osteoarthritis, unspecified site; M81.0 Age-related osteoporosis without current pathological fracture; E03.9 Hypothyroidism, unspecified; Z98.890 Other specified postprocedural states; Z90.49 Acquired absence of other specified parts of digestive tract; Z90.710 Acquired absence of both cervix and uterus; Z96.649 Presence of unspecified artificial hip joint; Z96.659 Presence of unspecified artificial knee joint; Z79.899 Other long term (current) drug therapy; Z88.2 Allergy status to sulfonamides; Z88.8 Allergy status to other drugs, medicaments and biological substances; Z88.5 Allergy status to narcotic agent; Z88.0 Allergy status to penicillin; Z88.1 Allergy status to other antibiotic agents; Z91.09 Other allergy status, other than to drugs and biological substances
CPT/HCPCS: 27250; 73501; 73502; 96374; 96375; 99152; 99285; J1170; J2405; J7050; 27265; 99284-25; J2704

== ENCOUNTER 2017-07-04 13:40 | Emergency (ER) | payer MEDICARE, BC ==
[2017-07-04 13:44] VITALS: BP 147/77
[2017-07-04] MEDS ORDERED: Metoclopramide 10 MG/2 ML SDV IVPUSH ONE (13:51)
[2017-07-04] MEDS ORDERED: fentaNYL 100 MCG/2 ML SDV IVPUSH ONE (13:51)
--- NOTE | 2017-07-04 13:53 | EDM.PDOC ---
ED HPI GENERAL MEDICAL PROBLEM - General Chief Complaint: Lower Extremity Injury/Pain Stated Complaint: [facility] Time Seen by Provider: 07/04/17 13:50 Source of Information: Reports: Patient History Limitations: Reports: No Limitations - History of Present Illness INITIAL COMMENTS - FREE TEXT/NARRATIVE: 76-year-old female presents to the ED with a posterior dislocated left hip. The hip is been unstable since it was replaced and she reports that is been out greater than 20 times. She was simply snapping beans today and reached to get another handful and her hip popped out. She's been wearing her brace as well. She is scheduled to have the hip redone in the third week of July this year. Current pain is 7 out of 10. She had a half of a BLT sandwich at noon today. Denies any nausea or vomiting. Onset: Today Onset Date: 07/04/17 Onset Time: 13:15 Duration: Minutes: Location: Reports: Lower Extremity, Left (Left hip popped out of place once again. It is happened 22 times before) Quality: Reports: Ache, Pressure, Throbbing Severity: Moderate Improves with: Reports: None (Current pain is 7 out of 10.) Worsens with: Reports: Movement Context: Denies: Activity, Exercise, Lifting, Sick Contact, Trauma, Other Associated Symptoms: Reports: No Other Symptoms Treatments CATERER'S AIDE: Reports: Other (see below) (None.) Left Hip Pain Score (Numeric/FACES): 6 - Related Data Allergies Allergy/AdvReac Type Severity Reaction Status Date / Time atorvastatin calcium Allergy Cannot Verified 07/04/17 13:47 [From Lipitor] Remember codeine Allergy Hives Verified 07/04/17 13:47 eucalyptol Allergy Cannot Verified 07/04/17 13:47 [From Listerine Antiseptic] Remember ezetimibe [From Zetia] Allergy Cannot Verified 07/04/17 13:47 Remember lidocaine Allergy Cannot Verified 07/04/17 13:47 Remember menthol Allergy Cannot Verified 07/04/17 13:47 [From Listerine Antiseptic] Remember methyl salicylate Allergy Cannot Verified 07/04/17 13:47 [From Listerine Antiseptic] Remember morphine Allergy Cannot Verified 07/04/17 13:47 Remember moxifloxacin [From Avelox] Allergy Itching Verified 07/04/17 13:47 Penicillins Allergy Hives Verified 07/04/17 13:47 pravastatin sodium Allergy Cannot Verified 07/04/17 13:47 [From Pravachol] Remember silver sulfadiazine Allergy Cannot Verified 07/04/17 13:47 [From Silvadene] Remember sucralose Allergy Cannot Verified 07/04/17 13:47 [From Splenda (sucralose)] Remember Sulfa (Sulfonamide Allergy Cannot Verified 07/04/17 13:47 Antibiotics) Remember thymol Allergy Cannot Verified 07/04/17 13:47 [From Listerine Antiseptic] Remember wool Allergy Cannot Uncoded 05/22/17 17:26 Remember Home Meds: Home Meds Calcium Carbonate/Vitamin D3 [Calcium 500 + Vit D 400] 2 tab PO BID 03/03/17 [ History] Fluticasone/Salmeterol [Advair Diskus 500-50] 1 puff INH BID 03/03/17 [History] Furosemide [Lasix] 40 mg PO ASDIRECTED PRN 03/03/17 [History] Levothyroxine [Synthroid] 100 mcg PO QAM 03/03/17 [History] Magnesium Oxide 500 mg PO BID 03/03/17 [History] Montelukast [Singulair] 10 mg PO QAM 03/03/17 [History] Valsartan/Hydrochlorothiazide [Valsartan-Hctz 80-12.5 mg Tab] 1 tab PO QAM 03/03 [History] Zolpidem [Ambien] 5 mg PO QPM 03/03/17 [History] traMADol [Ultram] 50 mg PO Q4HR PRN 03/03/17 [History] Metoprolol Tartrate [Lopressor] 25 mg PO BID 04/09/17 [History] Rivaroxaban [Xarelto] 20 mg PO DAILY 04/09/17 [History] Omeprazole Magnesium [Prilosec Otc] 20 mg PO DAILY 05/22/17 [History] Past Medical History HEENT History: Reports: Allergic Rhinitis Cardiovascular History: Reports: Afib, Blood Clots/VTE/DVT, Heart Failure, High Cholesterol, Hypertension, SOB on Exertion Respiratory History: Reports: Asthma, COPD, PE Gastrointestinal History: Reports: Chronic Constipation, GERD, Hiatal Hernia, Other (See Below) Other Gastrointestinal History: stomach ulcer Genitourinary History: Reports: Urinary Incontinence 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 Musculoskeletal History: Reports: Arthritis, Other (See Below) Other Musculoskeletal History: L foot painful hardware, osteoporosis, myalgias Endocrine/Metabolic History: Reports: Hypothyroidism (On levothyroxine supplement) Hematologic History: Reports: Other (See Below) Other Hematologic History: insomnia Immunologic History: Reports: None Oncologic (Cancer) History: Reports: None Dermatologic History: Reports: Eczema - Infectious Disease History Infectious Disease History: Reports: Chicken Pox, Measles, Mumps, Shingles - Past Surgical History HEENT Surgical History: Reports: Adenoidectomy, Tonsillectomy Cardiovascular Surgical History: Reports: None Respiratory Surgical History: Reports: Other (See Below) Other Respiratory Surgeries/Procedures: Removed phlem from lung, post pneumonia GI Surgical History: Reports: Appendectomy, Cholecystectomy, Hernia, Abdominal Other GI Surgeries/Procedures: partial bowel obstrucions x2 which resolved on own. Female Surgical History: Reports: Hysterectomy, Salpingo-Oophorectomy Endocrine Surgical History: Reports: None Neurological Surgical History: Reports: Laminectomy, Other (See Below) Other Neurological Surgeries/Procedures: mata, and six screws in back 2016 Musculoskeletal Surgical History: Reports: Hip Replacement, Knee Replacement Other Musculoskeletal Surgeries/Procedures:: problems with left hip dislocations , R-knee, and bilat hip replacements Dermatological Surgical History: Reports: None Social & Family History - Family History Family Medical History: Noncontributory - Tobacco Use Smoking Status *Q: Never Smoker Second Hand Smoke Exposure: No - Caffeine Use Caffeine Use: Reports: Coffee Other Caffeine Use: 4 cups a day - Alcohol Use Days Per Week of Alcohol Use: 0 - Recreational Drug Use Recreational Drug Use: No - Living Situation & Occupation Living situation: Reports: Single 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) Review of Systems - Review of Systems Review Of Systems: See Below Constitutional: Denies: Chills, Diaphoresis, Fever, Weakness Eyes: Reports: No Symptoms Ears: Reports: No Symptoms Nose: Reports: Other (Allergic rhinitis.) Mouth/Throat: Reports: No Symptoms Respiratory: Reports: Shortness of Breath (On minimal exertion) Cardiovascular: Denies: Chest Pain, Edema, Irregular Heart Rate, Palpitations, Syncope, Other GI/Abdominal: Reports: No Symptoms Genitourinary: Reports: Incontinence (Urge and stress components.) Musculoskeletal: Reports: Other (Recurrent problems with a dislocation of her left hip. Usually posterior dislocation. Is scheduled for definitive repair in mid July.) Skin: Reports: No Symptoms Neurological: Reports: No Symptoms Psychiatric: Reports: No Symptoms ED EXAM, GENERAL - Physical Exam Exam: See Below Exam Limited By: No Limitations General Appearance: Alert, Moderate Distress (Very stoic lady.) Eye Exam: Bilateral Eye: Normal Inspection Throat/Mouth: Normal Lips, Normal Oropharynx Head: Normocephalic Neck: Normal Inspection, Supple, Non-Tender, Full Range of Motion. No: Carotid Bruit, Lymphadenopathy (L), Lymphadenopathy (R) Respiratory/Chest: No Respiratory Distress, Lungs Clear, Normal Breath Sounds, No Accessory Muscle Use Cardiovascular: Normal Peripheral Pulses, Regular Rate, Rhythm, No Edema, No Murmur Peripheral Pulses: 2+: Posterior Tibial (L), Posterior Tibial (R), Dorsalis Pedis (L), Dorsalis Pedis (R) GI/Abdominal: Normal Bowel Sounds, Soft, Non-Tender, No Organomegaly Back Exam: Normal Inspection, Full Range of Motion, Other Extremities: Other (Upper extremities are normal. I can palpate the left hip prosthesis posterior in the buttock. No sciatica pain at this time.) Neurological: Alert ( in the left but talk cheek on the left side. She has no true sciatica pain rating down her leg.), Oriented, CN II-XII Intact, Normal Cognition, Normal Gait Psychiatric: Normal Affect, Normal Mood Skin Exam: Warm, Dry, Intact, Normal Color, No Rash ED TRAUMA EXTREMITY PROCEDURES - Joint Reduction Site: Hip (L) Sedation: Conscious Cedation (Sedation provided by NURSE AIDE with propofol.) Technique: Traction/Counter Traction Number of Attempts: Other: (Fourth procedure. The hip is highly unstable and easily pops back out of place.) Post-Reduction Imaging: Completely Reduced (By x-ray.) Joint Reduction Complications: No EKG INTERPRETATION EKG Date: 07/04/17 Time: 14:20 Rhythm: NSR Rate (Beats/Min): 66 Rillito: LAD-Left Rillito Deviation (Mild left axis deviation at -15.) P-Wave: Present QRS: Other (Decreased voltage throughout the limb and precordial leads. 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 QT) ST-T: Normal QT: Prolonged (QT is prolonged at 419.) Course - Vital Signs Last Recorded V/S: Last Vital Signs Temp 36.4 C 07/04/17 14:34 Pulse 65 07/04/17 14:34 Resp 18 07/04/17 14:34 BP 147/77 H 07/04/17 14:34 Pulse Ox 95 07/04/17 14:34 - Orders/Labs/Meds Orders: Active Orders 24 hr Category Date Time Status EKG Documentation Completion [RC] STAT Care 07/04/17 13:53 Active Notify Provider [RC] ASDIRECTED Care 07/04/17 15:14 Active Oxygen Therapy [RC] ASDIRECTED Care 07/04/17 15:14 Active Pulse Oximetry [RC] ASDIRECTED Care 07/04/17 15:14 Active Pelvis 1V or 2V [CR] Stat Exams 07/04/17 14:12 Taken Pelvis 1V or 2V [CR] Stat Exams 07/04/17 14:42 Taken Sodium Chloride 0.9% [Normal Saline] 1,000 ml Med 07/04/17 14:00 Active IV ASDIRECTED Medication Orders Sodium Chloride (Normal Saline) 1,000 mls @ 150 mls/hr IV ASDIRECTED JUSTICE Last Admin: 07/04/17 14:09 Dose: 150 mls/hr Labs: Laboratory Tests 07/04/17 07/04/17 Range/Units 14:03 14:03 WBC 8.95 (3.98-10.04) K/mm3 RBC 5.37 H (3.98-5.22) M/mm3 Hgb 13.2 (11.2-15.7) gm/L Hct 41.8 (34.1-44.9) % MCV 77.8 L (79.4-94.8) fl MCH 24.6 L (25.6-32.2) pg MCHC 31.6 L (32.2-35.5) g/dl RDW Std Deviation 47.5 H (36.4-46.3) fL Plt Count 280 (182-369) K/mm3 MPV 10.5 (9.4-12.3) fl Neutrophils % (Manual) 69 H (40-60) % Band Neutrophils % 0 (0-10) % Lymphocytes % (Manual) 19 L (20-40) % Atypical Lymphs % 0 % Monocytes % (Manual) 5 (2-10) % Eosinophils % (Manual) 7 H (0.7-5.8) % Basophils % (Manual) 0 L (0.1-1.2) Platelet Estimate Adequate RBC Morph Comment Normal Sodium 140 (136-145) mEq/L Potassium 3.7 (3.5-5.1) mEq/L Chloride 104 (98-107) mEq/L Carbon Dioxide 28 (21-32) mEq/L Anion Gap 11.7 (5-15) BUN 20 H (7-18) mg/dL Creatinine 1.1 H (0.55-1.02) mg/dL Est Cr Clr Drug Dosing 41.65 mL/min Estimated GFR (MDRD) 48 (>60) mL/min BUN/Creatinine Ratio 18.2 H (14-18) Glucose 128 H (83-115) mg/dL Calcium 8.8 (8.5-10.1) mg/dL Total Bilirubin 0.6 (0.2-1.0) mg/dL AST 20 (15-37) U/L ALT 20 (14-59) U/L Alkaline Phosphatase 84 (46-116) U/L Total Protein 6.4 (6.4-8.2) g/dl Albumin 3.6 (3.4-5.0) g/dl Globulin 2.8 gm/dL Albumin/Globulin Ratio 1.3 (1-2) Meds: Medications Generic Name Dose Route Start Last Admin Trade Name Maris PRN Reason Stop Dose Admin Sodium Chloride 1,000 mls @ 150 mls/hr 07/04/17 14:00 07/04/17 14:09 Normal Saline IV 150 mls/hr ASDIRECTED JUSTICE Administration Discontinued Medications Generic Name Dose Route Start Last Admin Trade Name Maris PRN Reason Stop Dose Admin Fentanyl 50 mcg 07/04/17 13:51 07/04/17 14:11 Sublimaze IVPUSH 07/04/17 13:52 50 mcg ONETIME ONE Administration Lactated Ringer's Confirm 07/04/17 14:18 Ringers, Lactated Administered 07/04/17 14:19 Dose 1,000 mls @ as directed .ROUTE .STK-MED ONE Lidocaine HCl Confirm 07/04/17 14:19 Xylocaine-Mpf 1% Administered 07/04/17 14:20 Dose 4 mls @ as directed .ROUTE .STK-MED ONE Metoclopramide HCl 7.5 mg 07/04/17 13:51 07/04/17 14:10 Reglan IVPUSH 07/04/17 13:52 7.5 mg ONETIME ONE Administration Propofol Confirm 07/04/17 14:19 Diprivan 20 Ml Administered 07/04/17 14:20 Dose 200 mg .ROUTE .STK-MED ONE Departure - Departure Time of Disposition: 15:47 Disposition: Home, Self-Care 01 Condition: Fair Clinical Impression: Recurrent dislocation, left hip - Discharge Information Forms: ED Department Discharge Additional Instructions: Evaluation in the emergency room today in regards to recurrent dislocation of the left hip. Left hip slipped out posteriorly and ended up in the buttock cheek. It was difficult to replace or to keep it in place once we reduced it. It definitely needs surgical repair as planned on July 23. Brace is to remain on at all times and less bathing. May use tramadol as you have been using in the past for pain relief as needed. - My Orders Last 24 Hours: My Active Orders 07/04/17 13:53 EKG Documentation Completion [RC] STAT 07/04/17 14:00 Sodium Chloride 0.9% [Normal Saline] 1,000 ml IV ASDIRECTED 07/04/17 14:12 Pelvis 1V or 2V [CR] Stat 07/04/17 14:42 Pelvis 1V or 2V [CR] Stat - Assessment/Plan Last 24 Hours: My Active Orders 07/04/17 13:53 EKG Documentation Completion [RC] STAT 07/04/17 14:00 Sodium Chloride 0.9% [Normal Saline] 1,000 ml IV ASDIRECTED 07/04/17 14:12 Pelvis 1V or 2V [CR] Stat 07/04/17 14:42 Pelvis 1V or 2V [CR] Stat
[2017-07-04] MEDS ORDERED: Sodium Chloride 0.9% 1,000 ML IV SCH (14:00)
--- NOTE | 2017-07-04 14:08 | PCM.PREANE ---
Preanesthetic Assessment - Anesthesia/Transfusion/Family Hx Anesthesia History: Prior Anesthesia Without Reaction Type of Anesthesia Reaction: Excessive Nausea/Vomiting Family History of Anesthesia Reaction: No Transfusion History: Prior Transfusion Without Reaction Intubation History: Unknown - Review of Systems General: No Symptoms Pulmonary: No Symptoms (COPD) Cardiovascular: No Symptoms (History of Afibrillation, HTN) Gastrointestinal: No Symptoms (GERD, history of hiatal hernia) Neurological: Gait Disturbance Other: Reports: Thyroid Problems (hypothyroid), Sinus Problem (chronic rhinitis with seasonal allergies.) - Physical Assessment NPO Status Date: 07/04/17 NPO Status Time: 12:00 Pulse: 65 O2 Sat by Pulse Oximetry: 95 Respiratory Rate: 18 Blood Pressure: 147/77 Temperature: 36.4 C Vital Signs: Last Vital Signs Temp 36.4 C 07/04/17 13:41 Pulse 65 07/04/17 13:41 Resp 18 07/04/17 13:41 BP 147/77 H 07/04/17 13:41 Pulse Ox 95 07/04/17 13:41 Height: 1.7 m Weight: 70.76 kg ASA Class: 3E Mental Status: Alert & Oriented x3 Airway Class: Mallampati = 2 Dentition: Reports: Normal Dentition, [place](s), [place] Thyro-Mental Finger Breadths: 3 Mouth Opening Finger Breadths: 3 ROM/Head Extension: Full Lungs: Clear to Auscultation, Normal Respiratory Effort Cardiovascular: Regular Rate, Regular Rhythm, No Murmurs - Imaging/EKG Impressions: EKG: SR rate= 66, old inferior infarct. - Allergies Allergies/Adverse Reactions: Allergies Allergy/AdvReac Type Severity Reaction Status Date / Time atorvastatin calcium Allergy Cannot Verified 07/04/17 13:47 [From Lipitor] Remember codeine Allergy Hives Verified 07/04/17 13:47 eucalyptol Allergy Cannot Verified 07/04/17 13:47 [From Listerine Antiseptic] Remember ezetimibe [From Zetia] Allergy Cannot Verified 07/04/17 13:47 Remember lidocaine Allergy Cannot Verified 07/04/17 13:47 Remember menthol Allergy Cannot Verified 07/04/17 13:47 [From Listerine Antiseptic] Remember methyl salicylate Allergy Cannot Verified 07/04/17 13:47 [From Listerine Antiseptic] Remember morphine Allergy Cannot Verified 07/04/17 13:47 Remember moxifloxacin [From Avelox] Allergy Itching Verified 07/04/17 13:47 Penicillins Allergy Hives Verified 07/04/17 13:47 pravastatin sodium Allergy Cannot Verified 07/04/17 13:47 [From Pravachol] Remember silver sulfadiazine Allergy Cannot Verified 07/04/17 13:47 [From Silvadene] Remember sucralose Allergy Cannot Verified 07/04/17 13:47 [From Splenda (sucralose)] Remember Sulfa (Sulfonamide Allergy Cannot Verified 07/04/17 13:47 Antibiotics) Remember thymol Allergy Cannot Verified 07/04/17 13:47 [From Listerine Antiseptic] Remember wool Allergy Cannot Uncoded 05/22/17 17:26 Remember - Anesthesia Plan Pre-Op Medication Ordered: Beta Vinod Beta Vinod: Metoprolol Med Last Dose Date: 07/04/17 Med Last Dose Time: 05:30 - Acknowledgements Anesthesia Type Planned: MAC Pt an Appropriate Candidate for the Planned Anesthesia: Yes Alternatives and Risks of Anesthesia Discussed w Pt/Guardian: Yes Pt/Guardian Understands and Agrees with Anesthesia Plan: Yes PreAnesthesia Questionnaire HEENT History: Reports: Allergic Rhinitis Cardiovascular History: Reports: Afib, Blood Clots/VTE/DVT, Heart Failure, High Cholesterol, Hypertension, SOB on Exertion Respiratory History: Reports: Asthma, COPD, PE Gastrointestinal History: Reports: Chronic Constipation, GERD, Hiatal Hernia, Other (See Below) Other Gastrointestinal History: stomach ulcer Genitourinary History: Reports: Urinary Incontinence C[employer] WORKING [employer] History: Reports: None Musculoskeletal History: Reports: Arthritis, Other (See Below) Other Musculoskeletal History: L foot painful hardware, osteoporosis, myalgias Endocrine/Metabolic History: Reports: Hypothyroidism Hematologic History: Reports: Other (See Below) Other Hematologic History: insomnia Immunologic History: Reports: None Oncologic (Cancer) History: Reports: None Dermatologic History: Reports: Eczema - Infectious Disease History Infectious Disease History: Reports: Chicken Pox, Measles, Mumps, Shingles - Past Surgical History HEENT Surgical History: Reports: Adenoidectomy, Tonsillectomy Cardiovascular Surgical History: Reports: None Respiratory Surgical History: Reports: Other (See Below) Other Respiratory Surgeries/Procedures: Removed phlem from lung, post pneumonia GI Surgical History: Reports: Appendectomy, Cholecystectomy, Hernia, Abdominal Other GI Surgeries/Procedures: partial bowel obstrucions x2 which resolved on own. Female Surgical History: Reports: Hysterectomy, Salpingo-Oophorectomy Endocrine Surgical History: Reports: None Neurological Surgical History: Reports: Laminectomy, Other (See Below) Other Neurological Surgeries/Procedures: mata, and six screws in back 2016 Musculoskeletal Surgical History: Reports: Hip Replacement, Knee Replacement Other Musculoskeletal Surgeries/Procedures:: problems with left hip dislocations , R-knee, and bilat hip replacements Dermatological Surgical History: Reports: None - SUBSTANCE USE Smoking Status *Q: Never Smoker Tobacco Use Within Last Twelve Months: No Second Hand Smoke Exposure: No Days Per Week of Alcohol Use: 0 Recreational Drug Use History: No - HOME MEDS Home Medications: Home Meds Calcium Carbonate/Vitamin D3 [Calcium 500 + Vit D 400] 2 tab PO BID 03/03/17 [ History] Fluticasone/Salmeterol [Advair Diskus 500-50] 1 puff INH BID 03/03/17 [History] Furosemide [Lasix] 40 mg PO ASDIRECTED PRN 03/03/17 [History] Levothyroxine [Synthroid] 100 mcg PO QAM 03/03/17 [History] Magnesium Oxide 500 mg PO BID 03/03/17 [History] Montelukast [Singulair] 10 mg PO QAM 03/03/17 [History] Valsartan/Hydrochlorothiazide [Valsartan-Hctz 80-12.5 mg Tab] 1 tab PO QAM 03/03 [History] Zolpidem [Ambien] 5 mg PO QPM 03/03/17 [History] traMADol [Ultram] 50 mg PO Q4HR PRN 03/03/17 [History] Metoprolol Tartrate [Lopressor] 25 mg PO BID 04/09/17 [History] Rivaroxaban [Xarelto] 20 mg PO DAILY 04/09/17 [History] Omeprazole Magnesium [Prilosec Otc] 20 mg PO DAILY 05/22/17 [History] - CURRENT (IN HOUSE) MEDS Current Meds: Current Medications Sodium Chloride (Normal Saline) 1,000 mls @ 150 mls/hr IV ASDIRECTED JUSTICE Discontinued Medications Fentanyl (Sublimaze) 50 mcg IVPUSH ONETIME ONE Stop: 07/04/17 13:52 Metoclopramide HCl (Reglan) 7.5 mg IVPUSH ONETIME ONE Stop: 07/04/17 13:52
[2017-07-04] MEDS ORDERED: Lactated Ringers 1,000 ML ONE (14:18)
[2017-07-04] MEDS ORDERED: Lidocaine 1% 4 ML ONE (14:19)
[2017-07-04] MEDS ORDERED: Propofol 200 MG/20 ML SDV ONE (14:19)
--- NOTE | 2017-07-04 15:15 | PCM48HPAN ---
Post Anesthesia Note - EVALUATION WITHIN 48HRS OF ANESTHETIC Vital Signs in Normal Range: Yes Patient Participated in Evaluation: Yes Respiratory Function Stable: Yes Airway Patent: Yes Cardiovascular Function Stable: Yes Hydration Status Stable: Yes Pain Control Satisfactory: Yes Nausea and Vomiting Control Satisfactory: Yes Mental Status Recovered: Yes
--- NOTE | 2017-07-05 11:32 | CR ---
Pelvis: AP view of the pelvis was obtained. Comparison: Previous pelvis exam of 05/22/17. Bilateral hip prosthesis are seen. Left hip prosthesis shows dislocation. Previous lower lumbar spine surgery is seen. Bony structures are osteopenic. Impression: 1. Dislocated left hip prosthesis. Other incidental findings. Diagnostic code #3
--- NOTE | 2017-07-05 11:32 | CR ---
Pelvis: AP view of the pelvis was obtained. Comparison: Previous study performed earlier on the same day. Previous dislocation shows reduction on final film. Right hip prosthesis is noted. Previous lumbar spine surgery is noted. Bony structures are osteopenic. No acute bony abnormality is identified. Impression: 1. Reduced left hip dislocation. 2. Other stable findings which are incidental. Diagnostic code #2
== END 2017-07-04 16:00 | disposition home or self-care (01) ==
LOC: JD.ED 13:40
DX: M24.452 Recurrent dislocation, left hip (principal); I48.91 Unspecified atrial fibrillation; I50.9 Heart failure, unspecified; E78.00 Pure hypercholesterolemia, unspecified; J45.909 Unspecified asthma, uncomplicated; K21.9 Gastro-esophageal reflux disease without esophagitis; Z90.710 Acquired absence of both cervix and uterus; Z88.5 Allergy status to narcotic agent; Z88.0 Allergy status to penicillin; Z88.2 Allergy status to sulfonamides; Z88.8 Allergy status to other drugs, medicaments and biological substances; Z79.899 Other long term (current) drug therapy; Z90.49 Acquired absence of other specified parts of digestive tract
CPT/HCPCS: 27265; 36415; 72170; 80053; 85025; 93005; 96361; 96374; 96375; 99285; J2765; J3010; J7040; J7120; 01200; 27252; 99284-25; J2704

== ENCOUNTER → 2022-02-22 | Day surgery (SDC) | payer MEDICARE ==
[~2022-02-22] MED LIST changes: +Lidocaine 1%/Sod Bicarbonate in NS 8.4% 1 ML Syringe IDERM PRN; +Sodium Chloride 0.9% 10 ML Syringe FLUSH SCH
== END ==
LOC: JD.SDS 09:40
PROVIDERS: ATTEND Orthopaedic Surgery
DX: I50.32 Chronic diastolic (congestive) heart failure (principal); Z53.09 Procedure and treatment not carried out because of other contraindication
CPT/HCPCS: 87641

== ENCOUNTER 2022-06-28 07:53 | Day surgery (SDC) | payer MEDICARE ==
[2022-06-28] MEDS ORDERED: fentaNYL 100 MCG/2 ML SDV IVPUSH PRN (08:10)
[2022-06-28] MEDS ORDERED: Ondansetron 4 MG/2 ML SDV IVPUSH PRN (08:10)
[2022-06-28] MEDS ORDERED: fentaNYL 100 MCG/2 ML SDV ONE (09:20)
[2022-06-28] MEDS ORDERED: Propofol 200 MG/20 ML SDV ONE (09:20)
[2022-06-28] MEDS ORDERED: Midazolam 1 MG/ML 2 ML SDV ONE (09:20)
[2022-06-28] MEDS ORDERED: Lidocaine 1% 2 ML ONE (09:21)
[2022-06-28] MEDS ORDERED: Bupivacaine 0.5% 30 ML SDV ONE (10:07)
[2022-06-28] MEDS ORDERED: Lidocaine 1% 10 ML MDV ONE (10:07)
[2022-06-28] MEDS ORDERED: Clindamycin Phosphate 600 MG/4 ML SDV ONE (10:38)
[2022-06-28 12:56] VITALS: BP 102/52; PULSE 64
== END 2022-06-28 11:55 | disposition home or self-care (01) ==
LOC: JD.SDS 07:53
PROVIDERS: ATTEND Podiatrist Foot & Ankle Surgery
DX: M89.8X7 Other specified disorders of bone, ankle and foot (principal); M21.172 Varus deformity, not elsewhere classified, left ankle; E78.5 Hyperlipidemia, unspecified; I11.0 Hypertensive heart disease with heart failure; K21.9 Gastro-esophageal reflux disease without esophagitis; E55.9 Vitamin D deficiency, unspecified; E03.9 Hypothyroidism, unspecified; F41.1 Generalized anxiety disorder; F33.1 Major depressive disorder, recurrent, moderate; M81.0 Age-related osteoporosis without current pathological fracture; I48.0 Paroxysmal atrial fibrillation; I50.32 Chronic diastolic (congestive) heart failure; J45.40 Moderate persistent asthma, uncomplicated; I73.9 Peripheral vascular disease, unspecified; I27.20 Pulmonary hypertension, unspecified; G47.00 Insomnia, unspecified; L65.9 Nonscarring hair loss, unspecified; G25.81 Restless legs syndrome; K59.09 Other constipation; Z98.890 Other specified postprocedural states; Z88.5 Allergy status to narcotic agent; Z88.0 Allergy status to penicillin; Z88.8 Allergy status to other drugs, medicaments and biological substances
CPT/HCPCS: 28124; 87641; J2250; J2704; J3010; J3490; J7120

== ENCOUNTER 2023-10-07 07:07 | Emergency (ER) | payer BC, MEDICARE, OTHER ==
[2023-10-07] MEDS ORDERED: Sodium Chloride 0.9% 10 ML Syringe FLUSH PRN (07:56)
[2023-10-07] MEDS ORDERED: Ondansetron 4 MG/2 ML SDV IVPUSH ONE (07:56)
[2023-10-07] MEDS ORDERED: HYDROmorphone 0.5 MG/0.5 ML Syringe IVPUSH ONE (07:57)
[2023-10-07] MEDS ORDERED: Sodium Chloride 0.9% 1,000 ML IV SCH (08:00)
[2023-10-07 08:31] LABS: APPEARANCE,URINE CLEAR (Clear); BILIRUBIN,URINE NEGATIVE (Negative); COLOR,URINE YELLOW (Yellow); GLUCOSE,URINE NEGATIVE (Negative); KETONES,URINE NEGATIVE (Negative); LEUKOCYTE ESTERASE,URINE NEGATIVE (Negative); NITRITE,URINE NEGATIVE (Negative); OCCULT BLOOD,URINE TRACE-INTACT (Negative); PROTEIN,URINE NEGATIVE (Negative); UROBILINOGEN,URINE 0.2 (0.2-1.0)
[2023-10-07 08:36] LABS: BASOPHILS PERCENT AUTO 0.4 % (0.0-1.0); EOSINOPHILS ABSOLUTE AUTO 0.2 K/mm3 (0.0-0.4); HEMATOCRIT 42.6 % (37.0-47.0); HEMOGLOBIN 13.9 gm/dl (12.0-16.0); IMMATURE GRAN ABSOLUTE AUTO 0.06 K/mm3 (0.00-0.05); IMMATURE GRAN PERCENT AUTO 0.7 % (0.0-0.4); LYMPHOCYTES ABSOLUTE AUTO 0.9 K/mm3 (1.0-4.8); LYMPHOCYTES PERCENT AUTO 10.6 % (24.0-44.0); MEAN CORPUSCULAR HEMOGLOBIN 28.5 pg (28.0-32.0); MEAN CORPUSCULAR HGB CONC 32.6 g/dl (32.0-36.0); MEAN CORPUSCULAR VOLUME 87.5 fl (83.0-99.0); MONOCYTES ABSOLUTE AUTO 0.6 K/mm3 (0.0-0.8); MONOCYTES PERCENT AUTO 6.7 % (0.0-8.0); NEUTROPHILS ABSOLUTE AUTO 6.8 K/mm3 (1.8-7.7); NEUTROPHILS PERCENT AUTO 79.6 % (41.0-71.0); PLATELET COUNT,PLT 273 K/mm3 (150-400); RED BLOOD CELL COUNT 4.87 M/mm3 (4.10-5.30); WHITE BLOOD CELL COUNT,WBC 8.51 K/mm3 (3.9-11.3)
[2023-10-07 08:39] LABS: BACTERIA,URINE FEW /hpf (FEW); EPITHELIAL CELLS,URINE 0-5 /hpf (0-5); MUCUS,URINE FEW /hpf (FEW); WBC,URINE 0-5 /hpf (0-5)
[2023-10-07 09:19] LABS: ALBUMIN 3.1 g/dl (3.4-5.0); BILIRUBIN TOTAL 0.7 mg/dL (0.2-1.0); BUN/CREATININE RATIO 20.8 (14-18); CREATININE 1.3 mg/dL (0.55-1.02); EST CRCL DRUG DOSING (CG) 31.33 mL/min; PROTEIN TOTAL,TP 6.3 g/dl (6.4-8.2)
[2023-10-07 10:46] VITALS: BP 118/57; PULSE 59
== END 2023-10-07 10:44 | disposition home or self-care (01) ==
LOC: JD.ED 07:07
DX: M54.50 Low back pain, unspecified (principal); I11.0 Hypertensive heart disease with heart failure; I50.9 Heart failure, unspecified; K21.9 Gastro-esophageal reflux disease without esophagitis; J44.9 Chronic obstructive pulmonary disease, unspecified; E03.9 Hypothyroidism, unspecified; Z88.5 Allergy status to narcotic agent; Z88.6 Allergy status to analgesic agent; Z88.0 Allergy status to penicillin; Z88.4 Allergy status to anesthetic agent; Z79.899 Other long term (current) drug therapy; Z90.49 Acquired absence of other specified parts of digestive tract; Z90.710 Acquired absence of both cervix and uterus
CPT/HCPCS: 36415; 74176; 80053; 81001; 83690; 85025; 96361; 96374; 96375; 99284; J1170; J2405; J3490; J7030

== ENCOUNTER 2024-07-11 03:22 | Emergency (ER) | payer OTHER ==
[2024-07-11] MEDS ORDERED: Sodium Chloride 0.9% 10 ML Syringe FLUSH PRN (03:32)
[2024-07-11 03:40] LABS: BASOPHILS PERCENT AUTO 0.4 % (0.0-1.0); EOSINOPHILS ABSOLUTE AUTO 0.1 K/mm3 (0.0-0.4); EOSINOPHILS PERCENT AUTO 1.2 % (0.0-6.0); HEMATOCRIT 42.9 % (37.0-47.0); HEMOGLOBIN 13.6 gm/dl (12.0-16.0); IMMATURE GRAN ABSOLUTE AUTO 0.05 K/mm3 (0.00-0.05); IMMATURE GRAN PERCENT AUTO 0.6 % (0.0-0.4); LYMPHOCYTES ABSOLUTE AUTO 1.1 K/mm3 (1.0-4.8); LYMPHOCYTES PERCENT AUTO 13.2 % (24.0-44.0); MEAN CORPUSCULAR HGB CONC 31.7 g/dl (32.0-36.0); MEAN CORPUSCULAR VOLUME 88.3 fl (83.0-99.0); MEAN PLATELET VOLUME 10.5 fl (9.4-12.3); MONOCYTES ABSOLUTE AUTO 0.7 K/mm3 (0.0-0.8); MONOCYTES PERCENT AUTO 8.1 % (0.0-8.0); NEUTROPHILS ABSOLUTE AUTO 6.3 K/mm3 (1.8-7.7); NEUTROPHILS PERCENT AUTO 76.5 % (41.0-71.0); PLATELET COUNT,PLT 250 K/mm3 (150-400); RED BLOOD CELL COUNT 4.86 M/mm3 (4.10-5.30); WHITE BLOOD CELL COUNT,WBC 8.18 K/mm3 (3.9-11.3)
[2024-07-11 04:11] LABS: A/G RATIO 1.2 (1-2); ALBUMIN 3.4 g/dl (3.4-5.0); ANION GAP 7.8 (5-15); BILIRUBIN TOTAL 0.7 mg/dL (0.2-1.0); BUN/CREATININE RATIO 30.7 (14-18); CALCIUM 9.2 mg/dL (8.5-10.1); CREATININE 1.5 mg/dL (0.55-1.02); EST CRCL DRUG DOSING (CG) 27.15 mL/min; POTASSIUM,K 3.8 mEq/L (3.5-5.1); PROTEIN TOTAL,TP 6.3 g/dl (6.4-8.2)
[2024-07-11] MEDS: Acetaminophen 325 MG Tab PO ONE (04:12)
[2024-07-11 05:22] LABS: CORONAVIRUS COVID-19 NAA NEGATIVE (NEGATIVE); INFLUENZA A NAA NEGATIVE (NEGATIVE); RESPIRATORY SYNCYTIAL VIR NAA NEGATIVE (NEGATIVE)
[2024-07-11 06:09] LABS: APPEARANCE,URINE CLEAR (Clear); BILIRUBIN,URINE NEGATIVE (Negative); COLOR,URINE LIGHT YELLOW (Yellow); GLUCOSE,URINE NEGATIVE (Negative); KETONES,URINE NEGATIVE (Negative); LEUKOCYTE ESTERASE,URINE NEGATIVE (Negative); NITRITE,URINE NEGATIVE (Negative); OCCULT BLOOD,URINE TRACE-INTACT (Negative); PROTEIN,URINE NEGATIVE (Negative); UROBILINOGEN,URINE 0.2 (0.2-1.0)
[2024-07-11 06:25] LABS: BACTERIA,URINE RARE /hpf (FEW); MUCUS,URINE NOT SEEN /hpf (FEW); RBC,URINE 0-5 /hpf (0-5); SQUAMOUS EPITHELIAL CELLS,UR NOT SEEN /hpf (0-5); WBC,URINE 0-5 /hpf (0-5)
[2024-07-11 06:37] VITALS: BP 105/55; PULSE 66
== END 2024-07-11 07:25 | disposition home or self-care (01) ==
LOC: JD.ED 03:22
DX: S41.111A Laceration without foreign body of right upper arm, initial encounter (principal); J18.9 Pneumonia, unspecified organism; M25.551 Pain in right hip; M25.552 Pain in left hip; M54.2 Cervicalgia; I11.0 Hypertensive heart disease with heart failure; I50.9 Heart failure, unspecified; E78.00 Pure hypercholesterolemia, unspecified; I48.91 Unspecified atrial fibrillation; J44.9 Chronic obstructive pulmonary disease, unspecified; K21.9 Gastro-esophageal reflux disease without esophagitis; E03.9 Hypothyroidism, unspecified; Z90.710 Acquired absence of both cervix and uterus; Z79.899 Other long term (current) drug therapy; Z79.01 Long term (current) use of anticoagulants; Z88.0 Allergy status to penicillin; Z88.8 Allergy status to other drugs, medicaments and biological substances; Z88.5 Allergy status to narcotic agent; Z88.6 Allergy status to analgesic agent; W01.198A Fall on same level from slipping, tripping and stumbling with subsequent striking against other object, initial encounter; Y93.01 Activity, walking, marching and hiking
CPT/HCPCS: 0241U; 36415; 70450; 71045; 72125; 72170; 72192; 73060; 73552; 73590; 80053; 81001; 82550; 83735; 85025; 93005; 99285; A9270

== ENCOUNTER 2024-10-03 12:32 | Inpatient (IN) | payer OTHER, MEDICAID ==
[2024-10-03] MEDS ORDERED: Sodium Chloride 0.9% 10 ML Syringe FLUSH PRN (12:52)
[2024-10-03] MEDS: Albuterol/Ipratropium 3.0-0.5 MG/3 ML Neb Soln NEB ONE (13:00)
[2024-10-03 13:49] LABS: BASOPHILS PERCENT AUTO 0.3 % (0.0-1.0); EOSINOPHILS PERCENT AUTO 0.3 % (0.0-6.0); HEMATOCRIT 43.8 % (37.0-47.0); IMMATURE GRAN ABSOLUTE AUTO 0.07 K/mm3 (0.00-0.05); IMMATURE GRAN PERCENT AUTO 0.6 % (0.0-0.4); LYMPHOCYTES ABSOLUTE AUTO 0.6 K/mm3 (1.0-4.8); LYMPHOCYTES PERCENT AUTO 5.2 % (24.0-44.0); MEAN CORPUSCULAR HEMOGLOBIN 31.1 pg (28.0-32.0); MEAN PLATELET VOLUME 10.4 fl (9.4-12.3); MONOCYTES ABSOLUTE AUTO 0.9 K/mm3 (0.0-0.8); MONOCYTES PERCENT AUTO 8.1 % (0.0-8.0); NEUTROPHILS ABSOLUTE AUTO 9.9 K/mm3 (1.8-7.7); NEUTROPHILS PERCENT AUTO 85.5 % (41.0-71.0); PLATELET COUNT,PLT 314 K/mm3 (150-400); WHITE BLOOD CELL COUNT,WBC 11.63 K/mm3 (3.9-11.3)
[2024-10-03 13:54] LABS: MEAN CORPUSCULAR VOLUME 97.3 fl (83.0-99.0)
[2024-10-03 14:05] LABS: LACTIC ACID 1.9 mmol/L (0.4-2.0)
[2024-10-03 14:12] LABS: A/G RATIO 0.9 (1-2); ALBUMIN 3.1 g/dl (3.4-5.0); ANION GAP 12.6 (5-15); BILIRUBIN TOTAL 0.6 mg/dL (0.2-1.0); BUN/CREATININE RATIO 27.1 (14-18); C-REACTIVE PROTEIN 9.38 mg/dL (<0.30); CALCIUM 9.2 mg/dL (8.5-10.1); CREATININE 1.4 mg/dL (0.55-1.02); EST CRCL DRUG DOSING (CG) 28.57 mL/min; MAGNESIUM 2.1 mg/dL (1.8-2.4); POTASSIUM,K 3.6 mEq/L (3.5-5.1); PROTEIN TOTAL,TP 6.5 g/dl (6.4-8.2)
[2024-10-03 14:27] LABS: APPEARANCE,URINE CLEAR (Clear); BILIRUBIN,URINE NEGATIVE (Negative); COLOR,URINE YELLOW (Yellow); GLUCOSE,URINE NEGATIVE (Negative); KETONES,URINE NEGATIVE (Negative); LEUKOCYTE ESTERASE,URINE NEGATIVE (Negative); NITRITE,URINE NEGATIVE (Negative); OCCULT BLOOD,URINE NEGATIVE (Negative); PROTEIN,URINE NEGATIVE (Negative); UROBILINOGEN,URINE 0.2 (0.2-1.0)
[2024-10-03] MEDS ORDERED: cefTRIAXone 1 GM Vial IV SCH (15:00)
[2024-10-03] MEDS: cefTRIAXone 1 GM in Sodium Chloride 0.9% 50 ML IV ONE (15:23)
[2024-10-03] MEDS: Furosemide 40 MG/4 ML VIAL IVPUSH ONE (17:45)
[2024-10-03] MEDS: Doxycycline 100 MG in Sodium Chloride 0.9% 100 ML IV SCH (17:47)
[2024-10-03] MEDS: Cefepime 1 GM in Sodium Chloride 0.9% 50 ML IV SCH (17:53)
[2024-10-03] MEDS: Cefepime 1 GM Vial IV SCH (19:32)
[2024-10-03] MEDS: cefTRIAXone 1 GM Vial IVPUSH SCH (19:37)
[2024-10-03] MEDS: rOPINIRole 1 MG Tab PO SCH (21:49)
[2024-10-03] MEDS: Rivaroxaban 15 MG Tab PO ONE (21:49)
[2024-10-04] MEDS: Acetaminophen 325 MG Tab PO PRN (02:39)
[2024-10-04 06:02] LABS: BASOPHILS PERCENT AUTO 0.2 % (0.0-1.0); EOSINOPHILS PERCENT AUTO 0.2 % (0.0-6.0); HEMATOCRIT 41.3 % (37.0-47.0); HEMOGLOBIN 13.4 gm/dl (12.0-16.0); IMMATURE GRAN ABSOLUTE AUTO 0.09 K/mm3 (0.00-0.05); IMMATURE GRAN PERCENT AUTO 0.7 % (0.0-0.4); LYMPHOCYTES ABSOLUTE AUTO 0.7 K/mm3 (1.0-4.8); MEAN CORPUSCULAR HEMOGLOBIN 31.3 pg (28.0-32.0); MEAN CORPUSCULAR HGB CONC 32.4 g/dl (32.0-36.0); MEAN CORPUSCULAR VOLUME 96.5 fl (83.0-99.0); MEAN PLATELET VOLUME 10.6 fl (9.4-12.3); MONOCYTES ABSOLUTE AUTO 1.1 K/mm3 (0.0-0.8); MONOCYTES PERCENT AUTO 8.1 % (0.0-8.0); NEUTROPHILS ABSOLUTE AUTO 11.4 K/mm3 (1.8-7.7); NEUTROPHILS PERCENT AUTO 85.8 % (41.0-71.0); PLATELET COUNT,PLT 286 K/mm3 (150-400); RED BLOOD CELL COUNT 4.28 M/mm3 (4.10-5.30); WHITE BLOOD CELL COUNT,WBC 13.29 K/mm3 (3.9-11.3)
[2024-10-04 06:22] LABS: A/G RATIO 0.8 (1-2); ALBUMIN 2.5 g/dl (3.4-5.0); ANION GAP 8.3 (5-15); BILIRUBIN TOTAL 0.9 mg/dL (0.2-1.0); BUN/CREATININE RATIO 28.3 (14-18); C-REACTIVE PROTEIN 10.7 mg/dL (<0.30); CALCIUM 8.7 mg/dL (8.5-10.1); CREATININE 1.2 mg/dL (0.55-1.02); EST CRCL DRUG DOSING (CG) 33.33 mL/min; PROTEIN TOTAL,TP 5.5 g/dl (6.4-8.2)
[2024-10-04 06:32] LABS: POTASSIUM,K 2.3 mEq/L (3.5-5.1)
[2024-10-04] MEDS: Potassium Chloride 20 MEQ Tab.ER PO ONE (07:51)
[2024-10-04] MEDS: Sodium Chloride 0.9% 1,000 ML IV SCH (07:53)
[2024-10-04] MEDS: Potassium Chloride 10 MEQ in Premix Bag 1 BAG IV SCH (07:54)
[2024-10-04 08:30] LABS: TSH 1.496 uIU/mL (0.358-3.74)
[2024-10-04] MEDS: Sennosides/Docusate Sodium 50-8.6 MG Tab PO SCH (09:23)
[2024-10-04] MEDS: Spironolactone 25 MG Tab PO SCH (09:23)
[2024-10-04] MEDS: rOPINIRole 1 MG Tab PO SCH (09:23)
[2024-10-04] MEDS: oxyCODONE 5 MG Tab PO PRN (12:39)
[2024-10-04] MEDS: VILANTER INH SCH (13:21)
[2024-10-04] MEDS: UMECLIDIN INH SCH (13:21)
[2024-10-04] MEDS: FLUTICASONE INH SCH (13:21)
[2024-10-04] MEDS: Metoprolol Succinate 25 MG Tab.ER PO SCH (13:31)
[2024-10-04] MEDS: Metoprolol Tartrate 5 MG/5 ML SDV IVPUSH ONE ×2 (14:21→18:49)
[2024-10-04] MEDS: Acetaminophen 325 MG Tab PO SCH (15:31)
[2024-10-04] MEDS: Bumetanide 1 MG/4 ML MDV IVPUSH ONE (17:09)
[2024-10-04] MEDS: Metoprolol Tartrate 25 MG Tab PO SCH (20:22)
[2024-10-04] MEDS: Bumetanide 1 MG Tab PO SCH (20:22)
[2024-10-04] MEDS: Rivaroxaban 15 MG Tab PO SCH (20:22)
[2024-10-04] MEDS ORDERED: rOPINIRole 1 MG Tab PO SCH (21:00)
[2024-10-04] MEDS: Montelukast 10 MG Tab PO SCH (21:34)
[2024-10-05 06:29] LABS: A/G RATIO 0.7 (1-2); ALBUMIN 2.3 g/dl (3.4-5.0); ANION GAP 8.5 (5-15); BILIRUBIN TOTAL 0.9 mg/dL (0.2-1.0); C-REACTIVE PROTEIN 19.69 mg/dL (<0.30); CALCIUM 8.3 mg/dL (8.5-10.1); CREATININE 1.2 mg/dL (0.55-1.02); EST CRCL DRUG DOSING (CG) 33.33 mL/min; PROTEIN TOTAL,TP 5.5 g/dl (6.4-8.2)
[2024-10-05 06:33] LABS: POTASSIUM,K 2.5 mEq/L (3.5-5.1)
[2024-10-05 06:34] LABS: BASOPHILS PERCENT AUTO 0.2 % (0.0-1.0); EOSINOPHILS ABSOLUTE AUTO 0.1 K/mm3 (0.0-0.4); EOSINOPHILS PERCENT AUTO 0.4 % (0.0-6.0); HEMATOCRIT 39.2 % (37.0-47.0); IMMATURE GRAN ABSOLUTE AUTO 0.07 K/mm3 (0.00-0.05); IMMATURE GRAN PERCENT AUTO 0.6 % (0.0-0.4); LYMPHOCYTES ABSOLUTE AUTO 0.6 K/mm3 (1.0-4.8); LYMPHOCYTES PERCENT AUTO 5.2 % (24.0-44.0); MEAN CORPUSCULAR HEMOGLOBIN 30.7 pg (28.0-32.0); MEAN CORPUSCULAR HGB CONC 33.2 g/dl (32.0-36.0); MEAN PLATELET VOLUME 10.8 fl (9.4-12.3); MONOCYTES ABSOLUTE AUTO 0.9 K/mm3 (0.0-0.8); MONOCYTES PERCENT AUTO 7.6 % (0.0-8.0); NEUTROPHILS ABSOLUTE AUTO 9.8 K/mm3 (1.8-7.7); PLATELET COUNT,PLT 275 K/mm3 (150-400); RED BLOOD CELL COUNT 4.23 M/mm3 (4.10-5.30); WHITE BLOOD CELL COUNT,WBC 11.34 K/mm3 (3.9-11.3)
[2024-10-05 06:36] LABS: MEAN CORPUSCULAR VOLUME 92.7 fl (83.0-99.0)
[2024-10-05] MEDS ORDERED: Magnesium Sulfate (4.06 MEQ/ML) 5 GM/10 ML SDV IV ONE (06:45)
[2024-10-05] MEDS: Potassium Chloride 10 MEQ in Premix Bag 1 BAG IV SCH (07:09)
[2024-10-05] MEDS: Levothyroxine 100 MCG Tab PO SCH (07:10)
[2024-10-05] MEDS: Potassium Chloride 20 MEQ Tab.ER PO SCH (08:00)
[2024-10-05] MEDS: Bumetanide 1 MG Tab PO SCH (08:01)
[2024-10-05] MEDS: Albuterol/Ipratropium 3.0-0.5 MG/3 ML Neb Soln NEB SCH (10:18)
[2024-10-05] MEDS: Cefepime 2 GM Vial IVPUSH SCH (18:26)
[2024-10-05] MEDS ORDERED: Metoprolol Succinate 25 MG Tab.ER PO SCH (21:00)
[2024-10-05] MEDS: Polyethylene Glycol 3350 Powder 17 GM Packet PO PRN (21:20)
[2024-10-05] MEDS: Metoprolol Succinate 50 MG Tab.ER PO SCH (21:23)
[2024-10-06] MEDS: Potassium Chloride 10 MEQ in Premix Bag 1 BAG IV SCH (00:10)
[2024-10-06 04:47] LABS: BASOPHILS PERCENT AUTO 0.2 % (0.0-1.0); EOSINOPHILS ABSOLUTE AUTO 0.1 K/mm3 (0.0-0.4); EOSINOPHILS PERCENT AUTO 0.9 % (0.0-6.0); HEMATOCRIT 42.9 % (37.0-47.0); HEMOGLOBIN 13.6 gm/dl (12.0-16.0); IMMATURE GRAN ABSOLUTE AUTO 0.09 K/mm3 (0.00-0.05); LYMPHOCYTES ABSOLUTE AUTO 0.6 K/mm3 (1.0-4.8); LYMPHOCYTES PERCENT AUTO 6.7 % (24.0-44.0); MEAN CORPUSCULAR HEMOGLOBIN 30.8 pg (28.0-32.0); MEAN CORPUSCULAR HGB CONC 31.7 g/dl (32.0-36.0); MEAN CORPUSCULAR VOLUME 97.3 fl (83.0-99.0); MEAN PLATELET VOLUME 11.2 fl (9.4-12.3); MONOCYTES ABSOLUTE AUTO 0.8 K/mm3 (0.0-0.8); MONOCYTES PERCENT AUTO 8.2 % (0.0-8.0); NEUTROPHILS ABSOLUTE AUTO 7.7 K/mm3 (1.8-7.7); PLATELET COUNT,PLT 289 K/mm3 (150-400); RED BLOOD CELL COUNT 4.41 M/mm3 (4.10-5.30); WHITE BLOOD CELL COUNT,WBC 9.27 K/mm3 (3.9-11.3)
[2024-10-06 05:12] LABS: A/G RATIO 0.7 (1-2); ALBUMIN 2.3 g/dl (3.4-5.0); ANION GAP 12.7 (5-15); BILIRUBIN TOTAL 0.6 mg/dL (0.2-1.0); BUN/CREATININE RATIO 32.7 (14-18); C-REACTIVE PROTEIN 16.9 mg/dL (<0.30); CREATININE 1.1 mg/dL (0.55-1.02); EST CRCL DRUG DOSING (CG) 36.36 mL/min; MAGNESIUM 2.1 mg/dL (1.8-2.4); POTASSIUM,K 3.7 mEq/L (3.5-5.1); PROTEIN TOTAL,TP 5.8 g/dl (6.4-8.2)
[2024-10-06] MEDS: Levothyroxine 100 MCG Tab PO SCH (06:06)
[2024-10-06] MEDS: guaiFENesin 600 MG Tab.ER PO SCH (11:59)
[2024-10-06] MEDS: Albuterol/Ipratropium 3.0-0.5 MG/3 ML Neb Soln NEB SCH (13:15)
[2024-10-06] MEDS: Metoprolol Tartrate 25 MG Tab PO ONE (15:30)
[2024-10-06] MEDS: Metoprolol Tartrate 5 MG/5 ML SDV IVPUSH ONE (15:30)
[2024-10-07 05:18] LABS: A/G RATIO 0.7 (1-2); BILIRUBIN TOTAL 0.6 mg/dL (0.2-1.0); BUN/CREATININE RATIO 31.8 (14-18); C-REACTIVE PROTEIN 7.92 mg/dL (<0.30); CALCIUM 8.1 mg/dL (8.5-10.1); CREATININE 1.1 mg/dL (0.55-1.02); EST CRCL DRUG DOSING (CG) 36.36 mL/min; POTASSIUM,K 3.2 mEq/L (3.5-5.1); PROTEIN TOTAL,TP 5.1 g/dl (6.4-8.2)
[2024-10-07 05:33] LABS: ANION GAP 11.2 (5-15)
[2024-10-07] MEDS: Sodium Chloride 0.9% 250 ML IV SCH (08:55)
[2024-10-07] MEDS: Potassium Chloride 20 MEQ Tab.ER PO SCH (08:56)
[2024-10-07] MEDS: Doxycycline Monohydrate 100 MG Cap PO SCH (20:28)
[2024-10-07] MEDS: Bisacodyl 5 MG Tab PO SCH (21:04)
[2024-10-07] MEDS: Cyclobenzaprine 10 MG Tab PO PRN (21:04)
[2024-10-07] MEDS: Metoprolol Tartrate 25 MG Tab PO ONE (23:56)
[2024-10-07] MEDS: Metoprolol Tartrate 5 MG/5 ML SDV IVPUSH ONE (23:59)
[2024-10-08 05:05] LABS: A/G RATIO 0.7 (1-2); ALBUMIN 2.2 g/dl (3.4-5.0); ANION GAP 8.5 (5-15); BILIRUBIN TOTAL 0.6 mg/dL (0.2-1.0); C-REACTIVE PROTEIN 4.72 mg/dL (<0.30); CALCIUM 8.4 mg/dL (8.5-10.1); CREATININE 1.2 mg/dL (0.55-1.02); EST CRCL DRUG DOSING (CG) 33.33 mL/min; MAGNESIUM 1.9 mg/dL (1.8-2.4); POTASSIUM,K 3.5 mEq/L (3.5-5.1); PROTEIN TOTAL,TP 5.6 g/dl (6.4-8.2)
[2024-10-08] MEDS: Metoprolol Succinate 50 MG Tab.ER PO SCH ×2 (08:15→20:44)
[2024-10-08] MEDS: Ondansetron 4 MG/2 ML SDV IVPUSH PRN (08:26)
[2024-10-08] MEDS: Metoprolol Tartrate 5 MG/5 ML SDV IV ONE (08:31)
[2024-10-08] MEDS: Metoprolol Tartrate 5 MG in Sodium Chloride 0.9% 50 ML IV ONE (19:41)
[2024-10-09 05:19] LABS: A/G RATIO 0.7 (1-2); ALBUMIN 2.3 g/dl (3.4-5.0); ANION GAP 13.9 (5-15); BILIRUBIN TOTAL 0.5 mg/dL (0.2-1.0); BUN/CREATININE RATIO 34.2 (14-18); C-REACTIVE PROTEIN 2.41 mg/dL (<0.30); CALCIUM 8.3 mg/dL (8.5-10.1); CREATININE 1.2 mg/dL (0.55-1.02); EST CRCL DRUG DOSING (CG) 33.33 mL/min; MAGNESIUM 1.9 mg/dL (1.8-2.4); POTASSIUM,K 3.9 mEq/L (3.5-5.1); PROTEIN TOTAL,TP 5.6 g/dl (6.4-8.2)
[2024-10-09] MEDS: Pantoprazole 40 MG Tab.CR PO SCH (08:50)
[2024-10-09] MEDS: Carboxymethylcellulose Sodium 1% Ophth Gel 15 ML Bottle EYEBOTH SCH (13:47)
[2024-10-10 06:27] LABS: A/G RATIO 0.7 (1-2); ALBUMIN 2.6 g/dl (3.4-5.0); ANION GAP 14.7 (5-15); BILIRUBIN TOTAL 0.6 mg/dL (0.2-1.0); BUN/CREATININE RATIO 36.7 (14-18); C-REACTIVE PROTEIN 1.63 mg/dL (<0.30); CALCIUM 8.3 mg/dL (8.5-10.1); CREATININE 1.2 mg/dL (0.55-1.02); EST CRCL DRUG DOSING (CG) 33.33 mL/min; POTASSIUM,K 3.7 mEq/L (3.5-5.1); PROTEIN TOTAL,TP 6.1 g/dl (6.4-8.2)
[2024-10-10] MEDS: Calcium Carbonate 500 MG Tab.Chew PO PRN (14:07)
[2024-10-10] MEDS ORDERED: Metoprolol Tartrate 5 MG/5 ML SDV IVPUSH PRN (14:55)
[2024-10-11] MEDS: Diclofenac Sodium 1% Gel 100 GM Tube TOP PRN (08:52)
[2024-10-11] MEDS: Albuterol/Ipratropium 3.0-0.5 MG/3 ML Neb Soln NEB PRN (21:20)
[2024-10-12 06:20] LABS: ANION GAP 10.4 (5-15); BUN/CREATININE RATIO 33.8 (14-18); C-REACTIVE PROTEIN 0.68 mg/dL (<0.30); CALCIUM 8.3 mg/dL (8.5-10.1); CREATININE 1.3 mg/dL (0.55-1.02); EST CRCL DRUG DOSING (CG) 30.77 mL/min; MAGNESIUM 1.9 mg/dL (1.8-2.4); PHOSPHORUS 3.2 mg/dL (2.6-4.7); POTASSIUM,K 4.4 mEq/L (3.5-5.1)
[2024-10-12 15:26] VITALS: BP 107/80; PULSE 124
== END 2024-10-12 15:10 | DRG 193 ==
LOC: JD.ED 12:32 → UNDOADMIN 16:07 → JD.MS 16:07
PROVIDERS: ADMIT Family Medicine; ATTEND Student in an Organized Health Care Education/Training Program
DX: J18.9 Pneumonia, unspecified organism (principal); J96.01 Acute respiratory failure with hypoxia; S42.401A Unspecified fracture of lower end of right humerus, initial encounter for closed fracture; J44.0 Chronic obstructive pulmonary disease with (acute) lower respiratory infection; N17.9 Acute kidney failure, unspecified; I13.0 Hypertensive heart and chronic kidney disease with heart failure and stage 1 through stage 4 chronic kidney disease, or unspecified chronic kidney disease; I50.9 Heart failure, unspecified; K59.09 Other constipation; E78.00 Pure hypercholesterolemia, unspecified; K21.9 Gastro-esophageal reflux disease without esophagitis; M19.90 Unspecified osteoarthritis, unspecified site; E03.9 Hypothyroidism, unspecified; Z96.649 Presence of unspecified artificial hip joint; Z96.659 Presence of unspecified artificial knee joint; Z66 Do not resuscitate; N18.30 Chronic kidney disease, stage 3 unspecified; E87.6 Hypokalemia; S52.131A Displaced fracture of neck of right radius, initial encounter for closed fracture; W19.XXXA Unspecified fall, initial encounter; I48.0 Paroxysmal atrial fibrillation; I27.20 Pulmonary hypertension, unspecified; Z88.8 Allergy status to other drugs, medicaments and biological substances; Z88.5 Allergy status to narcotic agent; Z88.0 Allergy status to penicillin; Z79.01 Long term (current) use of anticoagulants; Z79.51 Long term (current) use of inhaled steroids; Z79.899 Other long term (current) drug therapy; Z86.711 Personal history of pulmonary embolism; Z86.0100 Personal history of colon polyps, unspecified; Z87.19 Personal history of other diseases of the digestive system; Z90.89 Acquired absence of other organs; Z90.49 Acquired absence of other specified parts of digestive tract; Z90.79 Acquired absence of other genital organ(s); Z90.710 Acquired absence of both cervix and uterus; Z98.890 Other specified postprocedural states
CPT/HCPCS: 36415; 71045; 71045-26; 73080-26-RT; 73080-RT; 80048; 80053; 81003; 83605; 83735; 83880; 84100; 84443; 84484; 85025; 86140; 87040; 87428-QW; 93005; 93010; 93306; 94640; 94667; 94668; 94760; 94761; 96365; 97110-GP; 97112-GP; 97116-GP; 97161-GP; 97530-GP; 99223; 99231; 99232; 99233; 99239; 99284; 99285-25; A9270-GY; J0692; J0696; J1940; J2405; J3475; J3480; J3490; J7030; J7050; J7620-GY

== ENCOUNTER 2024-10-29 09:01 | Observation (INO) | payer MEDICARE, OTHER ==
[2024-10-29 10:01] LABS: BASOPHILS PERCENT AUTO 0.1 % (0.0-1.0); EOSINOPHILS PERCENT AUTO 0.3 % (0.0-6.0); HEMATOCRIT 41.4 % (37.0-47.0); IMMATURE GRAN PERCENT AUTO 0.7 % (0.0-0.4); LYMPHOCYTES ABSOLUTE AUTO 0.3 K/mm3 (1.0-4.8); LYMPHOCYTES PERCENT AUTO 2.4 % (24.0-44.0); MEAN CORPUSCULAR HEMOGLOBIN 30.7 pg (28.0-32.0); MEAN CORPUSCULAR HGB CONC 31.4 g/dl (32.0-36.0); MEAN CORPUSCULAR VOLUME 97.9 fl (83.0-99.0); MEAN PLATELET VOLUME 10.3 fl (9.4-12.3); MONOCYTES ABSOLUTE AUTO 0.7 K/mm3 (0.0-0.8); MONOCYTES PERCENT AUTO 5.5 % (0.0-8.0); NEUTROPHILS ABSOLUTE AUTO 12.2 K/mm3 (1.8-7.7); PLATELET COUNT,PLT 277 K/mm3 (150-400); RED BLOOD CELL COUNT 4.23 M/mm3 (4.10-5.30); WHITE BLOOD CELL COUNT,WBC 13.39 K/mm3 (3.9-11.3)
[2024-10-29] MEDS: Furosemide 40 MG/4 ML VIAL IVPUSH ONE (10:31)
[2024-10-29 10:34] LABS: A/G RATIO 1.2 (1-2); ALBUMIN 3.4 g/dl (3.4-5.0); ANION GAP 14.7 (5-15); BILIRUBIN TOTAL 0.6 mg/dL (0.2-1.0); CALCIUM 8.4 mg/dL (8.5-10.1); CREATININE 1.6 mg/dL (0.55-1.02); MAGNESIUM 2.3 mg/dL (1.8-2.4); POTASSIUM,K 4.7 mEq/L (3.5-5.1); PROTEIN TOTAL,TP 6.3 g/dl (6.4-8.2)
[2024-10-29 12:16] LABS: SLIDE REVIEW ABNORMAL SMEAR
[2024-10-29] MEDS: Diltiazem 25 MG/5 ML SDV IVPUSH ONE (16:05)
[2024-10-29] MEDS ORDERED: HYDROCODONE PO PRN (19:30)
[2024-10-29] MEDS ORDERED: Albuterol 6.7 GM Inhaler INH PRN (19:30)
[2024-10-29] MEDS ORDERED: Diclofenac Sodium 1% Gel 100 GM Tube TOP PRN (19:30)
[2024-10-29] MEDS ORDERED: Carboxymethylcellulose Sodium 1% Ophth Gel 15 ML Bottle EYEBOTH PRN (19:30)
[2024-10-29] MEDS ORDERED: ACETAMINOPHEN PO PRN (19:30)
[2024-10-29] MEDS ORDERED: [UNRECOGNIZED DRUG - OTHER] PO PRN (19:30)
[2024-10-29] MEDS ORDERED: oxyCODONE 5 MG Tab PO PRN (19:50)
[2024-10-29] MEDS ORDERED: Ondansetron 4 MG/2 ML SDV IV PRN (19:50)
[2024-10-29] MEDS ORDERED: Naloxone 0.4 MG/ML SDV IVPUSH PRN (19:50)
[2024-10-29] MEDS ORDERED: 50% Dextrose in Water 50 ML Syringe IVPUSH PRN (19:54)
[2024-10-29] MEDS: Albuterol/Ipratropium 3.0-0.5 MG/3 ML Neb Soln INH PRN (20:34)
[2024-10-29] MEDS: Melatonin 3 MG Tab PO PRN (21:46)
[2024-10-29] MEDS: rOPINIRole 1 MG Tab PO SCH (21:46)
[2024-10-29] MEDS: Rivaroxaban 15 MG Tab PO SCH (21:46)
[2024-10-29] MEDS: Pantoprazole 40 MG Tab.CR PO SCH (21:47)
[2024-10-29] MEDS: Montelukast 10 MG Tab PO SCH (21:47)
[2024-10-29] MEDS: Sennosides/Docusate Sodium 50-8.6 MG Tab PO PRN (21:48)
[2024-10-29] MEDS: Metoprolol Succinate 50 MG Tab.ER PO SCH (21:50)
[2024-10-29] MEDS: Morphine 2 MG/ML SYRINGE IVPUSH PRN (22:04)
[2024-10-29 22:26] LABS: APPEARANCE,URINE CLEAR (Clear); BILIRUBIN,URINE NEGATIVE (Negative); COLOR,URINE YELLOW (Yellow); GLUCOSE,URINE NEGATIVE (Negative); KETONES,URINE NEGATIVE (Negative); LEUKOCYTE ESTERASE,URINE TRACE (Negative); NITRITE,URINE NEGATIVE (Negative); OCCULT BLOOD,URINE NEGATIVE (Negative); PROTEIN,URINE NEGATIVE (Negative); UROBILINOGEN,URINE 0.2 (0.2-1.0)
[2024-10-29 22:32] LABS: BACTERIA,URINE FEW /hpf (FEW); MUCUS,URINE FEW /hpf (FEW); RBC,URINE 0-5 /hpf (0-5); SQUAMOUS EPITHELIAL CELLS,UR 0-5 /hpf (0-5); WBC,URINE 0-5 /hpf (0-5)
[2024-10-29] MEDS: Insulin Lispro 100 Unit/ML 3 ML KwikPen SUBCUT SCH (22:33)
[2024-10-30 04:54] LABS: BASOPHILS PERCENT AUTO 0.1 % (0.0-1.0); EOSINOPHILS PERCENT AUTO 0.2 % (0.0-6.0); HEMATOCRIT 41.6 % (37.0-47.0); HEMOGLOBIN 13.1 gm/dl (12.0-16.0); IMMATURE GRAN ABSOLUTE AUTO 0.06 K/mm3 (0.00-0.05); IMMATURE GRAN PERCENT AUTO 0.5 % (0.0-0.4); LYMPHOCYTES ABSOLUTE AUTO 0.6 K/mm3 (1.0-4.8); LYMPHOCYTES PERCENT AUTO 4.9 % (24.0-44.0); MEAN CORPUSCULAR HEMOGLOBIN 30.5 pg (28.0-32.0); MEAN CORPUSCULAR HGB CONC 31.5 g/dl (32.0-36.0); MEAN PLATELET VOLUME 10.8 fl (9.4-12.3); MONOCYTES ABSOLUTE AUTO 1.1 K/mm3 (0.0-0.8); NEUTROPHILS PERCENT AUTO 85.3 % (41.0-71.0); PLATELET COUNT,PLT 265 K/mm3 (150-400); RED BLOOD CELL COUNT 4.29 M/mm3 (4.10-5.30); WHITE BLOOD CELL COUNT,WBC 11.71 K/mm3 (3.9-11.3)
[2024-10-30 05:25] LABS: A/G RATIO 1.3 (1-2); ALBUMIN 3.4 g/dl (3.4-5.0); BILIRUBIN TOTAL 0.9 mg/dL (0.2-1.0); BUN/CREATININE RATIO 27.1 (14-18); C-REACTIVE PROTEIN 0.67 mg/dL (<0.30); CALCIUM 8.7 mg/dL (8.5-10.1); CREATININE 1.4 mg/dL (0.55-1.02); EST CRCL DRUG DOSING (CG) 28.57 mL/min; MAGNESIUM 2.4 mg/dL (1.8-2.4); PROTEIN TOTAL,TP 6.1 g/dl (6.4-8.2); TSH 2.008 uIU/mL (0.358-3.74)
[2024-10-30 08:26] LABS: ANION GAP 14.2 (5-15); POTASSIUM,K 4.2 mEq/L (3.5-5.1)
[2024-10-30] MEDS: Levothyroxine 100 MCG Tab PO SCH (08:32)
[2024-10-30] MEDS: Bumetanide 1 MG Tab PO SCH ×2 (08:32→13:49)
[2024-10-30] MEDS: Spironolactone 25 MG Tab PO SCH (08:32)
[2024-10-30] MEDS: Metoprolol Succinate 50 MG Tab.ER PO SCH (08:32)
[2024-10-30] MEDS: Acetaminophen 325 MG Tab PO PRN (08:32)
[2024-10-30] MEDS: rOPINIRole 1 MG Tab PO SCH (08:32)
[2024-10-30 08:56] LABS: HEMOGLOBIN A1C 7.3 %
[2024-10-30] MEDS ORDERED: oxyCODONE 5 MG Tab PO PRN (12:57)
[2024-10-30] MEDS: oxyCODONE 5 MG Tab PO PRN (13:47)
[2024-10-30] MEDS: Bisacodyl 5 MG Tab PO PRN (13:49)
[2024-10-30] MEDS: Bisacodyl 5 MG Tab PO SCH (13:50)
[2024-10-30] MEDS: Zolpidem 5 MG Tab PO SCH ×2 (17:50→21:13)
[2024-10-30] MEDS: Cyclobenzaprine 10 MG Tab PO PRN (17:56)
[2024-10-30] MEDS: Metoprolol Tartrate 5 MG/5 ML SDV IVPUSH PRN (18:45)
[2024-10-31] MEDS: Potassium Chloride 20 MEQ Tab.ER PO SCH (08:31)
[2024-10-31] MEDS: Metolazone 2.5 MG Tab PO SCH (09:10)
[2024-10-31 12:01] VITALS: PULSE 144
[2024-10-31 13:08] VITALS: BP 109/71
[2024-10-31] MEDS: Fluticasone/Umeclidin/Vilanter [Trelegy Ellipta 100-62.5- INH SCH (15:40)
== END 2024-10-31 12:35 | disposition home or self-care (01) ==
LOC: JD.ED 09:01 → JD.MS 15:46
PROVIDERS: ADMIT Student in an Organized Health Care Education/Training Program; ATTEND Student in an Organized Health Care Education/Training Program
DX: I11.0 Hypertensive heart disease with heart failure (principal); I50.9 Heart failure, unspecified; N17.9 Acute kidney failure, unspecified; R74.01 Elevation of levels of liver transaminase levels; D72.829 Elevated white blood cell count, unspecified; G25.81 Restless legs syndrome; R73.9 Hyperglycemia, unspecified; I48.91 Unspecified atrial fibrillation; E78.00 Pure hypercholesterolemia, unspecified; E03.9 Hypothyroidism, unspecified; K21.9 Gastro-esophageal reflux disease without esophagitis; Z88.8 Allergy status to other drugs, medicaments and biological substances; Z88.5 Allergy status to narcotic agent; Z88.0 Allergy status to penicillin; Z79.890 Hormone replacement therapy; Z79.899 Other long term (current) drug therapy; Z79.01 Long term (current) use of anticoagulants
CPT/HCPCS: 36415; 71045; 80053; 81001; 82947; 83036; 83735; 83880; 84100; 84443; 84484; 85025; 86140; 87641; 93005; 94640; 94667; 94760; 96374; 97161; 97530; 99285; A9270; J1815; J1940; J2270; J3490; 93010; 96375; 97110-GP; G0378; J7620-GY

== ENCOUNTER 2024-11-16 15:33 | Inpatient (IN) | payer MEDICARE ==
[2024-11-16 16:38] LABS: BASOPHILS PERCENT AUTO 0.2 % (0.0-1.0); HEMATOCRIT 49.6 % (37.0-47.0); HEMOGLOBIN 16.4 gm/dl (12.0-16.0); IMMATURE GRAN ABSOLUTE AUTO 0.04 K/mm3 (0.00-0.05); IMMATURE GRAN PERCENT AUTO 0.6 % (0.0-0.4); LYMPHOCYTES ABSOLUTE AUTO 0.7 K/mm3 (1.0-4.8); LYMPHOCYTES PERCENT AUTO 10.6 % (24.0-44.0); MEAN CORPUSCULAR HGB CONC 33.1 g/dl (32.0-36.0); MEAN CORPUSCULAR VOLUME 90.7 fl (83.0-99.0); MEAN PLATELET VOLUME 10.3 fl (9.4-12.3); MONOCYTES ABSOLUTE AUTO 0.5 K/mm3 (0.0-0.8); MONOCYTES PERCENT AUTO 8.6 % (0.0-8.0); PLATELET COUNT,PLT 235 K/mm3 (150-400); RED BLOOD CELL COUNT 5.47 M/mm3 (4.10-5.30)
[2024-11-16 17:12] LABS: A/G RATIO 0.8 (1-2); ALANINE AMINOTRANSFERASE,ALT 25 U/L (14-59); ALBUMIN 2.7 g/dl (3.4-5.0); ALKALINE PHOSPHATASE 78 U/L (46-116); ANION GAP 12.3 (5-15); ASPARTATE AMNIOTRANSFERASE,AST 34 U/L (15-37); BILIRUBIN TOTAL 0.7 mg/dL (0.2-1.0); BLOOD UREA NITROGEN,BUN 60 mg/dL (7-18); BUN/CREATININE RATIO 33.3 (14-18); CALCIUM 8.2 mg/dL (8.5-10.1); CARBON DIOXIDE,CO2 30 mEq/L (21-32); CHLORIDE,CL 91 mEq/L (98-107); CREATININE 1.8 mg/dL (0.55-1.02); ESTIMATED GFR 27 mL/min (>60); GLUCOSE RANDOM 175 mg/dL (70-99); MAGNESIUM 2.6 mg/dL (1.8-2.4); POTASSIUM,K 3.3 mEq/L (3.5-5.1); PROTEIN TOTAL,TP 6.2 g/dl (6.4-8.2); SODIUM,NA 130 mEq/L (136-145); TROPONIN I HIGH SENSITIVITY 31 pg/mL (<=51)
[2024-11-16 17:25] LABS: APPEARANCE,URINE CLEAR (Clear); BILIRUBIN,URINE NEGATIVE (Negative); COLOR,URINE YELLOW (Yellow); GLUCOSE,URINE NEGATIVE (Negative); KETONES,URINE NEGATIVE (Negative); LEUKOCYTE ESTERASE,URINE NEGATIVE (Negative); NITRITE,URINE NEGATIVE (Negative); OCCULT BLOOD,URINE NEGATIVE (Negative); PROTEIN,URINE NEGATIVE (Negative); UROBILINOGEN,URINE 0.2 (0.2-1.0)
[2024-11-16] MEDS: Acetaminophen 325 MG Tab PO PRN (22:34)
[2024-11-16] MEDS: Sodium Chloride 0.9% 1,000 ML IV SCH (22:35)
[2024-11-16] MEDS ORDERED: Albuterol/Ipratropium 3.0-0.5 MG/3 ML Neb Soln NEB PRN (23:38)
[2024-11-17 05:28] LABS: A/G RATIO 0.8 (1-2); ALBUMIN 2.6 g/dl (3.4-5.0); ANION GAP 11.7 (5-15); BILIRUBIN TOTAL 0.7 mg/dL (0.2-1.0); CREATININE 1.8 mg/dL (0.55-1.02); EST CRCL DRUG DOSING (CG) 21.39 mL/min; POTASSIUM,K 2.7 mEq/L (3.5-5.1); PROTEIN TOTAL,TP 5.9 g/dl (6.4-8.2)
[2024-11-17 07:29] LABS: HEMATOCRIT 48.5 % (37.0-47.0); HEMOGLOBIN 16.2 gm/dl (12.0-16.0); MEAN CORPUSCULAR HEMOGLOBIN 29.9 pg (28.0-32.0); MEAN CORPUSCULAR HGB CONC 33.4 g/dl (32.0-36.0); MEAN CORPUSCULAR VOLUME 89.6 fl (83.0-99.0); PLATELET COUNT,PLT 216 K/mm3 (150-400); RED BLOOD CELL COUNT 5.41 M/mm3 (4.10-5.30); WHITE BLOOD CELL COUNT,WBC 6.18 K/mm3 (3.9-11.3)
[2024-11-17 07:30] LABS: BASOPHILS PERCENT AUTO 0.3 % (0.0-1.0); IMMATURE GRAN ABSOLUTE AUTO 0.04 K/mm3 (0.00-0.05); IMMATURE GRAN PERCENT AUTO 0.6 % (0.0-0.4); LYMPHOCYTES ABSOLUTE AUTO 0.8 K/mm3 (1.0-4.8); LYMPHOCYTES PERCENT AUTO 12.8 % (24.0-44.0); MONOCYTES ABSOLUTE AUTO 0.6 K/mm3 (0.0-0.8); MONOCYTES PERCENT AUTO 9.4 % (0.0-8.0); NEUTROPHILS ABSOLUTE AUTO 4.8 K/mm3 (1.8-7.7); NEUTROPHILS PERCENT AUTO 76.9 % (41.0-71.0)
[2024-11-17] MEDS ORDERED: Bisacodyl 5 MG Tab PO PRN (08:13)
[2024-11-17] MEDS ORDERED: Acetaminophen 325 MG Tab PO PRN (08:13)
[2024-11-17] MEDS ORDERED: Sennosides/Docusate Sodium 50-8.6 MG Tab PO PRN (09:00)
[2024-11-17] MEDS: Metoprolol Tartrate 100 MG Tab PO SCH (09:29)
[2024-11-17] MEDS: Potassium Chloride 20 MEQ Tab.ER PO ONE (09:31)
[2024-11-17] MEDS: Calcium Carbonate 600 MG Tab PO SCH (09:32)
[2024-11-17] MEDS: rOPINIRole 1 MG Tab PO SCH ×2 (09:32→19:55)
[2024-11-17] MEDS: Magnesium Oxide 400 MG Tab PO SCH (09:32)
[2024-11-17] MEDS: guaiFENesin 600 MG Tab.ER PO SCH (09:32)
[2024-11-17] MEDS: Bisacodyl 5 MG Tab PO SCH (09:32)
[2024-11-17] MEDS: Pantoprazole 40 MG Tab.CR PO SCH (09:33)
[2024-11-17] MEDS: Ferrous Sulfate 324 MG Tab.EC PO SCH (09:33)
[2024-11-17] MEDS: Acetaminophen/HYDROcodone 325-5 MG Tab PO PRN (10:49)
[2024-11-17] MEDS: Potassium Chloride 10 MEQ in Premix Bag 1 BAG IV SCH (10:51)
[2024-11-17] MEDS: Doxycycline Monohydrate 100 MG Cap PO SCH (12:50)
[2024-11-17] MEDS: DESVENLAFAXINE SUCCINATE 50 MG PO SCH (16:01)
[2024-11-17] MEDS: TRELEGY ELLIPTA INH SCH (17:48)
[2024-11-17] MEDS: Mineral Oil/Petrolatum Ophth Oint 3.5 GM Tube EYELF SCH (19:53)
[2024-11-17] MEDS: Rivaroxaban 15 MG Tab PO SCH (19:53)
[2024-11-17] MEDS: Montelukast 10 MG Tab PO SCH (19:54)
[2024-11-18 04:33] LABS: BASOPHILS PERCENT AUTO 0.2 % (0.0-1.0); EOSINOPHILS PERCENT AUTO 0.2 % (0.0-6.0); HEMATOCRIT 44.5 % (37.0-47.0); HEMOGLOBIN 14.4 gm/dl (12.0-16.0); IMMATURE GRAN ABSOLUTE AUTO 0.03 K/mm3 (0.00-0.05); IMMATURE GRAN PERCENT AUTO 0.6 % (0.0-0.4); LYMPHOCYTES ABSOLUTE AUTO 0.7 K/mm3 (1.0-4.8); LYMPHOCYTES PERCENT AUTO 15.4 % (24.0-44.0); MEAN CORPUSCULAR HEMOGLOBIN 29.7 pg (28.0-32.0); MEAN CORPUSCULAR HGB CONC 32.4 g/dl (32.0-36.0); MEAN CORPUSCULAR VOLUME 91.8 fl (83.0-99.0); MEAN PLATELET VOLUME 10.8 fl (9.4-12.3); MONOCYTES ABSOLUTE AUTO 0.4 K/mm3 (0.0-0.8); MONOCYTES PERCENT AUTO 7.4 % (0.0-8.0); NEUTROPHILS ABSOLUTE AUTO 3.6 K/mm3 (1.8-7.7); NEUTROPHILS PERCENT AUTO 76.2 % (41.0-71.0); PLATELET COUNT,PLT 179 K/mm3 (150-400); RED BLOOD CELL COUNT 4.85 M/mm3 (4.10-5.30); WHITE BLOOD CELL COUNT,WBC 4.75 K/mm3 (3.9-11.3)
[2024-11-18 05:25] LABS: A/G RATIO 0.7 (1-2); ALBUMIN 2.3 g/dl (3.4-5.0); ANION GAP 12.3 (5-15); BILIRUBIN TOTAL 0.8 mg/dL (0.2-1.0); BUN/CREATININE RATIO 36.2 (14-18); CALCIUM 7.5 mg/dL (8.5-10.1); CREATININE 1.3 mg/dL (0.55-1.02); EST CRCL DRUG DOSING (CG) 29.62 mL/min; MAGNESIUM 2.4 mg/dL (1.8-2.4); POTASSIUM,K 3.3 mEq/L (3.5-5.1); PROTEIN TOTAL,TP 5.4 g/dl (6.4-8.2)
[2024-11-18] MEDS: Potassium Chloride 20 MEQ Tab.ER PO ONE ×2 (08:08→20:46)
[2024-11-18] MEDS: Levothyroxine 100 MCG Tab PO SCH (08:09)
[2024-11-18] MEDS: Bumetanide 1 MG Tab PO SCH (13:00)
[2024-11-19 04:15] LABS: BASOPHILS PERCENT AUTO 0.1 % (0.0-1.0); EOSINOPHILS ABSOLUTE AUTO 0.1 K/mm3 (0.0-0.4); EOSINOPHILS PERCENT AUTO 0.9 % (0.0-6.0); HEMATOCRIT 44.8 % (37.0-47.0); HEMOGLOBIN 14.7 gm/dl (12.0-16.0); IMMATURE GRAN ABSOLUTE AUTO 0.02 K/mm3 (0.00-0.05); IMMATURE GRAN PERCENT AUTO 0.3 % (0.0-0.4); LYMPHOCYTES ABSOLUTE AUTO 0.8 K/mm3 (1.0-4.8); LYMPHOCYTES PERCENT AUTO 10.5 % (24.0-44.0); MEAN CORPUSCULAR HEMOGLOBIN 30.1 pg (28.0-32.0); MEAN CORPUSCULAR HGB CONC 32.8 g/dl (32.0-36.0); MEAN CORPUSCULAR VOLUME 91.6 fl (83.0-99.0); MEAN PLATELET VOLUME 10.5 fl (9.4-12.3); MONOCYTES ABSOLUTE AUTO 0.5 K/mm3 (0.0-0.8); MONOCYTES PERCENT AUTO 5.7 % (0.0-8.0); NEUTROPHILS ABSOLUTE AUTO 6.5 K/mm3 (1.8-7.7); NEUTROPHILS PERCENT AUTO 82.5 % (41.0-71.0); PLATELET COUNT,PLT 182 K/mm3 (150-400); RED BLOOD CELL COUNT 4.89 M/mm3 (4.10-5.30); WHITE BLOOD CELL COUNT,WBC 7.83 K/mm3 (3.9-11.3)
[2024-11-19 04:41] LABS: A/G RATIO 0.8 (1-2); ALBUMIN 2.5 g/dl (3.4-5.0); ANION GAP 9.1 (5-15); BILIRUBIN TOTAL 0.8 mg/dL (0.2-1.0); BUN/CREATININE RATIO 29.1 (14-18); CALCIUM 7.7 mg/dL (8.5-10.1); CREATININE 1.1 mg/dL (0.55-1.02); MAGNESIUM 2.3 mg/dL (1.8-2.4); POTASSIUM,K 3.1 mEq/L (3.5-5.1); PROTEIN TOTAL,TP 5.6 g/dl (6.4-8.2)
[2024-11-19] MEDS: Levothyroxine 100 MCG Tab PO SCH (06:21)
[2024-11-19] MEDS: Potassium Chloride 20 MEQ Tab.ER PO SCH (08:33)
[2024-11-19] MEDS: Ondansetron 4 MG Tab.DIS PO PRN (09:01)
[2024-11-19] MEDS: cefTRIAXone 2 GM Vial IVPUSH SCH (13:16)
[2024-11-19] MEDS: Azithromycin 250 MG Tab PO SCH (13:17)
[2024-11-20] MEDS: Sodium Chloride 0.9% 500 ML IV ONE (01:06)
[2024-11-20 04:57] LABS: BASOPHILS PERCENT AUTO 0.2 % (0.0-1.0); EOSINOPHILS PERCENT AUTO 0.1 % (0.0-6.0); HEMATOCRIT 46.6 % (37.0-47.0); HEMOGLOBIN 15.2 gm/dl (12.0-16.0); IMMATURE GRAN ABSOLUTE AUTO 0.05 K/mm3 (0.00-0.05); IMMATURE GRAN PERCENT AUTO 0.5 % (0.0-0.4); LYMPHOCYTES ABSOLUTE AUTO 0.9 K/mm3 (1.0-4.8); MEAN CORPUSCULAR HEMOGLOBIN 30.1 pg (28.0-32.0); MEAN CORPUSCULAR HGB CONC 32.6 g/dl (32.0-36.0); MEAN CORPUSCULAR VOLUME 92.3 fl (83.0-99.0); MEAN PLATELET VOLUME 11.3 fl (9.4-12.3); MONOCYTES ABSOLUTE AUTO 0.6 K/mm3 (0.0-0.8); MONOCYTES PERCENT AUTO 5.7 % (0.0-8.0); NEUTROPHILS ABSOLUTE AUTO 8.4 K/mm3 (1.8-7.7); NEUTROPHILS PERCENT AUTO 84.5 % (41.0-71.0); PLATELET COUNT,PLT 204 K/mm3 (150-400); RED BLOOD CELL COUNT 5.05 M/mm3 (4.10-5.30); WHITE BLOOD CELL COUNT,WBC 9.93 K/mm3 (3.9-11.3)
[2024-11-20 05:12] LABS: ANION GAP 9.5 (5-15); CALCIUM 7.6 mg/dL (8.5-10.1); CREATININE 1.2 mg/dL (0.55-1.02); EST CRCL DRUG DOSING (CG) 32.09 mL/min; POTASSIUM,K 3.5 mEq/L (3.5-5.1)
[2024-11-21 05:48] LABS: BASOPHILS PERCENT AUTO 0.1 % (0.0-1.0); EOSINOPHILS ABSOLUTE AUTO 0.1 K/mm3 (0.0-0.4); EOSINOPHILS PERCENT AUTO 0.8 % (0.0-6.0); HEMATOCRIT 47.3 % (37.0-47.0); HEMOGLOBIN 15.3 gm/dl (12.0-16.0); IMMATURE GRAN ABSOLUTE AUTO 0.04 K/mm3 (0.00-0.05); IMMATURE GRAN PERCENT AUTO 0.5 % (0.0-0.4); LYMPHOCYTES ABSOLUTE AUTO 0.6 K/mm3 (1.0-4.8); LYMPHOCYTES PERCENT AUTO 7.8 % (24.0-44.0); MEAN CORPUSCULAR HEMOGLOBIN 29.8 pg (28.0-32.0); MEAN CORPUSCULAR HGB CONC 32.3 g/dl (32.0-36.0); MEAN PLATELET VOLUME 10.9 fl (9.4-12.3); MONOCYTES ABSOLUTE AUTO 0.6 K/mm3 (0.0-0.8); MONOCYTES PERCENT AUTO 7.4 % (0.0-8.0); NEUTROPHILS ABSOLUTE AUTO 6.5 K/mm3 (1.8-7.7); NEUTROPHILS PERCENT AUTO 83.4 % (41.0-71.0); PLATELET COUNT,PLT 250 K/mm3 (150-400); RED BLOOD CELL COUNT 5.14 M/mm3 (4.10-5.30); WHITE BLOOD CELL COUNT,WBC 7.81 K/mm3 (3.9-11.3)
[2024-11-21 06:17] LABS: ANION GAP 12.8 (5-15); CALCIUM 7.6 mg/dL (8.5-10.1); EST CRCL DRUG DOSING (CG) 38.5 mL/min; MAGNESIUM 2.4 mg/dL (1.8-2.4); POTASSIUM,K 4.8 mEq/L (3.5-5.1)
[2024-11-21] MEDS: Bumetanide 1 MG Tab PO SCH (06:35)
[2024-11-21] MEDS ORDERED: Metolazone 2.5 MG Tab PO SCH (09:00)
[2024-11-21] MEDS ORDERED: Promethazine 25 MG Tab PO PRN (20:27)
[2024-11-21] MEDS: Metoclopramide 10 MG/2 ML SDV IVPUSH PRN (21:04)
[2024-11-21] MEDS: Diclofenac Sodium 1% Gel 100 GM Tube TOP PRN (23:41)
[2024-11-22] MEDS: Albuterol/Ipratropium 3.0-0.5 MG/3 ML Neb Soln INH PRN (02:30)
[2024-11-22 06:04] LABS: ANION GAP 14.3 (5-15); BUN/CREATININE RATIO 21.4 (14-18); CALCIUM 8.3 mg/dL (8.5-10.1); CREATININE 1.4 mg/dL (0.55-1.02); EST CRCL DRUG DOSING (CG) 27.5 mL/min
[2024-11-22 06:05] LABS: BASOPHILS PERCENT AUTO 0.1 % (0.0-1.0); EOSINOPHILS PERCENT AUTO 0.3 % (0.0-6.0); HEMATOCRIT 54.4 % (37.0-47.0); IMMATURE GRAN ABSOLUTE AUTO 0.08 K/mm3 (0.00-0.05); LYMPHOCYTES ABSOLUTE AUTO 0.7 K/mm3 (1.0-4.8); LYMPHOCYTES PERCENT AUTO 9.2 % (24.0-44.0); MEAN CORPUSCULAR HEMOGLOBIN 29.9 pg (28.0-32.0); MEAN CORPUSCULAR VOLUME 93.5 fl (83.0-99.0); MEAN PLATELET VOLUME 11.5 fl (9.4-12.3); MONOCYTES ABSOLUTE AUTO 0.6 K/mm3 (0.0-0.8); MONOCYTES PERCENT AUTO 7.8 % (0.0-8.0); NEUTROPHILS ABSOLUTE AUTO 6.5 K/mm3 (1.8-7.7); NEUTROPHILS PERCENT AUTO 81.6 % (41.0-71.0); NRBC ABSOLUTE 0.03 (0.00-0.02); NRBC PERCENT 0.4 % (0.0-0.2); RED BLOOD CELL COUNT 5.82 M/mm3 (4.10-5.30); WHITE BLOOD CELL COUNT,WBC 7.93 K/mm3 (3.9-11.3)
[2024-11-22 06:10] LABS: HEMOGLOBIN 17.4 gm/dl (12.0-16.0); PLATELET COUNT,PLT 399 K/mm3 (150-400)
[2024-11-22 06:29] LABS: POTASSIUM,K 5.3 mEq/L (3.5-5.1)
[2024-11-22] MEDS: LORazepam 0.5 MG Tab PO PRN (09:20)
[2024-11-23 05:47] LABS: BASOPHILS PERCENT AUTO 0.2 % (0.0-1.0); BUN/CREATININE RATIO 20.7 (14-18); CALCIUM 7.5 mg/dL (8.5-10.1); CREATININE 1.4 mg/dL (0.55-1.02); EOSINOPHILS PERCENT AUTO 0.2 % (0.0-6.0); HEMATOCRIT 48.9 % (37.0-47.0); IMMATURE GRAN ABSOLUTE AUTO 0.06 K/mm3 (0.00-0.05); IMMATURE GRAN PERCENT AUTO 0.7 % (0.0-0.4); LYMPHOCYTES ABSOLUTE AUTO 0.7 K/mm3 (1.0-4.8); LYMPHOCYTES PERCENT AUTO 8.4 % (24.0-44.0); MEAN CORPUSCULAR HEMOGLOBIN 29.8 pg (28.0-32.0); MEAN CORPUSCULAR HGB CONC 31.9 g/dl (32.0-36.0); MEAN CORPUSCULAR VOLUME 93.5 fl (83.0-99.0); MEAN PLATELET VOLUME 11.1 fl (9.4-12.3); MONOCYTES ABSOLUTE AUTO 0.7 K/mm3 (0.0-0.8); MONOCYTES PERCENT AUTO 8.7 % (0.0-8.0); NEUTROPHILS ABSOLUTE AUTO 6.7 K/mm3 (1.8-7.7); NEUTROPHILS PERCENT AUTO 81.8 % (41.0-71.0); PLATELET COUNT,PLT 373 K/mm3 (150-400); RED BLOOD CELL COUNT 5.23 M/mm3 (4.10-5.30)
[2024-11-23 05:51] LABS: HEMOGLOBIN 15.6 gm/dl (12.0-16.0)
[2024-11-23 06:10] LABS: ANION GAP 10.6 (5-15)
[2024-11-23 06:13] LABS: EST CRCL DRUG DOSING (CG) 27.2 mL/min; POTASSIUM,K 3.6 mEq/L (3.5-5.1)
[2024-11-23] MEDS: Potassium Chloride 20 MEQ Tab.ER PO ONE (10:19)
[2024-11-23] MEDS: Cefdinir 300 MG Cap PO ONE (14:09)
[2024-11-23 14:29] VITALS: BP 105/67; PULSE 101
== END 2024-11-23 15:02 | DRG 682 ==
LOC: JD.ED 15:33 → JD.MS 19:09
PROVIDERS: ADMIT Family Medicine; ATTEND Internal Medicine
DX: R09.02 Hypoxemia (principal); R53.1 Weakness; I11.0 Hypertensive heart disease with heart failure; N17.9 Acute kidney failure, unspecified; J18.9 Pneumonia, unspecified organism; E87.1 Hypo-osmolality and hyponatremia; I13.0 Hypertensive heart and chronic kidney disease with heart failure and stage 1 through stage 4 chronic kidney disease, or unspecified chronic kidney disease; I50.22 Chronic systolic (congestive) heart failure; M00.9 Pyogenic arthritis, unspecified; L97.929 Non-pressure chronic ulcer of unspecified part of left lower leg with unspecified severity; N18.4 Chronic kidney disease, stage 4 (severe); I48.91 Unspecified atrial fibrillation; Z79.890 Hormone replacement therapy; I50.9 Heart failure, unspecified; K21.9 Gastro-esophageal reflux disease without esophagitis; J44.89 Other specified chronic obstructive pulmonary disease; Z90.710 Acquired absence of both cervix and uterus; M19.90 Unspecified osteoarthritis, unspecified site; F32.A Depression, unspecified; G47.00 Insomnia, unspecified; F15.90 Other stimulant use, unspecified, uncomplicated; H54.7 Unspecified visual loss; H26.9 Unspecified cataract; J30.9 Allergic rhinitis, unspecified; E78.00 Pure hypercholesterolemia, unspecified; K59.09 Other constipation; G89.29 Other chronic pain; M81.0 Age-related osteoporosis without current pathological fracture; E03.9 Hypothyroidism, unspecified; Z96.659 Presence of unspecified artificial knee joint; Z96.649 Presence of unspecified artificial hip joint; E86.0 Dehydration; E87.6 Hypokalemia; E87.8 Other disorders of electrolyte and fluid balance, not elsewhere classified; I08.3 Combined rheumatic disorders of mitral, aortic and tricuspid valves; I27.20 Pulmonary hypertension, unspecified; Z66 Do not resuscitate; G25.81 Restless legs syndrome; Z88.6 Allergy status to analgesic agent; Z88.1 Allergy status to other antibiotic agents; Z88.5 Allergy status to narcotic agent; Z88.0 Allergy status to penicillin; Z88.8 Allergy status to other drugs, medicaments and biological substances; Z79.1 Long term (current) use of non-steroidal anti-inflammatories (NSAID); Z79.01 Long term (current) use of anticoagulants; Z79.51 Long term (current) use of inhaled steroids; Z79.899 Other long term (current) drug therapy; Z79.02 Long term (current) use of antithrombotics/antiplatelets; Z86.711 Personal history of pulmonary embolism; Z87.01 Personal history of pneumonia (recurrent); Z86.16 Personal history of COVID-19; Z90.89 Acquired absence of other organs; Z98.49 Cataract extraction status, unspecified eye; Z90.49 Acquired absence of other specified parts of digestive tract; Z98.890 Other specified postprocedural states
CPT/HCPCS: 36415; 71045; 80053; 81003; 83735; 83880; 84484; 85025; 87428; 93005; 99285; C1758; 80048; 82947; 87641; 93010; 93880; 93880-26; 94640; 94668; 94760; 94761; 97110-GP; 97116-GP; 97162-GP; 97530-GP; A9270-GY; J0696; J2765; J3480; J7030; J7620-GY